=== PATIENT | male | born 1990 | race Two or more races ===

== ENCOUNTER 2023-03-16 21:10 | Inpatient (IN) | payer MEDICAID, SELFPAY ==
[2023-03-16 21:16] VITALS: BP 137/82; RESP 16; TEMP 37.1
[2023-03-16 22:37] LABS: Add Urine Microscopic? NO; Charge for UA Resulting for Rev
[2023-03-16 22:38] VITALS: RESP 16
[2023-03-16 22:39] LABS: Bilirubin Urine Neg (Negative); Blood Urine Neg (Negative); Glucose Urine UA Norm (Normal); Ketones Urine Negative (Negative); Leukocyte Esterase Urine Negative (Negative); Nitrate Urine Negative (Negative); Protein Urine Neg (Negative); Urine Appearance Clear (CLEAR); Urine Color Yellow (Yellow); Urobilinogen Urine Neg (Negative); pH Urine 7 (5-7)
[2023-03-16 22:49] LABS: Amphetamines Screen Urine Negative (Negative); Barbiturates Screen Urine Negative (Negative); Benzodiazepines Screen Urine Positive (Negative); Cocaine Screen Urine Negative (Negative); Opiate Screen Urine Negative (Negative); PCP Screen Urine Negative (Negative); THC Screen Urine Negative (Negative)
[2023-03-16 23:02] VITALS: BP 123/76; PULSE 77; RESP 18; TEMP 36.6; O2SAT 99
[2023-03-16 23:03] LABS: Basophils # 0.1 10^3/uL (0.0-0.1); Basophils % 0.5 %; Eosinophils # 0.3 10^3/uL (0.0-0.8); Eosinophils % 2.7 %; Hematocrit 45.5 % (37-53); Lymphocytes # 1.8 10^3/uL (0.8-4.8); Lymphocytes % 19.5 %; Mean Corpuscular HGB Conc 32.3 g/dL (30-55); Mean Corpuscular Hemoglobin 28.1 pg (27-33); Mean Corpuscular Volume 86.8 fl (82-101); Mean Platelet Volume 9.2 fL (7.4-10.4); Monocytes # 0.5 10^3/uL (0.2-0.9); Monocytes % 5.4 %; Neutrophils # 6.64 10^3/uL (1.8-7.7); Neutrophils % 71.7 %; Nucleated Red Blood Cells % 0 %; Platelet Count 377 10^3/cmm (157-399); Red Blood Count 5.24 10^6/uL (3.85-5.65); Red Cell Distribution Width 11.9 % (12.1-15.1); White Blood Count 9.27 10^3/uL (3.29-11.43)
--- NOTE | 2023-03-16 23:08 | ED.C_ITS ---
HPI - Psych 2 General: Chief Complaint: Psychiatric Symptoms Stated Complaint: MHE Time Seen by Provider: 03/16/23 21:23 History of Present Illness: 32-year-old male patient currently an in patient at a local rehab facility. He presents stating that he became homicidal today after having hallucinations. These hallucinations are auditory hallucinations, and the voices were telling him to hurt people. He has had these before. He has been in rehab for 1 week, and in a psychiatric inpatient facility prior to that. He has no other health problems he says. Review of Systems 2 Const: Denies: fever(s), chills or body aches Eyes: Denies: change in vision Card: Denies: chest pain or palpitations Resp: Denies: dyspnea, productive cough, non-productive cough or wheezing GI: Denies: abdominal pain, nausea, vomiting, diarrhea or hematochezia Skin/Breast: Denies: rash Neuro: Denies: headache(s), weakness in extremities, dizziness or confusion Physical Exam 2 Const: COMMON NORMALS: no acute distress GENERAL APPEARANCE: cooperative; not ill appearing and not frail appearing HENMT: COMMON NORMALS: normocephalic, atraumatic and Normal external nose present HEAD & SCALP: normocephalic and atraumatic FACE & SINUS: normal facial exam and face symmetric NOSE: Normal external nose present Eye: COMMON NORMALS: Equal, round and reactive pupils present and EOMs intact bilaterally PUPIL: Yes Equal, round and reactive pupils present Neck/C-Spine: GENERAL: Yes trachea midline Chest: CHEST: Yes Symmetrical chest wall rise Resp: COMMON NORMALS: normal respiratory effort, No retractions, No use of accessory muscles and clear to auscultation bilaterally AUSCULTATION: clear to auscultation bilaterally Cardio: COMMON NORMALS: regular rate and regular rhythm RATE: regular rate RHYTHM: regular rhythm GI: COMMON NORMALS: Normal to inspection, nondistended, normoactive bowel sounds present Extremity: COMMON NORMALS: no pedal edema Neuro: LAURENCE COMA SCALE: document GCS findings Westley coma scale eye opening: Spontaneous Laurence coma scale verbal response: Orientated Laurence coma scale motor response: Obey commands Laurence coma scale total score: 15 S ENSORY EXAM: Yes extremities (intact) Psych: COMMON NORMALS: speech normal SPEECH: Yes normal speech Skin: COMMON NORMALS: no rashes or lesions noted GENERAL SKIN EXAM: no rashes or lesions noted Course 2 Vital Signs: Vital signs: Vital Signs Temperature 98.7 F 03/16/23 21:16 Respiratory Rate 17 03/16/23 23:19 Blood Pressure 137/82 03/16/23 21:16 [facility] - Psych Medical Decision Making Patient has been calm and cooperative here. He does ask for clonazepam for anxiety. He was offered Zyprexa, but declined. Mildly suspicious about overuse of benzodiazepines, as he is positive on his drug screen despite being in a rehabilitation facility. He is otherwise medically stable. Spoke with psychiatry, they are willing to admit. Lab Data 03/16/23 22:45 03/16/23 22:45 Laboratory Results Urine Color Yellow (Yellow) 03/16/23 21:38 Urine Appearance Clear (CLEAR) 03/16/23 21:38 Urine pH 7 (5-7) 03/16/23 21:38 Ur Specific [place] 1.010 (1.005-1.030) 03/16/23 21:38 Urine Protein Neg (Negative) 03/16/23 21:38 Urine Glucose (UA) Norm (Normal) 03/16/23 21:38 Urine Ketones Negative (Negative) 03/16/23 21:38 Urine Blood Neg (Negative) 03/16/23 21:38 Urine Nitrate Negative (Negative) 03/16/23 21:38 Urine Bilirubin Neg (Negative) 03/16/23 21:38 Urine Urobilinogen Neg mg/dL (Negative) 03/16/23 21:38 Ur Leukocyte Esterase Negative (Negative) 03/16/23 21:38 Urine Opiates Screen Negative ng/mL (Negative) 03/16/23 21:38 Ur Barbiturates Screen Negative ng/mL (Negative) 03/16/23 21:38 Ur Phencyclidine Scrn Negative ng/mL (Negative) 03/16/23 21:38 Ur Amphetamines Screen Negative ng/mL (Negative) 03/16/23 21:38 U Benzodiazepines Scrn Positive ng/mL (Negative) H 03/16/23 21:38 Urine Cocaine Screen Negative ng/mL (Negative) 03/16/23 21:38 U Marijuana (THC) Screen Negative ng/mL (Negative) 03/16/23 21:38 No radiology studies performed this visit Discharge Plan Discharge Patient Disposition: Admitted As Inpatient Admit Provider: Rosas Mendoza Clinical Impression: Homicidal ideation Condition: Stable Coding Level of Care Code ED [employer] for Roxy Ruiz
[2023-03-16 23:19] VITALS: RESP 17
[2023-03-16 23:26] LABS: Alanine Aminotransferase 21 U/L (0-41); Albumin Level 4.7 g/dL (3.5-5.2); Alkaline Phosphatase 82 U/L (40-130); Anion Gap 13.1 (5-19); Aspartate Amino Transferase 18 U/L (0-40); Blood Urea Nitrogen 9 mg/dL (6-20); Calcium 9.8 mg/dL (8.5-10.5); Carbon Dioxide 29 mmol/L (22-29); Chloride 98 mmol/L (98-107); Globulin 2.9 g/dL (1.3-4.6); Glomerular Filtration Rate 97.2 mL/min (90-130); Glucose 90 mg/dL (65-115); Osmolality Calculated 280 mOsm/kg (285-295); Potassium 4.1 mmol/L (3.5-5.1); Sodium 136 mmol/L (136-145); Total Bilirubin 0.2 mg/dL (0.15-1.2); Total Protein 7.6 g/dL (6.6-8.7)
[2023-03-16 23:36] LABS: Acetaminophen < 5.0 ug/mL (10-30); Alcohol Level < 10 mg/dL (0-10); Salicylate < 0.3 mg/dL (3-10)
[2023-03-17] MEDS: trazodone 50 mg Tablet PO (00:03)
[2023-03-17 06:00] VITALS: BP 108/68; PULSE 66; RESP 16; O2SAT 98
--- NOTE | 2023-03-17 11:13 | P.NPUHP_ITS ---
Providers/Chief Complaint 2 Admitting Physician: Rosas Mendoza MD Chief Complaint: MHE HPI NPU History of Present Illness Neto Simpson is a 32 year old male who presented to the emergency department with the following report: Chief Complaint: Psychiatric Symptoms Stated Complaint: MHE Time Seen by Provider: 03/16/23 21:23 History of Present Illness: 32-year-old male patient currently an inpatient at a local rehab facility. He presents stating that he became homicidal today after having hallucinations. These hallucinations are auditory hallucinations, and the voices were telling him to hurt people. He has had these before. He has been in rehab for 1 week, and in a psychiatric inpatient facility prior to that. He has no other health problems he says. The patient was admitted to the neuropsychiatric unit for definitive treatment of those issues. The patient presents today endorsing that he is taking Vraylar and Prozac and would like to start Klonopin again. He reports that he was in drug rehabilitation because he didn?t have a place to go, but that he was ?clean from everything.? The patient reports that he is trying to get his ADHD treated. The patient endorses that he was at a rehab as he was sent there from [facility] in [place]. He reports that when he gets around people, he gets really anxious and starts hearing stuff, and has panic attacks, and he was ?sent away? from that facility. He is looking at getting into a long term house, but currently has nowhere to live. He reports that he is now on disability. He reports that rehab was more like a skilled nursing. He reports that he won?t actually be homeless or on the streets, referring to his mom, who is his guardian helping with that. The patient reports that he has had four psychiatric hospitalizations since January. He reports that, in his life, he has had over a dozen psychiatric hospitalizations. He reports that he was getting outpatient services at [facility] in [place]. He reports that his stepdad kicked him out of the house because he was doing some dumb stuff, and ever since then he has been in and out of hospitals and trying to find a place. He reports that he has an assault charge from a [facility] on his record and no facilities want to take him.? He reports that there is long term house in [place] they are looking into. He endorses that he had some services in [place] for ADHD. He reports that he tested positive for weed so they had to wait on that treatment, and his stepdad kicked him out the same day. He reports that the provider was trying to put him on Vyvanse. He reports that he has post-traumatic stress disorder symptoms which lead to him wanting to get violent and he feels trapped and like he needs to run, like he is in flight or fight mode, survival mode. He reports that he wants Vyvanse and Clonazepam, as they ?level me out and help me focus.? He reports that the Prozac helps with his depression. He reports that he is also on Suboxone which helps with the cravings. The patient reports that he smokes about a pack of cigarettes a day. He denies alcohol use. He reports that he ?dabbles? in marijuana. He denies cocaine. He reports that he did a little bit of methamphetamine about two months ago when he ?slipped.? He endorses that he overdosed on fentanyl last year. The patient reports that he just completed rehab two weeks ago. He reports that he was on 8 mg of the Suboxone two weeks ago, and he was going to [facility] in [place], and they sent him with a five days' supply, and then he couldn?t find a place to get refills. He reports that he went to [facility] and was on Suboxone there, and he did not get any supply when he left, and he was wondering if the Suboxone could be ?jumped up? to where he used to be at the 8 mg. The patient endorses DUI at age 20. He reports that he had one possession charge at 24 years old and went to skilled nursing. The patient reports that he gets panic attacks that last all day, and that goes into a manic episode, and then he starts to ?trip? on if people are actually saying shit to him or implying things, having paranoia, and he wants to fight and gets violent. He reports that he started hearing voices about ten years ago. He did bath salts, when he was 22 years old. He reports that he did them twice and went into psychosis for a year. He reports that his aunt has schizophrenia. He reports that now just the anxiety ramps up the voices. He reports that Vraylar kind of helps but it doesn?t, that is why he takes the Klonopin to calm down. He reports that he does not have depression anymore and thinks the Prozac has helped. He reports that he was diagnosed with major depressive disorder at [facility], recently, but that he does not feel depressed all the time. He endorses low mood, and previous suicidal thoughts but not currently. He reports that the paranoia is prevalent now. The patient endorses nightmares and flashbacks from time in skilled nursing. He reports [facility], longest stint was a year to a year and a half. He has also done county time. He reports that the last time he got out was in December, and that pretty much did him in and he can?t deal with society. PSYCHIATRIC HISTORY: As above. SUBSTANCE ABUSE HISTORY: As above.? FAMILY HISTORY: The patient endorses mental health issues on both sides of the family. He endorses addiction issues on dad?s side of the family. He denies suicide attempts or completions in his family. DEVELOPMENTAL HISTORY: The patient denies any issues with his mother?s or delivery of him. The patient reports learning to walk and talk and meeting developmental milestones on time. The patient denies speech therapy, learning support, emotional support, but maybe special education classes. PSYCHOSOCIAL HISTORY: The patient reports that his mother and father were together at his for about six years. He reports that he has a younger sister and brother from that union. He reports that he has a couple half-sisters through his dad. He describes his childhood as pretty good. He reports that at 15 he had a burglary charge. He endorses that he was in placement for four months. He denies emotional, physical, or sexual abuse. He endorses trauma from being in skilled nursing and from time on the streets. He went to the eleventh grade in high school and did not graduate but got his GED. He denies additional training. He endorses being heterosexual, with no long-term relationships. He has not been or had children. Denies service or a confucianist belief system. He reports that his longest job was three months. He endorses that he is currently homeless. He reports that his mom is his guardian and is working with social work to find him a place. LEGAL HISTORY: The patient reports he has been to penitentiary ten times, the longest time being a year and a half. MEDICAL HISTORY: The patient denies any known allergies to medications. The patient endorses Hepatitis C, that was in remission, and he is unsure of that status now. Meds NPU Home Medications Medication Instructions Recorded Confirmed Last Taken Type chlorpromazine 50 mg tablet 50 mg PO BEDTIME 03/16/23 03/16/23 Unknown History mirtazapine 15 mg tablet 15 mg PO BEDTIME 03/16/23 03/16/23 Unknown History cariprazine 3 mg capsule (Vraylar) 3 mg PO DAILY 03/17/23 03/17/23 Unknown History fluoxetine 60 mg tablet 60 mg PO DAILY 03/17/23 03/17/23 Unknown History prazosin 1 mg capsule 1 mg PO QPM 03/17/23 03/17/23 Unknown History Allergies Allergy/AdvReac Type Severity Reaction Status Date / Time haloperidol [From Haldol] Allergy ALGY-Anaphy Verified 03/17/23 18:02 laxis Mental Status Exam 2 MSE Comments: This is a well-nourished, well-developed, white male, in hospital scrubs, with limited grooming and eye contact. No abnormal movements, except for mild psychomotor retardation. Cooperative with exam in mild distress. Speech was normal rate and volume. Mood described as anxious and overwhelmed; affect congruent. Thought process, organized. Thought content: patient denied any suicidal or homicidal ideation, there were no delusions reported or noted, patient denied any auditory or visual hallucinations. Attention, concentration, and memory appeared intact, but none were formally tested. Alert and oriented times three. Insight and judgment appear limited versus impaired. Impulse control is limited versus impaired. Vitals/I&O/Wt Last Vital Signs Temp 97.8 F 03/16/23 23:02 Pulse 66 03/17/23 06:00 Resp 16 03/17/23 06:00 BP 108/68 03/17/23 06:00 Pulse Ox 98 03/17/23 06:00 O2 Del Method Room Air 03/16/23 23:06 Weight last 48 hrs Weight 90.446 kg Weight 86.183 kg Data NPU 03/16/23 22:45 03/16/23 22:45 A&P Assessment and plan (1) Homicidal ideation: (2) Schizoaffective disorder: (3) Methamphetamine use disorder, severe: (4) Psychosis: Plan This is a 32-year-old white male with a long history of addiction, legal challenges and reported mental health and addiction issues who presents from [facility] with reports that he had failure to adjust their and is with guardian and they are looking for alternative residential situations. 1.? Further evaluate records to determine medications. 2.? Encourage individual, group, and milieu therapy. 3.? Continue q-15-minute checks for safety. 4.? Recommend sober living treatment at the highest level of care to which the patient is willing to commit. Involuntary Hold Information 2 96 Hour Hold: 96 Hour Involuntary Admission: No Attestations NPU 2 Medical Necessity Statement*: Inpatient hospitalization is medically necessary and the clinically appropriate intervention, at this time. We will monitor medications and make changes as indicated. Patient will be in the hospital for over two midnights. Likely length of stay is three to five days. Coding Level of Care Code Acute Code for [facility] Fwd Diagnoses Homicidal ideation R45.850 Schizoaffective disorder F25.9 Methamphetamine use disorder, severe F15.20 Psychosis F29
[2023-03-17] MEDS: nicotine 2 mg Gum BUCCAL (11:29)
[2023-03-17 14:00] VITALS: BP 110/67; PULSE 81; RESP 16; TEMP 36.8; O2SAT 97
[2023-03-17] MEDS: nicotine 4 mg lozenge MUCOUS MEM ×2 (14:37→17:02)
[2023-03-17] MEDS: OLANZapine 5 mg ODT PO (18:08)
[2023-03-17 19:41] VITALS: BP 117/78; PULSE 85; RESP 16; TEMP 36.4; O2SAT 96
[2023-03-17] MEDS: fluoxetine 20 mg Capsule 60 MG PO (21:02)
[2023-03-17] MEDS: mirtazapine 15 mg Tablet PO (21:02)
[2023-03-18 06:00] VITALS: BP 112/68; PULSE 66; RESP 16; O2SAT 97
[2023-03-18] MEDS: nicotine 4 mg lozenge MUCOUS MEM ×5 (07:49→19:35)
[2023-03-18] MEDS: fluoxetine 20 mg Capsule 60 MG PO (07:49)
[2023-03-18 14:00] VITALS: BP 126/78; PULSE 77; RESP 16; TEMP 36.6; O2SAT 98
[2023-03-18] MEDS: hyDROXYzine 25 mg Capsule 50 MG PO (18:37)
--- NOTE | 2023-03-18 18:37 | PC.NURSE ---
PRN VISTARIL 50 MG GIVEN PO PER PT C/O STATED ANXIETY, SPECIFICALLY ASKING FOR ZYPREXA BUT PATIENT DOES NOT APPEAR TO HAVE PSYCHOSIS OR AGGRESSION, WAS CALMLY READING A BOOK IN HIS ROOM.
--- NOTE | 2023-03-18 18:46 | W.PM.NPUPNS ---
Subjective NPU Subjective: Patient presented today reporting that he is doing fine. He continues to lobby for medication adjustments vet will be controlled substances including Klonopin and possible ADHD medication like Vyvanse. We discussed this being a better decision for the place where he is established versus sending him to a place with Klonopin and Suboxone is his medications. He does not seem to understand disposition and suggest that he could just go to a fci if he is not going to get the help and medications that I need and that work. We discussed that prescribing medication also involves the likelihood that this regimen would be supported moving forward or do like he acknowledges has been done before where he is given the medication for several days inpatient and then discharged without that medication. Mental Status Exam MSE Comments: This is a well-nourished, well-developed, white male, in hospital scrubs, with limited grooming and eye contact. No abnormal movements, except for mild psychomotor retardation. Cooperative with exam in mild distress. Speech was normal rate and volume. Mood described as anxious and overwhelmed; affect congruent. Thought process, organized. Thought content: patient denied any suicidal or homicidal ideation, there were no delusions reported or noted, patient denied any auditory or visual hallucinations. Attention, concentration, and memory appeared intact, but none were formally tested. Alert and oriented times three. Insight and judgment appear limited versus impaired. Impulse control is limited versus impaired. Vitals/I&O/Wt Last Vital Signs Temp 97.8 F 03/18/23 14:00 Pulse 77 03/18/23 14:00 Resp 16 03/18/23 14:00 BP 126/78 03/18/23 14:00 Pulse Ox 98 03/18/23 14:00 O2 Del Method Room Air 03/18/23 14:00 Data NPU 03/16/23 22:45 03/16/23 22:45 A&P Assessment and plan (1) Homicidal ideation: (2) Schizoaffective disorder: (3) Methamphetamine use disorder, severe: (4) Psychosis: Plan This is a 32-year-old white male with a long history of addiction, legal challenges and reported mental health and addiction issues who presents from [facility] with reports that he had failure to adjust their and is with guardian and they are looking for alternative residential situations. 1.? Further evaluate records to determine medications. 2.? Encourage individual, group, and milieu therapy. 3.? Continue q-15-minute checks for safety. 4.? Recommend sober living treatment at the highest level of care to which the patient is willing to commit. 5. Speak with guardian about medication options as well as the fact that we will not be able to keep him here while they look for alternative residential settings.. Involuntary Hold Information 96 Hour Hold: 96 Hour Involuntary Admission: No Attestations NPU Medical Necessity Statement*: Inpatient hospitalization is medically necessary and the clinically appropriate intervention, at this time. We will monitor medications and make changes as indicated. Likely length of stay is 2-4 days. Coding Level of Care Code Acute Code for [facility] Fwd Diagnoses Homicidal ideation R45.850 Schizoaffective disorder F25.9 Methamphetamine use disorder, severe F15.20 Psychosis F29
[2023-03-18] MEDS: prazosin 1 mg Capsule PO (19:35)
[2023-03-18] MEDS: trazodone 50 mg Tablet PO (19:35)
[2023-03-18] MEDS: mirtazapine 15 mg Tablet PO (19:35)
[2023-03-18 20:23] VITALS: BP 102/59; PULSE 86; RESP 18; O2SAT 97
[2023-03-19 06:00] VITALS: BP 91/62; PULSE 76; RESP 18; O2SAT 99
[2023-03-19] MEDS: fluoxetine 20 mg Capsule 60 MG PO (07:58)
[2023-03-19] MEDS: nicotine 4 mg lozenge MUCOUS MEM ×6 (07:58→19:54)
[2023-03-19] MEDS: NON-FORMULARY MEDICATION (Cariprazine [Vraylar] 3 mg capsule) 3 EACH PO (09:31)
[2023-03-19 14:00] VITALS: BP 110/73; PULSE 90; RESP 14; TEMP 36.3; O2SAT 97
--- NOTE | 2023-03-19 18:09 | P.NPUPN_ITS ---
Subjective NPU 2 Subjective: Patient presented today continuing to lobby for medications as he sees appropriate. Did receive a Susanna scale done December 14, 2022 with diagnostic impression of ADHD inattentive type. We continue to discuss the challenges that he may face getting someone to move forward with treatment with a stimulant given some of his challenges and identified also that for me people treating him with a stimulant would take the Klonopin and Suboxone off the table. We continue to discuss that we would not be able to allow him to stay here for a prolonged time if the level 2 placement did not move quickly. Mental Status Exam 2 MSE Comments: This is a well-nourished, well-developed, white male, in hospital scrubs, with limited grooming and eye contact. No abnormal movements, except for mild psychomotor retardation. Cooperative with exam in mild distress. Speech was normal rate and volume. Mood described as anxious and overwhelmed; affect congruent. Thought process, organized. Thought content: patient denied any suicidal or homicidal ideation, there were no delusions reported or noted, patient denied any auditory or visual hallucinations. Attention, concentration, and memory appeared intact, but none were formally tested. Alert and oriented times three. Insight and judgment appear limited versus impaired. Impulse control is limited versus impaired. Vitals/I&O/Wt Last Vital Signs Temp 97.9 F 03/19/23 19:57 Pulse 84 03/19/23 19:57 Resp 16 03/19/23 19:57 BP 109/61 03/19/23 19:57 Pulse Ox 97 03/19/23 19:57 O2 Del Method Room Air 03/19/23 19:57 Data NPU 03/16/23 22:45 03/16/23 22:45 A&P Assessment and plan (1) Homicidal ideation: (2) Schizoaffective disorder: (3) Methamphetamine use disorder, severe: (4) Psychosis: Plan This is a 32-year-old white male with a long history of addiction, legal challenges and reported mental health and addiction issues who presents from [facility] with reports that he had failure to adjust their and is with guardian and they are looking for alternative residential situations. 1.? Further evaluate records to determine medications. 2.? Encourage individual, group, and milieu therapy. 3.? Continue q-15-minute checks for safety. 4.? Recommend sober living treatment at the highest level of care to which the patient is willing to commit. 5. Speak with guardian about medication options as well as the fact that we will not be able to keep him here while they look for alternative residential settings. His level 2 paperwork is complete but there is some question of whether they will need significant time for placement and discussing with the mother and discharged home given that possibility Involuntary Hold Information 2 96 Hour Hold: 96 Hour Involuntary Admission: No Attestations NPU 2 Medical Necessity Statement*: Inpatient hospitalization is medically necessary and the clinically appropriate intervention, at this time. We will monitor medications and make changes as indicated. Likely length of stay is 2-4 days. Coding Level of Care Code Acute Code for [facility] Fwd Diagnoses Homicidal ideation R45.850 Schizoaffective disorder F25.9 Methamphetamine use disorder, severe F15.20 Psychosis F29
[2023-03-19] MEDS: prazosin 1 mg Capsule PO (19:55)
[2023-03-19] MEDS: mirtazapine 15 mg Tablet PO (19:55)
[2023-03-19] MEDS: trazodone 50 mg Tablet PO (19:56)
[2023-03-19 19:57] VITALS: BP 109/61; PULSE 84; RESP 16; TEMP 36.6; O2SAT 97
[2023-03-20 06:00] VITALS: BP 133/71; PULSE 82; RESP 16; O2SAT 97
--- NOTE | 2023-03-20 07:14 | P.NPUPN_ITS ---
Subjective NPU 2 Subjective: Patient presented today reporting that he is doing okay. He continues to be frustrated at the lack of movement on medication for ADHD. We discussed the current situation with him being rejected by multiple facilities and the fact that he and his guardian/mother may need to explore some different avenues for placement given some of his history. He endorsed an openness to any options for placement for him to get stable. He denied any side effects to his current medications. Mental Status Exam 2 MSE Comments: This is a well-nourished, well-developed, white male, in hospital scrubs, with limited grooming and eye contact. No abnormal movements, except for mild psychomotor retardation. Cooperative with exam in mild distress. Speech was normal rate and volume. Mood described as anxious and overwhelmed; affect congruent. Thought process, organized. Thought content: patient denied any suicidal or homicidal ideation, there were no delusions reported or noted, patient denied any auditory or visual hallucinations. Attention, concentration, and memory appeared intact, but none were formally tested. Alert and oriented times three. Insight and judgment appear limited versus impaired. Impulse control is limited versus impaired. Vitals/I&O/Wt Last Vital Signs Temp 97.9 F 03/19/23 19:57 Pulse 82 03/20/23 06:00 Resp 16 03/20/23 06:00 BP 133/71 03/20/23 06:00 Pulse Ox 97 03/20/23 06:00 O2 Del Method Room Air 03/20/23 06:00 Data NPU 03/16/23 22:45 03/16/23 22:45 A&P Assessment and plan (1) Homicidal ideation: (2) Schizoaffective disorder: (3) Methamphetamine use disorder, severe: (4) Psychosis: Plan This is a 32-year-old white male with a long history of addiction, legal challenges and reported mental health and addiction issues who presents from [facility] with reports that he had failure to adjust their and is with guardian and they are looking for alternative residential situations. 1.? Further evaluate records to determine medications. 2.? Encourage individual, group, and milieu therapy. 3.? Continue q-15-minute checks for safety. 4.? Recommend sober living treatment at the highest level of care to which the patient is willing to commit. 5. Speak with guardian about medication options as well as the fact that we will not be able to keep him here while they look for alternative residential settings. His level 2 paperwork is complete but there is some question of whether they will need significant time for placement and discussing with the mother and discharged home given that possibility Involuntary Hold Information 2 96 Hour Hold: 96 Hour Involuntary Admission: No Attestations NPU 2 Medical Necessity Statement*: Inpatient hospitalization is medically necessary and the clinically appropriate intervention, at this time. We will monitor medications and make changes as indicated. Likely length of stay is 2-4 days. Coding Level of Care Code Acute Code for [facility] Fwd Diagnoses Homicidal ideation R45.850 Schizoaffective disorder F25.9 Methamphetamine use disorder, severe F15.20 Psychosis F29
[2023-03-20] MEDS: fluoxetine 20 mg Capsule 60 MG PO (07:28)
[2023-03-20] MEDS: NON-FORMULARY MEDICATION (Cariprazine [Vraylar] 3 mg capsule) 3 EACH PO (07:28)
[2023-03-20] MEDS: nicotine 4 mg lozenge MUCOUS MEM (07:28)
[2023-03-20] MEDS: nicotine 21 mg Patch 1 PATCH TRANSDERMA (09:38)
[2023-03-20 14:00] VITALS: BP 111/78; PULSE 80; RESP 14; TEMP 36.4; O2SAT 100
[2023-03-20 19:51] VITALS: BP 103/67; PULSE 83; RESP 18; TEMP 36.5; O2SAT 97
[2023-03-20] MEDS: prazosin 1 mg Capsule PO (20:03)
[2023-03-20] MEDS: mirtazapine 15 mg Tablet PO (20:03)
[2023-03-21] MEDS: NON-FORMULARY MEDICATION (Cariprazine [Vraylar] 3 mg capsule) 3 EACH PO (08:37)
[2023-03-21] MEDS: fluoxetine 20 mg Capsule 60 MG PO (08:37)
[2023-03-21] MEDS: nicotine 4 mg lozenge MUCOUS MEM ×5 (09:03→19:49)
--- NOTE | 2023-03-21 13:47 | W.PM.NPUPNS ---
Subjective NPU Subjective: Patient presented today reporting that things are going okay. He reports that he and his mother have spoken and that [facility] reports having 2 labs available and that no one bed will be available for him if he gets there quickly. We discussed working with the treatment team to find out if that is in fact true #1 and if his guardian is excepting of that as the discharge plan #2. He denies any problems with the medication and was for the first time more focused on this discharge possibility than trying to get 1 of those 3 medications started. He denied any side effects of his current medications. Mental Status Exam MSE Comments: This is a well-nourished, well-developed, white male, in hospital scrubs, with limited grooming and eye contact. No abnormal movements, except for mild psychomotor retardation. Cooperative with exam in mild distress. Speech was normal rate and volume. Mood described as anxious and overwhelmed; affect congruent. Thought process, organized. Thought content: patient denied any suicidal or homicidal ideation, there were no delusions reported or noted, patient denied any auditory or visual hallucinations. Attention, concentration, and memory appeared intact, but none were formally tested. Alert and oriented times three. Insight and judgment appear limited versus impaired. Impulse control is limited versus impaired. Vitals/I&O/Wt Last Vital Signs Temp 97.7 F 03/20/23 19:51 Pulse 83 03/20/23 19:51 Resp 18 03/20/23 19:51 BP 103/67 03/20/23 19:51 Pulse Ox 97 03/20/23 19:51 O2 Del Method Room Air 03/20/23 19:51 Data NPU 03/16/23 22:45 03/16/23 22:45 A&P Assessment and plan (1) Homicidal ideation: (2) Schizoaffective disorder: (3) Methamphetamine use disorder, severe: (4) Psychosis: Plan This is a 32-year-old white male with a long history of addiction, legal challenges and reported mental health and addiction issues who presents from [facility] with reports that he had failure to adjust their and is with guardian and they are looking for alternative residential situations. 1.? Further evaluate records to determine medications. 2.? Encourage individual, group, and milieu therapy. 3.? Continue q-15-minute checks for safety. 4.? Recommend sober living treatment at the highest level of care to which the patient is willing to commit. 5. Speak with guardian about medication options as well as the fact that we will not be able to keep him here while they look for alternative residential settings. His level 2 paperwork is complete but there is some question of whether they will need significant time for placement and discussing with the mother and discharged home given that possibility. Will discuss with mother patient's report of them being open to [facility]. Involuntary Hold Information 96 Hour Hold: 96 Hour Involuntary Admission: No Attestations NPU Medical Necessity Statement*: Inpatient hospitalization is medically necessary and the clinically appropriate intervention, at this time. We will monitor medications and make changes as indicated. Likely length of stay is 1-3 days. Coding Level of Care Code Acute Code for g Fwd Diagnoses Homicidal ideation R45.850 Schizoaffective disorder F25.9 Methamphetamine use disorder, severe F15.20 Psychosis F29
[2023-03-21 14:00] VITALS: BP 117/74; PULSE 78; RESP 14; TEMP 36.6; O2SAT 98
[2023-03-21] MEDS: prazosin 1 mg Capsule PO (20:29)
[2023-03-21] MEDS: mirtazapine 15 mg Tablet PO (20:29)
[2023-03-21] MEDS: trazodone 50 mg Tablet PO (20:30)
[2023-03-21 20:38] VITALS: BP 151/81; PULSE 86; RESP 20; O2SAT 97
[2023-03-22] MEDS: nicotine 4 mg lozenge MUCOUS MEM ×4 (07:27→15:42)
[2023-03-22] MEDS: fluoxetine 20 mg Capsule 60 MG PO (08:31)
[2023-03-22] MEDS: NON-FORMULARY MEDICATION (Cariprazine [Vraylar] 3 mg capsule) 3 EACH PO (08:31)
--- NOTE | 2023-03-22 08:44 | P.NPUPN_ITS ---
Subjective NPU 2 Subjective: Patient reporting that he is hopeful that he will be able to discharge to 1 of these places that maybe he has been before. He continues to have reluctance that we have been unwilling to start any of the controlled substances that he thinks will help. We discussed that Dr. Paula would be here tomorrow and he would take a fresh look at things and decide whether he thinks any of them would be reasonable. He denied any side effects of his current medications. Mental Status Exam 2 MSE Comments: This is a well-nourished, well-developed, white male, in hospital scrubs, with limited grooming and eye contact. No abnormal movements, except for mild psychomotor retardation. Cooperative with exam in mild distress. Speech was normal rate and volume. Mood described as anxious and overwhelmed; affect congruent. Thought process, organized. Thought content: patient denied any suicidal or homicidal ideation, there were no delusions reported or noted, patient denied any auditory or visual hallucinations. Attention, concentration, and memory appeared intact, but none were formally tested. Alert and oriented times three. Insight and judgment appear limited versus impaired. Impulse control is limited versus impaired. Vitals/I&O/Wt Last Vital Signs Temp 98 F 03/21/23 14:00 Pulse 86 03/21/23 20:38 Resp 20 H 03/21/23 20:38 BP 151/81 03/21/23 20:38 Pulse Ox 97 03/21/23 20:38 O2 Del Method Room Air 03/21/23 20:38 Weight last 48 hrs Weight 82.554 kg Data NPU 03/16/23 22:45 03/16/23 22:45 A&P Assessment and plan (1) Homicidal ideation: (2) Schizoaffective disorder: (3) Methamphetamine use disorder, severe: (4) Psychosis: Plan This is a 32-year-old white male with a long history of addiction, legal challenges and reported mental health and addiction issues who presents from [facility] with reports that he had failure to adjust their and is with guardian and they are looking for alternative residential situations. 1.? Further evaluate records to determine medications. 2.? Encourage individual, group, and milieu therapy. 3.? Continue q-15-minute checks for safety. 4.? Recommend sober living treatment at the highest level of care to which the patient is willing to commit. 5. Speak with guardian about medication options as well as the fact that we will not be able to keep him here while they look for alternative residential settings. His level 2 paperwork is complete but there is some question of whether they will need significant time for placement and discussing with the mother and discharged home given that possibility. Will discuss with mother patient's report of them being open to [facility]. Involuntary Hold Information 2 96 Hour Hold: 96 Hour Involuntary Admission: No Attestations NPU 2 Medical Necessity Statement*: Inpatient hospitalization is medically necessary and the clinically appropriate intervention, at this time. We will monitor medications and make changes as indicated. Likely length of stay is 2-3 days. Coding Level of Care Code Acute Code for [facility] Fwd Diagnoses Homicidal ideation R45.850 Schizoaffective disorder F25.9 Methamphetamine use disorder, severe F15.20 Psychosis F29
[2023-03-22 14:00] VITALS: BP 112/78; PULSE 106; RESP 18; TEMP 36.6; O2SAT 97
[2023-03-22] MEDS: mirtazapine 15 mg Tablet PO (20:01)
[2023-03-22] MEDS: prazosin 1 mg Capsule PO (20:01)
[2023-03-22 20:30] VITALS: BP 105/63; PULSE 70; RESP 16; TEMP 36.4; O2SAT 95
[2023-03-23 06:00] VITALS: RESP 16
[2023-03-23] MEDS: NON-FORMULARY MEDICATION (Cariprazine [Vraylar] 3 mg capsule) 3 EACH PO (08:27)
[2023-03-23] MEDS: fluoxetine 20 mg Capsule 60 MG PO (08:27)
[2023-03-23] MEDS: nicotine 4 mg lozenge MUCOUS MEM ×6 (08:28→20:20)
[2023-03-23 14:00] VITALS: BP 127/73; PULSE 102; RESP 18; TEMP 36.6; O2SAT 97
--- NOTE | 2023-03-23 16:19 | P.NPUPN_ITS ---
Subjective NPU 2 Subjective: 32-year-old male admitted with homicidal ideation with a history of psychosis and depression and ADHD. Patient had reported that he continued to have anxiety and requested Klonopin. Patient had also reported having problems with staying on task. He had reported that he was hopeful at the possibility of attending were living in a more formalized treatment facility as he states he had been unable to manage his own self-care. He reported no side effects from his current medication regimen. Patient reports some sleep continuity disruption. Mental Status Exam 2 MSE Comments: This is a well-nourished, well-developed, white male, in hospital scrubs, with limited grooming and eye contact. No abnormal movements, except for mild psychomotor retardation. He was cooperative with exam in mild distress. Speech was normal rate and volume. Mood remained anxious. His affect was mood congruent. Thought process, organized. Thought content: patient denied any suicidal or homicidal ideation, there were no delusions reported or noted, patient denied any auditory or visual hallucinations. Attention, concentration, and memory appeared intact, but none were formally tested. Alert and oriented times three. Insight and judgment appear limited versus impaired. Impulse control is limited versus impaired. Vitals/I&O/Wt Last Vital Signs Temp 97.8 F 03/23/23 14:00 Pulse 102 H 03/23/23 14:00 Resp 18 03/23/23 14:00 BP 127/73 03/23/23 14:00 Pulse Ox 97 03/23/23 14:00 O2 Del Method Room Air 03/23/23 14:00 03/23/23 03/23/23 03/23/23 06:59 14:59 22:59 Intake Total 440 / 440 Balance 440 / 440 Data NPU 03/16/23 22:45 03/16/23 22:45 A&P Assessment and plan (1) Homicidal ideation: (2) Schizoaffective disorder: (3) Methamphetamine use disorder, severe: (4) Psychosis: Plan This is a 32-year-old white male with a long history of addiction, legal challenges and reported mental health and addiction issues who presents from [facility] with reports that he had failure to adjust their and is with guardian and they are looking for alternative residential situations. 1.? Further evaluate records to determine medications. 2.? Encourage individual, group, and milieu therapy. 3.? Continue q-15-minute checks for safety. 4.? Recommend sober living treatment at the highest level of care to which the patient is willing to commit. 5. Speak with guardian about medication options as well as the fact that we will not be able to keep him here while they look for alternative residential settings. His level 2 paperwork is complete but there is some question of whether they will need significant time for placement and discussing with the mother and discharged home given that possibility. Will discuss with mother patient's report of them being open to [facility]. 6. Consider adjustment or change in medications due to concerns of drug drug interactions associated with [id number] substrates including prozac, chlorpromazine, and vraylar. Involuntary Hold Information 2 96 Hour Hold: 96 Hour Involuntary Admission: No Attestations NPU 2 Medical Necessity Statement*: Inpatient hospitalization is medically necessary and the clinically appropriate intervention, at this time. We will monitor medications and make changes as indicated. Likely length of stay is 3-6 days. Coding Level of Care Code Acute Code for g Fwd Diagnoses Homicidal ideation R45.850 Schizoaffective disorder F25.9 Methamphetamine use disorder, severe F15.20 Psychosis F29
[2023-03-23 20:07] VITALS: BP 97/64; PULSE 89; RESP 18; TEMP 36.8; O2SAT 97
[2023-03-23] MEDS: trazodone 50 mg Tablet PO (20:19)
[2023-03-23] MEDS: mirtazapine 15 mg Tablet PO (20:19)
[2023-03-23] MEDS: prazosin 1 mg Capsule PO (20:19)
[2023-03-24 06:00] VITALS: BP 117/72; PULSE 85; RESP 16; TEMP 36.8; O2SAT 98
[2023-03-24] MEDS: fluoxetine 20 mg Capsule 60 MG PO (07:05)
[2023-03-24] MEDS: NON-FORMULARY MEDICATION (Cariprazine [Vraylar] 3 mg capsule) 3 EACH PO (07:05)
[2023-03-24] MEDS: nicotine 4 mg lozenge MUCOUS MEM ×7 (07:05→19:20)
--- NOTE | 2023-03-24 12:22 | W.PM.NPUPNS ---
Subjective NPU Subjective: 32-year-old male admitted with homicidal ideation with a history of psychosis, polysubstance abuse, depression and ADHD. Patient reported no side effects from his medication. He continued to endorse feeling depressed. He appeared easily distracted and continue to report having chronic problems with completing tasks while struggling with having difficulty sitting still as well. Patient had reported having some difficulties with sleep. He had endorsed depressed mood. He denied any racing thoughts. He had reported having continued problems with anxiety but did not endorse any panic symptoms. Mental Status Exam MSE Comments: This is a well-nourished, well-developed, white male, in hospital scrubs, with limited grooming and eye contact. No abnormal movements, except for mild psychomotor retardation. He was cooperative with exam in mild distress. Speech was normal rate and volume. Mood described as anxious. His affect was restricted today. Thought process was organized. Thought content: patient denied any suicidal or homicidal ideation, there were no delusions reported or noted, patient denied any auditory or visual hallucinations. Attention span was poor. Recent and remote memory appeared grossly intact. He was alert and oriented times three. Insight and judgment appear limited versus impaired. Impulse control is limited versus impaired. Vitals/I&O/Wt Last Vital Signs Temp 98.3 F 03/24/23 06:00 Pulse 85 03/24/23 06:00 Resp 16 03/24/23 06:00 BP 117/72 03/24/23 06:00 Pulse Ox 98 03/24/23 06:00 O2 Del Method Room Air 03/24/23 06:00 Weight last 48 hrs Weight 82.554 kg Data NPU 03/16/23 22:45 03/16/23 22:45 A&P Assessment and plan (1) Homicidal ideation: (2) Schizoaffective disorder: (3) Methamphetamine use disorder, severe: (4) Psychosis: Plan This is a 32-year-old white male with a long history of addiction, legal challenges and reported mental health and addiction issues who presents from [facility] with reports that he had failure to adjust their and is with guardian and they are looking for alternative residential situations. 1.? Further evaluate records to determine medications. 2.? Encourage individual, group, and milieu therapy. 3.? Continue q-15-minute checks for safety. 4.? Recommend sober living treatment at the highest level of care to which the patient is willing to commit. 5. Speak with guardian about medication options as well as the fact that we will not be able to keep him here while they look for alternative residential settings. His level 2 paperwork is complete but there is some question of whether they will need significant time for placement and discussing with the mother and discharged home given that possibility. Will discuss with mother patient's report of them being open to [facility]. 6. Consider adjustment or change in medications due to concerns of drug drug interactions associated with [id number] substrates including prozac, chlorpromazine, and vraylar. Will d/c thorazine. Reduce prozac to 40mg daily and increase remeron to 30mg po qhs. Involuntary Hold Information 96 Hour Hold: 96 Hour Involuntary Admission: No Attestations NPU Medical Necessity Statement*: Inpatient hospitalization is medically necessary and the clinically appropriate intervention, at this time. We will monitor medications and make changes as indicated. Likely length of stay is 3-6 days. Coding Level of Care Code Acute Code for g Fwd Diagnoses Homicidal ideation R45.850 Schizoaffective disorder F25.9 Methamphetamine use disorder, severe F15.20 Psychosis F29
[2023-03-24 14:00] VITALS: BP 90/57; PULSE 90; RESP 14; TEMP 36.5; O2SAT 99
[2023-03-24] MEDS: trazodone 50 mg Tablet PO (19:20)
[2023-03-24] MEDS: prazosin 1 mg Capsule PO (19:20)
[2023-03-24] MEDS: mirtazapine 15 mg Tablet 30 MG PO (19:21)
[2023-03-24 19:26] VITALS: BP 113/78; PULSE 85; RESP 18; TEMP 36.4; O2SAT 99
[2023-03-25 06:00] VITALS: BP 107/54; PULSE 82; RESP 16; O2SAT 95
[2023-03-25] MEDS: nicotine 4 mg lozenge MUCOUS MEM ×5 (07:04→19:52)
[2023-03-25] MEDS: fluoxetine 20 mg Capsule 40 MG PO (07:43)
[2023-03-25] MEDS: NON-FORMULARY MEDICATION (Cariprazine [Vraylar] 3 mg capsule) 3 EACH PO (07:44)
[2023-03-25 14:00] VITALS: BP 129/81; PULSE 97; RESP 16; TEMP 36.6; O2SAT 97
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
[2023-03-25 19:46] VITALS: BP 108/69; PULSE 93; RESP 16; TEMP 36.9; O2SAT 96
[2023-03-25] MEDS: trazodone 50 mg Tablet PO (19:51)
[2023-03-25] MEDS: prazosin 1 mg Capsule PO (19:51)
[2023-03-25] MEDS: mirtazapine 15 mg Tablet 30 MG PO (19:51)
[2023-03-25] MEDS: buprenorphine-naloxone 4-1 mg Film 2 EACH SUBLINGUAL (19:52)
[2023-03-26 06:00] VITALS: BP 109/72; PULSE 82; RESP 16; TEMP 36.7; O2SAT 97
[2023-03-26] MEDS: nicotine 4 mg lozenge MUCOUS MEM ×6 (07:36→19:19)
[2023-03-26] MEDS: fluoxetine 20 mg Capsule 40 MG PO (07:36)
[2023-03-26] MEDS: buprenorphine-naloxone 4-1 mg Film 2 EACH SUBLINGUAL ×2 (07:37→19:19)
[2023-03-26] MEDS: NON-FORMULARY MEDICATION (Cariprazine [Vraylar] 3 mg capsule) 3 EACH PO (07:37)
[2023-03-26 14:00] VITALS: BP 136/84; PULSE 102; RESP 18; TEMP 36.6; O2SAT 98
--- NOTE | 2023-03-26 14:57 | W.PM.NPUPNS ---
Subjective NPU Subjective: 32-year-old male admitted with homicidal ideation with a history of psychosis, polysubstance abuse, depression and ADHD. Patient had reported that he felt better while taking the Suboxone. He reported no side effects from his medication. He had endorsed depression and anxiety. He reported no feelings of hopelessness. He had been less isolative on the milieu. He had reported having problems with being able to manage his anxiety and specific rehabilitation centers. He had reported no psychotic symptoms currently. He had endorsed having been under the influence of methamphetamines before and having been psychotic. He reported no suicidal thoughts currently. Mental Status Exam MSE Comments: This is a well-nourished, well-developed, white male, in hospital scrubs, with limited grooming and eye contact. No abnormal movements, except for mild psychomotor retardation. Cooperative with exam in moderate distress. Speech was normal in rate and volume. Mood described as down. His affect was restricted in range and mood congruent. Thought process was linear and organized. Thought content: patient denied any suicidal or homicidal ideation, there were no delusions reported or noted, patient denied any auditory or visual hallucinations. Attention, concentration, and memory appeared intact, but none were formally tested. Alert and oriented times three. Insight and judgment appear limited versus impaired. Impulse control is limited versus impaired. Vitals/I&O/Wt Last Vital Signs Temp 98 F 03/26/23 14:00 Pulse 102 H 03/26/23 14:00 Resp 18 03/26/23 14:00 BP 136/84 03/26/23 14:00 Pulse Ox 98 03/26/23 14:00 O2 Del Method Room Air 03/26/23 06:00 Data NPU 03/16/23 22:45 03/16/23 22:45 A&P Assessment and plan (1) Psychosis: (2) Homicidal ideation: (3) Schizoaffective disorder: (4) Methamphetamine use disorder, severe: Plan This is a 32-year-old white male with a long history of addiction, legal challenges and reported mental health and addiction issues who presents from [facility] with reports that he had failure to adjust their and is with guardian and they are looking for alternative residential situations. 1.? Further evaluate records to determine medications. 2.? Encourage individual, group, and milieu therapy. 3.? Continue q-15-minute checks for safety. 4.? Recommend sober living treatment at the highest level of care to which the patient is willing to commit. 5. Speak with guardian about medication options as well as the fact that we will not be able to keep him here while they look for alternative residential settings. His level 2 paperwork is complete but there is some question of whether they will need significant time for placement and discussing with the mother and discharged home given that possibility. Will discuss with mother patient's report of them being open to [employer] [facility]. 6. Continue Vraylar 3mg daily. Continue prozac to 40mg daily and remeron at 30mg po qhs. 7. Continue suboxone 8mg/2mg bid. Involuntary Hold Information 96 Hour Hold: 96 Hour Involuntary Admission: No Attestations NPU Medical Necessity Statement*: Inpatient hospitalization is medically necessary and the clinically appropriate intervention, at this time. We will monitor medications and make changes as indicated. Likely length of stay is 2-3 days. Coding Level of Care Code Acute Code for [facility] Fwd Diagnoses Psychosis F29 Homicidal ideation R45.850 Schizoaffective disorder F25.9 Methamphetamine use disorder, severe F15.20
--- NOTE | 2023-03-26 15:54 | PC.NURSE ---
Pt has been very cooperative while on the unit, med compliant and very respectful to staff and other pt's on the unit.
[2023-03-26] MEDS: mirtazapine 15 mg Tablet 30 MG PO (19:19)
[2023-03-26] MEDS: trazodone 50 mg Tablet PO (19:20)
[2023-03-26 19:50] VITALS: BP 117/77; PULSE 79; RESP 18; TEMP 36.6; O2SAT 97
[2023-03-27 06:00] VITALS: BP 124/70; PULSE 61; RESP 15; O2SAT 95
[2023-03-27] MEDS: nicotine 4 mg lozenge MUCOUS MEM ×5 (07:28→19:19)
[2023-03-27] MEDS: NON-FORMULARY MEDICATION (Cariprazine [Vraylar] 3 mg capsule) 3 EACH PO (08:07)
[2023-03-27] MEDS: fluoxetine 20 mg Capsule 40 MG PO (08:07)
[2023-03-27] MEDS: clotrimazole 1% cream 30 gm 1 APPLIC TOPICAL ×2 (08:07→17:24)
[2023-03-27] MEDS: buprenorphine-naloxone 4-1 mg Film 2 EACH SUBLINGUAL ×2 (08:07→17:24)
[2023-03-27 14:00] VITALS: BP 124/71; PULSE 73; RESP 18; TEMP 36.7; O2SAT 98
--- NOTE | 2023-03-27 15:40 | P.NPUPN_ITS ---
Subjective NPU 2 Subjective: 32-year-old male admitted with homicidal ideation with a history of psychosis, polysubstance abuse, depression and ADHD. Patient also endorsed some PTSD related symptoms. He had reported occasional nightmares. He stated that he struggled with discussing time he had spent in [facility]. He had stated that he understands that he cannot return to a homeless intermediate according to this p.o. request. The patient had reported that his mood had been more steady with less opiate cravings since starting the Suboxone. He had stated that he had interviewed to be placed into residential facility and would be agreeable to going there. He reported no side effects from his medication. He had reported some continued nightmares. Mental Status Exam 2 MSE Comments: This is a well-nourished, well-developed, white male, in hospital scrubs, with limited grooming and eye contact. No abnormal movements, except for mild psychomotor retardation. Cooperative with exam in moderate distress. Speech was normal in rate and volume. Mood described as allright His affect was restricted in range and mood congruent. Thought process was linear and organized. Thought content: patient denied any suicidal or homicidal ideation, there were no delusions reported or noted, patient denied any auditory or visual hallucinations. Attention, concentration, and memory appeared intact, but none were formally tested. Alert and oriented times three. Insight and judgment appear limited versus impaired. Impulse control is limited versus impaired. Vitals/I&O/Wt Last Vital Signs Temp 98.1 F 03/27/23 14:00 Pulse 73 03/27/23 14:00 Resp 18 03/27/23 14:00 BP 124/71 03/27/23 14:00 Pulse Ox 98 03/27/23 14:00 O2 Del Method Room Air 03/27/23 06:00 Data NPU 03/16/23 22:45 03/16/23 22:45 A&P Assessment and plan (1) Psychosis: (2) Homicidal ideation: (3) Schizoaffective disorder: (4) Methamphetamine use disorder, severe: Plan This is a 32-year-old white male with a long history of addiction, legal challenges and reported mental health and addiction issues who presents from [facility] with reports that he had failure to adjust their and is with guardian and they are looking for alternative residential situations. 1.? Further evaluate records to determine medications. 2.? Encourage individual, group, and milieu therapy. 3.? Continue q-15-minute checks for safety. 4.? Recommend sober living treatment at the highest level of care to which the patient is willing to commit. 5. Speak with guardian about medication options as well as the fact that we will not be able to keep him here while they look for alternative residential settings. His level 2 paperwork is complete but there is some question of whether they will need significant time for placement and discussing with the mother and discharged home given that possibility. Will discuss with mother patient's report of them being open to [employer] [facility]. 6. Continue Vraylar 3mg daily. Continue prozac to 40mg daily and remeron at 30mg po qhs. 7. Continue suboxone 8mg/2mg bid. Increase prazosin to 2mg at night. Involuntary Hold Information 2 96 Hour Hold: 96 Hour Involuntary Admission: No Attestations NPU 2 Medical Necessity Statement*: Inpatient hospitalization is medically necessary and the clinically appropriate intervention, at this time. We will monitor medications and make changes as indicated. Likely length of stay is 2-3 days. Coding Level of Care Code Acute Code for g Fwd Diagnoses Psychosis F29 Homicidal ideation R45.850 Schizoaffective disorder F25.9 Methamphetamine use disorder, severe F15.20
[2023-03-27] MEDS: prazosin 1 mg Capsule 2 MG PO (19:48)
[2023-03-27] MEDS: mirtazapine 15 mg Tablet 30 MG PO (19:48)
[2023-03-27] MEDS: trazodone 50 mg Tablet PO (19:49)
[2023-03-27 20:46] VITALS: BP 129/71; PULSE 69; RESP 16; TEMP 36.4; O2SAT 97
[2023-03-28 06:00] VITALS: RESP 16
[2023-03-28] MEDS: NON-FORMULARY MEDICATION (Cariprazine [Vraylar] 3 mg capsule) 3 EACH PO (08:12)
[2023-03-28] MEDS: buprenorphine-naloxone 4-1 mg Film 2 EACH SUBLINGUAL ×2 (08:12→17:31)
[2023-03-28] MEDS: fluoxetine 20 mg Capsule 40 MG PO (08:12)
[2023-03-28] MEDS: nicotine 4 mg lozenge MUCOUS MEM ×5 (08:13→18:27)
[2023-03-28] MEDS: clotrimazole 1% cream 30 gm 1 APPLIC TOPICAL ×2 (09:53→17:32)
[2023-03-28 14:00] VITALS: BP 113/75; PULSE 83; RESP 14; TEMP 36.4; O2SAT 95
--- NOTE | 2023-03-28 14:45 | W.PM.NPUPNS ---
Subjective NPU Subjective: 32-year-old male admitted with homicidal ideation with a history of psychosis, polysubstance abuse, depression and ADHD. He reported no nightmares last night. He reported some frustration with not being accepted into a [facility]. He stated that he was willing to consider follow-up with a psychiatrist while returning home to live temporarily until a facility became open for the patient to reside in. He had reported some continued concern about use of illicit drugs. He had reported continued worries and flashbacks regarding his trauma in [facility]. He reported that he frequently avoided discussing matters that it occurred in residential. He reported occasional feelings of hopelessness. He had been less isolative on the milieu. He reported no side effects from the increase in prazosin last night. He reported having no suicidal thoughts at this time. He reported having chronic problems with completing tasks and reports being easily distracted while unable to execute throughout his life. Mental Status Exam MSE Comments: This is a well-nourished, well-developed, white male, in hospital scrubs, with limited grooming and eye contact. No abnormal movements, except for mild psychomotor retardation. Cooperative with exam in moderate distress. Speech was normal in rate and volume. Mood described as okay His affect was restricted in range and mood congruent. Thought process was linear and organized. Thought content: patient denied any suicidal or homicidal ideation, there were no delusions reported or noted, patient denied any auditory or visual hallucinations. Attention, concentration, and memory appeared intact, but none were formally tested. Alert and oriented times three. Insight and judgment. Impulse control is improving. Attention span was poor. Vitals/I&O/Wt Last Vital Signs Temp 97.5 F L 03/27/23 20:46 Pulse 69 03/27/23 20:46 Resp 16 03/28/23 06:00 BP 129/71 03/27/23 20:46 Pulse Ox 97 03/27/23 20:46 O2 Del Method Room Air 03/27/23 20:46 Data NPU 03/16/23 22:45 03/16/23 22:45 A&P Assessment and plan (1) Psychosis: (2) Homicidal ideation: (3) Schizoaffective disorder: (4) Methamphetamine use disorder, severe: Plan This is a 32-year-old white male with a long history of addiction, legal challenges and reported mental health and addiction issues who presents from [facility] with reports that he had failure to adjust their and is with guardian and they are looking for alternative residential situations. 1.? Further evaluate records to determine medications. 2.? Encourage individual, group, and milieu therapy. 3.? Continue q-15-minute checks for safety. 4.? Recommend sober living treatment at the highest level of care to which the patient is willing to commit. 5. Speak with guardian about medication options as well as the fact that we will not be able to keep him here while they look for alternative residential settings. His level 2 paperwork is complete but there is some question of whether they will need significant time for placement and discussing with the mother and discharged home given that possibility. Will discuss with mother patient's report of them being open to [employer] [facility]. 6. Continue Vraylar 3mg daily. Continue prozac to 40mg daily and remeron at 30mg po qhs. 7. Continue suboxone 8mg/2mg bid. Continue prazosin at 2mg at night. Involuntary Hold Information 96 Hour Hold: 96 Hour Involuntary Admission: No Attestations NPU Medical Necessity Statement*: Inpatient hospitalization is medically necessary and the clinically appropriate intervention, at this time. We will monitor medications and make changes as indicated. The patient's likely length of stay is 2-3 days. Coding Level of Care Code Acute Code for [facility] Fwd Diagnoses Psychosis F29 Homicidal ideation R45.850 Schizoaffective disorder F25.9 Methamphetamine use disorder, severe F15.20
[2023-03-28] MEDS: mirtazapine 15 mg Tablet 30 MG PO (19:51)
[2023-03-28] MEDS: trazodone 50 mg Tablet PO (19:51)
[2023-03-28] MEDS: prazosin 1 mg Capsule 2 MG PO (19:51)
[2023-03-28 19:54] VITALS: BP 101/48; PULSE 80; RESP 15; TEMP 36.8; O2SAT 95
--- NOTE | 2023-03-29 06:37 | PC.NURSE ---
pt resp documented.
[2023-03-29] MEDS: NON-FORMULARY MEDICATION (Cariprazine [Vraylar] 3 mg capsule) 3 EACH PO (08:24)
[2023-03-29] MEDS: buprenorphine-naloxone 4-1 mg Film 2 EACH SUBLINGUAL (08:24)
[2023-03-29] MEDS: clotrimazole 1% cream 30 gm 1 APPLIC TOPICAL (08:24)
[2023-03-29] MEDS: fluoxetine 20 mg Capsule 40 MG PO (08:24)
[2023-03-29] MEDS: nicotine 4 mg lozenge MUCOUS MEM ×2 (09:28→11:26)
--- NOTE | 2023-03-29 11:55 | W.PM.NPUDCS ---
Diagnoses at Discharge Discharge Diagnosis (1) Psychosis: Status: Acute (2) Homicidal ideation: Status: Acute (3) Schizoaffective disorder: Status: Acute (4) Methamphetamine use disorder, severe: Status: Acute Reason for Visit Reason for Visit: MHE Brief History: History of Present Illness Neto Simpson is a 32 year old male who presented to the emergency department with the following report: Chief Complaint: Psychiatric Symptoms Stated Complaint: MHE Time Seen by Provider: 03/16/23 21:23 History of Present Illness: 32-year-old male patient currently an inpatient at a local rehab facility. He presents stating that he became homicidal today after having hallucinations. These hallucinations are auditory hallucinations, and the voices were telling him to hurt people. He has had these before. He has been in rehab for 1 week, and in a psychiatric inpatient facility prior to that. He has no other health problems he says. The patient was admitted to the neuropsychiatric unit for definitive treatment of those issues. The patient presents today endorsing that he is taking Vraylar and Prozac and would like to start Klonopin again. He reports that he was in drug rehabilitation because he didn?t have a place to go, but that he was ?clean from everything.? The patient reports that he is trying to get his ADHD treated. The patient endorses that he was at a rehab as he was sent there from [facility] in [place]. He reports that when he gets around people, he gets really anxious and starts hearing stuff, and has panic attacks, and he was ?sent away? from that facility. He is looking at getting into a care home house, but currently has nowhere to live. He reports that he is now on disability. He reports that rehab was more like a nursing home. He reports that he won?t actually be homeless or on the streets, referring to his mom, who is his guardian helping with that. The patient reports that he has had four psychiatric hospitalizations since January. He reports that, in his life, he has had over a dozen psychiatric hospitalizations. He reports that he was getting outpatient services at [facility] in [place]. He reports that his stepdad kicked him out of the house because he was doing some dumb stuff, and ever since then he has been in and out of hospitals and trying to find a place. He reports that he has an assault charge from a alf on his record and no facilities want to take him.? He reports that there is care home house in [place] they are looking into. He endorses that he had some services in [place] for ADHD. He reports that he tested positive for weed so they had to wait on that treatment, and his stepdad kicked him out the same day. He reports that the provider was trying to put him on Vyvanse. He reports that he has post-traumatic stress disorder symptoms which lead to him wanting to get violent and he feels trapped and like he needs to run, like he is in flight or fight mode, survival mode. He reports that he wants Vyvanse and Clonazepam, as they ?level me out and help me focus.? He reports that the Prozac helps with his depression. He reports that he is also on Suboxone which helps with the cravings. The patient reports that he smokes about a pack of cigarettes a day. He denies alcohol use. He reports that he ?dabbles? in marijuana. He denies cocaine. He reports that he did a little bit of methamphetamine about two months ago when he ?slipped.? He endorses that he overdosed on fentanyl last year. The patient reports that he just completed rehab two weeks ago. He reports that he was on 8 mg of the Suboxone two weeks ago, and he was going to [facility] in [place], and they sent him with a five days' supply, and then he couldn?t find a place to get refills. He reports that he went to [facility] and was on Suboxone there, and he did not get any supply when he left, and he was wondering if the Suboxone could be ?jumped up? to where he used to be at the 8 mg. The patient endorses DUI at age 20. He reports that he had one possession charge at 24 years old and went to nursing home. The patient reports that he gets panic attacks that last all day, and that goes into a manic episode, and then he starts to ?trip? on if people are actually saying shit to him or implying things, having paranoia, and he wants to fight and gets violent. He reports that he started hearing voices about ten years ago. He did bath salts, when he was 22 years old. He reports that he did them twice and went into psychosis for a year. He reports that his aunt has schizophrenia. He reports that now just the anxiety ramps up the voices. He reports that Vraylar kind of helps but it doesn?t, that is why he takes the Klonopin to calm down. He reports that he does not have depression anymore and thinks the Prozac has helped. He reports that he was diagnosed with major depressive disorder at [facility], recently, but that he does not feel depressed all the time. He endorses low mood, and previous suicidal thoughts but not currently. He reports that the paranoia is prevalent now. The patient endorses nightmares and flashbacks from time in nursing home. He reports that he has been to [facility] three to four different times, longest stint was a year to a year and a half. He has also done county time. He reports that the last time he got out was in December, and that pretty much did him in and he can?t deal with society. PSYCHIATRIC HISTORY: As above. SUBSTANCE ABUSE HISTORY: As above.? FAMILY HISTORY: The patient endorses mental health issues on both sides of the family. He endorses addiction issues on dad?s side of the family. He denies suicide attempts or completions in his family. DEVELOPMENTAL HISTORY: The patient denies any issues with his mother?s or delivery of him. The patient reports learning to walk and talk and meeting developmental milestones on time. The patient denies speech therapy, learning support, emotional support, but maybe special education classes. PSYCHOSOCIAL HISTORY: The patient reports that his mother and father were together at his for about six years. He reports that he has a younger sister and brother from that union. He reports that he has a couple half-sisters through his dad. He describes his childhood as pretty good. He reports that at 15 he had a burglary charge. He endorses that he was in placement for four months. He denies emotional, physical, or sexual abuse. He endorses trauma from being in nursing home and from time on the streets. He went to the eleventh grade in high school and did not graduate but got his GED. He denies additional training. He endorses being heterosexual, with no long-term relationships. He has not been or had children. Denies service or a mosque belief system. He reports that his longest job was three months. He endorses that he is currently homeless. He reports that his mom is his guardian and is working with social work to find him a place. LEGAL HISTORY: The patient reports he has been to senior living ten times, the longest time being a year and a half. MEDICAL HISTORY: The patient denies any known allergies to medications. The patient endorses Hepatitis C, that was in remission, and he is unsure of that status now. Hospital Course Hospital Course During the hospitalization, the patient had routine laboratory studies which were within normal limits except for a few outliers.? Additionally, there was a general medical evaluation which was also within normal limits and revealed no new acute processes.? At the time of discharge, lethality was denied and psychosis was resolving.? Mood and anxiety were well managed.? The patient endorsed a plan to avoid all drugs of abuse and follow up with the aftercare recommendations of the treatment team.? The patient was evaluated and deemed to be absent credible lethality and had achieved the maximum benefit from an inpatient hospitalization, and so was discharged.? The patient is scheduled to go to a intermediate facility in approximately one week and was agreeable to returning home to his mother and remaining on this medication until a bed at the institution became available. Patient was started on Concerta at 27mg to target chronic adhd. Involuntary Hold Information 96 Hour Hold: 96 Hour Involuntary Admission: No Mental Status Exam MSE Comments: This is a well-nourished, well-developed, white male, in hospital scrubs, with limited grooming and eye contact. No abnormal movements, except for mild psychomotor retardation. Cooperative with exam in moderate distress. Speech was normal in rate and volume. Mood described as good. His affect was less restricted on discharge today. Thought process was linear and organized. Thought content: patient denied any suicidal or homicidal ideation, there were no delusions reported or noted, patient denied any auditory or visual hallucinations. Attention, concentration, and memory appeared intact, but none were formally tested. He was alert and oriented x3. Insight and judgment were improved. Impulse control is improving. Attention span was poor. Discharge Data Studies Completed and Pending: Laboratory Results WBC 9.27 10^3/uL (3.2 9-11.43) 03/16/23 22:45 RBC 5.24 10^6/uL (3.8 5-5.65) 03/16/23 22:45 Hgb 14.70 g/dL (11.27 -16.99) 03/16/23 22:45 Hct 45.5 % (37-53) 03/16/23 22:45 MCV 86.8 fl (82-101) 03/16/23 22:45 MCH 28.1 pg (27-33) 03/16/23 22:45 MCHC 32.3 g/dL (30-55) 03/16/23 22:45 RDW 11.9 % (12.1-15.1 ) L 03/16/23 22:45 Plt Count 377 10^3/cmm (157 -399) 03/16/23 22:45 MPV 9.2 fL (7.4-10.4) 03/16/23 22:45 Neut % (Auto) 71.7 % 03/16/23 22:45 Lymph % (Auto) 19.5 % 03/16/23 22:45 [place] % (Auto) 5.4 % 03/16/23 22:45 Eos % (Auto) 2.7 % 03/16/23 22:45 Baso % (Auto) 0.5 % 03/16/23 22:45 Neut # (Auto) 6.64 10^3/uL (1.8 -7.7) 03/16/23 22:45 Lymph # (Auto) 1.8 10^3/uL (0.8- 4.8) 03/16/23 22:45 [place] # (Auto) 0.5 10^3/uL (0.2- 0.9) 03/16/23 22:45 Eos # (Auto) 0.3 10^3/uL (0.0- 0.8) 03/16/23 22:45 Baso # (Auto) 0.1 10^3/uL (0.0- 0.1) 03/16/23 22:45 Nucleated RBC % (a uto) 0 % 03/16/23 22:45 Nucleated RBCs # 0.0 /100WBC 03/16/23 22:45 Sodium 136 mmol/L (136-1 45) 03/16/23 22:45 Potassium 4.1 mmol/L (3.5-5 .1) 03/16/23 22:45 Chloride 98 mmol/L (98-107 ) 03/16/23 22:45 Carbon Dioxide 29 mmol/L (22-29) 03/16/23 22:45 Anion Gap 13.1 (5-19) 03/16/23 22:45 BUN 9 mg/dL (6-20) 03/16/23 22:45 Creatinine 0.9 mg/dL (0.7-1. 2) 03/16/23 22:45 GFR Calculation 97.2 mL/min (90-1 30) 03/16/23 22:45 Glucose 90 mg/dL (65-115) 03/16/23 22:45 Calculated Osmolal ity 280 mOsm/kg (285- 295) L 03/16/23 22:45 Calcium 9.8 mg/dL (8.5-10 .5) 03/16/23 22:45 Total Bilirubin 0.2 mg/dL (0.15-1 .2) 03/16/23 22:45 AST 18 U/L (0-40) 03/16/23 22:45 ALT 21 U/L (0-41) 03/16/23 22:45 Alkaline Phosphata se 82 U/L (40-130) 03/16/23 22:45 Total Protein 7.6 g/dL (6.6-8.7 ) 03/16/23 22:45 Albumin 4.7 g/dL (3.5-5.2 ) 03/16/23 22:45 Globulin 2.9 g/dL (1.3-4.6 ) 03/16/23 22:45 Urine Color Yellow (Yellow) 03/16/23 21:38 Urine Appearance Clear (CLEAR) 03/16/23 21:38 Urine pH 7 (5-7) 03/16/23 21:38 Ur Specific Gravit y 1.010 (1.005-1.0 30) 03/16/23 21:38 Urine Protein Neg (Negative) 03/16/23 21:38 Urine Glucose (UA) Norm (Normal) 03/16/23 21:38 Urine Ketones Negative (Negati ve) 03/16/23 21:38 Urine Blood Neg (Negative) 03/16/23 21:38 Urine Nitrate Negative (Negati ve) 03/16/23 21:38 Urine Bilirubin Neg (Negative) 03/16/23 21:38 Urine Urobilinogen Neg mg/dL (Negati ve) 03/16/23 21:38 Ur Leukocyte Sharon ase Negative (Negati ve) 03/16/23 21:38 Salicylates < 0.3 mg/dL (3-10 ) L 03/16/23 22:45 Urine Opiates Scre en Negative ng/mL (N egative) 03/16/23 21:38 Acetaminophen < 5.0 ug/mL (10-3 0) L 03/16/23 22:45 Ur Barbiturates Sc reen Negative ng/mL (N egative) 03/16/23 21:38 Ur Phencyclidine S crn Negative ng/mL (N egative) 03/16/23 21:38 Ur Amphetamines Sc reen Negative ng/mL (N egative) 03/16/23 21:38 U Benzodiazepines Scrn Positive ng/mL (N egative) H 03/16/23 21:38 Urine Cocaine Scre en Negative ng/mL (N egative) 03/16/23 21:38 U Marijuana (THC) Screen Negative ng/mL (N egative) 03/16/23 21:38 Ethyl Alcohol < 10 mg/dL (0-10) 03/16/23 22:45 Vitals: Last Vital Signs Temp 98.2 F 03/28/23 19:54 Pulse 80 03/28/23 19:54 Resp 15 03/28/23 19:54 BP 101/48 03/28/23 19:54 Pulse Ox 95 03/28/23 19:54 O2 Del Method Room Air 03/28/23 19:54 Discharge Plan Discharge Patient Disposition: Home Condition: Stable Prescriptions: New mirtazapine 30 mg tablet 30 mg PO .qhs 30 Days Qty: 30 1RF prazosin 1 mg Capsule 2 mg PO 2100 30 Days Qty: 60 1RF fluoxetine 20 mg Capsule 40 mg PO DAILY 30 Days Qty: 60 1RF Concerta 27 mg tablet extended release 24hr 27 mg PO DAILY Qty: 30 0RF Continued Vraylar 3 mg capsule 3 mg PO DAILY Qty: 30 1RF Discontinued chlorpromazine 50 mg tablet 50 mg PO BEDTIME mirtazapine 15 mg tablet 15 mg PO BEDTIME fluoxetine 60 mg tablet 60 mg PO DAILY prazosin 1 mg Capsule 1 mg PO QPM Discharge Orders: Discharge Order (Routine); Ordered 03/29/23 Ordered By: Joon Paula Referrals: [facility] [Other] - 04/02/23 12:00 pm Discharge Diet: Usual diet Discharge Activity: Resume usual activity Patient Instructions: Prazosin (By mouth), Fluoxetine (By mouth), Methylphenidate, Regular and Slow Release (By mouth), Mirtazapine (By mouth), Cariprazine (By mouth), Schizoaffective Disorder (DC), Opioid Safety Discharge Attestations NPU Time Spent in Discharge Care*: less than 30 min Specific Discharge Activities: Specific discharge activities: educating patient, documenting/other paperwork and evaluating patient/reviewing data Coding Level of Care Code Acute Code for g Fwd Diagnoses Psychosis F29 Homicidal ideation R45.850 Schizoaffective disorder F25.9 Methamphetamine use disorder, severe F15.20
[2023-03-29 12:11] VITALS: BP 101/48; PULSE 80; RESP 15; TEMP 36.8; O2SAT 95
== END 2023-03-29 12:53 | disposition home or self-care (01) | DRG 885 ==
LOC: ER 22:06 → NP 22:13
PROVIDERS: Admitting Provider Psychiatry & Neurology Psychiatry; Emergency Provider Emergency Medicine; Visit Provider Psychiatry & Neurology Psychiatry
DX: F29 Unspecified psychosis not due to a substance or known physiological condition (principal); Z59.02 Unsheltered homelessness; R45.850 Homicidal ideations; Z86.19 Personal history of other infectious and parasitic diseases; Z81.8 Family history of other mental and behavioral disorders; Z81.3 Family history of other psychoactive substance abuse and dependence; F25.9 Schizoaffective disorder, unspecified; F15.10 Other stimulant abuse, uncomplicated; F90.0 Attention-deficit hyperactivity disorder, predominantly inattentive type; F43.10 Post-traumatic stress disorder, unspecified
CPT/HCPCS: 36415; 80053; 80306; 80307; 81003; 85025; 97150; 97165; 99285; J0573

== ENCOUNTER 2024-07-15 15:06 | Inpatient (IN) | payer MEDICAID, SELFPAY ==
[2024-07-15] VITALS (26 sets, daily range): BP systolic 103–140; BP diastolic 62–110; PULSE 95–124; RESP 11–30; TEMP 36.9; O2SAT 86–98; BMI 28.5
--- NOTE | 2024-07-15 15:10 | XR_ITS ---
WS: [id number] Exam: XR chest 1V portable [id number] Date/Time of Exam: 07/15/2024 3:11 PM Reason For Exam: od No prior studies. Lungs are clear and fully inflated. Normal cardiomediastinal silhouette. Unremarkable bony structures. XR/XR chest 1V portable [id number] IMPRESSION: 1. Negative chest.
--- NOTE | 2024-07-15 15:10 | ECG_ITS ---
[facility] Date: 2024-07-15 Pat Name: Neto Simpson Department: Room: Gender: Male Press Reader: : 1990 Requested By: Yesica Holley Order Number: [id number] Julia MD: Petra Appiah M.D. Measurements Intervals [place] Rate: 121 P: 68 UT: 157 QRS: 52 QRSD: 105 T: 61 QT: 404 QTc: 574 Interpretive Statements SINUS TACHYCARDIA NONSPECIFIC T-WAVE ABNORMALITY ABNORMAL RHYTHM ECG No previous ECG available for comparison Electronically Signed On 07-15-2024 15:56:47 CDT by Petra Appiah M.D. [id number]
[2024-07-15 15:16] LABS: Basophils # 0.1 10^3/uL (0.0-0.1); Basophils % 0.5 %; Eosinophils # 0.1 10^3/uL (0.0-0.8); Eosinophils % 0.5 %; Lymphocytes # 2.3 10^3/uL (0.8-4.8); Lymphocytes % 12.8 %; Mean Corpuscular HGB Conc 31.8 g/dL (30-55); Mean Corpuscular Hemoglobin 27.8 pg (27-33); Mean Corpuscular Volume 87.2 fl (82-101); Mean Platelet Volume 9.3 fL (7.4-10.4); Monocytes # 0.5 10^3/uL (0.2-0.9); Monocytes % 2.8 %; Neutrophils # 14.65 10^3/uL (1.8-7.7); Neutrophils % 82.9 %; Nucleated Red Blood Cells % 0 %; Platelet Count 419 10^3/cmm (157-399); Red Blood Count 5.62 10^6/uL (3.85-5.65); Red Cell Distribution Width 11.8 % (12.1-15.1); White Blood Count 17.67 10^3/uL (3.29-11.43)
--- NOTE | 2024-07-15 15:20 | W.ED.OVERDOS ---
HPI - Overdose General: Chief Complaint: Overdose Stated Complaint: od Time Seen by Provider: 07/15/24 15:07 Source: patient and EMS Mode of arrival: EMS Limitations: no limitations History of Present Illness: 33-year-old male is here after an overdose. Patient had been at [facility] and ran from there per staff patient was placed on 96-hour hold through [facility] for homicidal statements. Patient states that he went and found methadone and used methadone patient was found unresponsive he has been given 8 mg of Narcan he is now awake and alert. EMS states they arrived he was unresponsive with shallow respirations. Patient had made suicidal statements at [facility] and to his mother Related Data Home Medications ?Medication ?Instructions ?Recorded ?Confirmed fluoxetine 40 mg capsule 40 mg PO DAILY 07/15/24 07/15/24 Allergies Allergy/AdvReac Type Severity Reaction Status Date / Time haloperidol (From Haldol) Allergy ALGY-Anaphy Verified 03/17/23 18:02 laxis Review of Systems Const: Denies: fever(s), chills, body aches or change in appetite ENMT: Denies: throat pain or dental pain Card: Denies: chest pain Resp: Denies: dyspnea GI: Denies: abdominal pain, nausea, vomiting or diarrhea Musc: Denies: neck pain or back pain Skin/Breast: Denies: rash Neuro: Denies: headache(s) Psych: Reports: suicidal ideation [facility] ED PFSH: Medical History (Updated 07/15/24 @ 16:51 by Justyn Ontiveros MD) Hypertension Polysubstance abuse Surgical History (Updated 07/15/24 @ 16:49 by Justyn Ontiveros MD) No significant past surgical history Social History (Updated 07/15/24 @ 16:49 by uJstyn Ontiveros MD) Alcohol intake: current Substance/Drug Use: current Physical Exam Const: COMMON NORMALS: patient oriented x3 HENMT: COMMON NORMALS: normocephalic and atraumatic HEAD & SCALP: normocephalic and atraumatic Eye: COMMON NORMALS: Equal, round and reactive pupils present and EOMs intact bilaterally PUPIL: Yes Equal, round and reactive pupils present Neck/C-Spine: COMMON NORMALS: full ROM and supple Chest: COMMONS NORMALS: normal inspection of the chest Resp: COMMON NORMALS: normal respiratory effort, No retractions, No use of accessory muscles and clear to auscultation bilaterally AUSCULTATION: clear to auscultation bilaterally Cardio: COMMON NORMALS: regular rhythm and No murmurs present (Cardio) RATE: tachycardic RHYTHM: regular rhythm GI: COMMON NORMALS: Normal to inspection, nondistended, normoactive bowel sounds present, Soft to palpation, non-tender and no masses PALPATION: Yes Soft to palpation Extremity: COMMON NORMALS: normal to inspection and full ROM Neuro: COMMON NORMALS: patient oriented x3, moves all extremities and no focal motor deficits Psych: COMMON NORMALS: mental status grossly normal, Normal thought process present and cooperative THOUGHT PROCESS: Normal thought process present THOUGHT CONTENT: Yes Suicidality present Skin: COMMON NORMALS: no rashes or lesions noted and no wounds GENERAL SKIN EXAM: no rashes or lesions noted Course Vital Signs: Vital signs: Vital Signs Temperature 98.5 F 07/15/24 15:14 Pulse Rate 124 H 07/15/24 16:00 Respiratory Rate 17 07/15/24 16:00 Blood Pressure 103/74 07/15/24 16:00 Pulse Oximetry 97 07/15/24 16:00 Oxygen Delivery Me thod Room Air 07/15/24 15:14 MDM - Overdose Medical Decision Making Patient presents here after a methadone overdose he is also suicidal he is given Narcan and route had some somnolence here did redosed the Narcan we will start him on Narcan drip spoke to hospitalist will admit to the ICU at this time on a 96-hour hold I will also consult with the psychiatrist. Medical Records I reviewed the patient's medical records. Lab Data I reviewed the patient's lab results. 07/15/24 14:51 07/15/24 14:51 Radiology Impressions Chest X-Ray 07/15/24 15:10 IMPRESSION: 1. Negative chest. Laboratory Results WBC 17.67 10^3/uL (3.29-11.43) H 07/15/24 14:51 RBC 5.62 10^6/uL (3.85-5.65) 07/15/24 14:51 Hgb 15.60 g/dL (11.27-16.99) 07/15/24 14:51 Hct 49.0 % (37-53) 07/15/24 14:51 MCV 87.2 fl (82-101) 07/15/24 14:51 MCH 27.8 pg (27-33) 07/15/24 14:51 MCHC 31.8 g/dL (30-55) 07/15/24 14:51 RDW 11.8 % (12.1-15.1) L 07/15/24 14:51 Plt Count 419 10^3/cmm (157-399) H 07/15/24 14:51 MPV 9.3 fL (7.4-10.4) 07/15/24 14:51 Neut % (Auto) 82.9 % 07/15/24 14:51 Lymph % (Auto) 12.8 % 07/15/24 14:51 [place] % (Auto) 2.8 % 07/15/24 14:51 Eos % (Auto) 0.5 % 07/15/24 14:51 Baso % (Auto) 0.5 % 07/15/24 14:51 Neut # (Auto) 14.65 10^3/uL (1.8-7.7) H 07/15/24 14:51 Lymph # (Auto) 2.3 10^3/uL (0.8-4.8) 07/15/24 14:51 [place] # (Auto) 0.5 10^3/uL (0.2-0.9) 07/15/24 14:51 Eos # (Auto) 0.1 10^3/uL (0.0-0.8) 07/15/24 14:51 Baso # (Auto) 0.1 10^3/uL (0.0-0.1) 07/15/24 14:51 Nucleated RBC % (auto) 0 % 07/15/24 14:51 Nucleated RBCs # 0.0 /100WBC 07/15/24 14:51 Sodium 141 mmol/L (136-145) 07/15/24 14:51 Potassium 3.3 mmol/L (3.5-5.1) L 07/15/24 14:51 Chloride 101 mmol/L (98-107) 07/15/24 14:51 Carbon Dioxide 23 mmol/L (22-29) 07/15/24 14:51 Anion Gap 20.3 (5-19) H 07/15/24 14:51 BUN 17 mg/dL (6-20) 07/15/24 14:51 Creatinine 1.4 mg/dL (0.7-1.2) H 07/15/24 14:51 GFR Calculation 58.0 mL/min (90-130) L 07/15/24 14:51 Glucose 162 mg/dL (65-115) H 07/15/24 14:51 Calculated Osmolality 297 mOsm/kg (285-295) H 07/15/24 14:51 Calcium 9.1 mg/dL (8.5-10.5) 07/15/24 14:51 Total Bilirubin 0.3 mg/dL (0.15-1.2) 07/15/24 14:51 AST 22 U/L (0-40) 07/15/24 14:51 ALT 19 U/L (0-41) 07/15/24 14:51 Alkaline Phosphatase 96 U/L (40-130) 07/15/24 14:51 Total Protein 8.2 g/dL (6.6-8.7) 07/15/24 14:51 Albumin 4.9 g/dL (3.5-5.2) 07/15/24 14:51 Globulin 3.3 g/dL (1.3-4.6) 07/15/24 14:51 Salicylates < 0.3 mg/dL (3-10) L 07/15/24 14:51 Acetaminophen < 5.0 ug/mL (10-30) L 07/15/24 14:51 Ethyl Alcohol 159 mg/dL (0-10) H 07/15/24 14:51 All radiology interpretation(s) finalized by discharge EKG Data EKG 1: I personally reviewed and interpreted this EKG as follows: EKG interpretation date: 07/15/24 EKG interpretation time: 15:10 Interpretation: sinus tach hr [address] elevation qrs 105 qtc 475 Critical Care Time Critical Care Time: Critical Care Time: Yes Total Critical Care Time: 40 Attestation: The high probability of a clinically significant, sudden or life threatening deterioration of the patient's overdose system(s) required my full and direct attention, intervention and personal management. The critical care time is as shown. This time is in addition to time spent performing any reported procedures but includes the following: [x] Data and vital sign review and interpretation [x] Patient assessment, examination and intervention [x] Documentation [x] Medication orders and management Discharge Plan Discharge Patient Disposition: Admitted As Inpatient Clinical Impression: Drug overdose, Suicidal ideation Condition: Stable Coding Level of Care Code ED [employer] for Roxy Ruiz
[2024-07-15 15:33] LABS: Alanine Aminotransferase 19 U/L (0-41); Albumin Level 4.9 g/dL (3.5-5.2); Alcohol Level 159 mg/dL (0-10); Alkaline Phosphatase 96 U/L (40-130); Anion Gap 20.3 (5-19); Aspartate Amino Transferase 22 U/L (0-40); Blood Urea Nitrogen 17 mg/dL (6-20); Calcium 9.1 mg/dL (8.5-10.5); Carbon Dioxide 23 mmol/L (22-29); Chloride 101 mmol/L (98-107); Globulin 3.3 g/dL (1.3-4.6); Glucose 162 mg/dL (65-115); Osmolality Calculated 297 mOsm/kg (285-295); Potassium 3.3 mmol/L (3.5-5.1); Sodium 141 mmol/L (136-145); Total Bilirubin 0.3 mg/dL (0.15-1.2); Total Protein 8.2 g/dL (6.6-8.7)
[2024-07-15 15:34] LABS: Acetaminophen < 5.0 ug/mL (10-30); Salicylate < 0.3 mg/dL (3-10)
--- NOTE | 2024-07-15 15:35 | PC.NURSE ---
96 hour hold rights read and reviewed with patient. Patient does appear to under the influence at this. Patient verbalized that her understood rights. Copy of rights was given to patient. Reshma GENTILE charge was present during reading of rights. Shortly after [facility] deputy arrived to ER and served patient with 96 hour hold.
--- NOTE | 2024-07-15 15:47 | PC.PHAR ---
called [facility] at [phone] where he left from to get med list since patient isnt in right mind got sent to [facility], left a detailed message for them to call me back
--- NOTE | 2024-07-15 15:55 | PC.NURSE ---
Spoke with Maisha RN at Poison control. Her advice was the patient needed to be closely watched for 24 hours since we are not clearly sure what might have been in the street methadone the patient took and the 8 mg of narcan that was administered to the patient by the police and EMS. Patient has been placed on a 96 [address] hold by the court in [facility] and he will have to be placed in ICU with a sitter to be observed prior to going to the psychiatric unit.
--- NOTE | 2024-07-15 15:57 | P.HP_ITS ---
Providers/Chief Complaint 2 Chief Complaint: od History of Present Illness Neto Simpson is a 33 year old male with a past medical history significant for depression, hypertension, polysubstance abuse, and multiple psychiatric illnesses who presents emergency department with intentional drug overdose with methadone. Onset was today prior to arrival. He reportedly ran away from [facility] after making homicidal and suicidal statements. He was reportedly found unresponsive and treated with Narcan with improvement. On emergency department, he currently denies any symptoms. He is lethargic but arousable. Denies fevers, chills, nausea or headache. Denies alleviating or aggravating factors. ER physician reports 96 hours hold is been initiated. Dr. Holley agrees to consult psychiatry. Review of Systems 2 Narrative: A complete review of systems was obtained and is negative except as stated in HPI. Medications/Allergies Home Medications ?Medication ?Instructions ?Recorded ?Confirmed ?Last Taken ?Type fluoxetine 40 mg capsule 40 mg PO DAILY 07/15/24 0412/3107/15/24 History Allergies Allergy/AdvReac Type Severity Reaction Status Date / Time haloperidol (From Haldol) Allergy ALGY-Anaphy Verified 03/17/23 18:02 laxis PFSH Acute 2 PFSH: Medical History (Updated 07/15/24 @ 16:51 by Justyn Ontiveros MD) Hypertension Polysubstance abuse Surgical History (Updated 07/15/24 @ 16:49 by Justyn Ontiveros MD) No significant past surgical history Social History (Updated 07/15/24 @ 16:49 by Justyn Ontiveros MD) Alcohol intake: current Substance/Drug Use: current Vitals/I&O/Wt Last Vital Signs Temp 98.5 F 07/15/24 15:14 Pulse 117 H 07/15/24 15:14 Resp 30 H 07/15/24 15:14 BP 134/78 07/15/24 15:14 Pulse Ox 95 07/15/24 15:14 O2 Del Method Room Air 07/15/24 15:14 Physical Exam 2 Narrative: General: Patient is slightly antalgic. Arouses. Head: Normocephalic. Atraumatic. EOM intact. Neck: No JVD. Cardiovascular: Tachycardic with regular rhythm. No gallops. No murmurs. No peripheral edema. Lungs: Breath sounds are diminished in bases, no use of accessory muscles, no crackles or wheezes. On room air. Skin: No jaundice. No rashes. Abdomen: Normal bowel sounds, abdomen soft and nontender. Extremities: No cyanosis or clubbing. Musculoskeletal: No swollen or erythematous joints. Neurological: Moves all 4 extremities. No myoclonus. Data 07/15/24 14:51 07/15/24 14:51 A&P Assessment and plan (1) Opioid overdose: (2) Homicidal ideation: (3) Polysubstance abuse: (4) Suicidal ideation: (5) Drug overdose: (6) Hypertension: (7) Hypokalemia: (8) Leukocytosis: (9) Thrombocytosis: (10) Renal insufficiency: (11) Alcohol intoxication: Plan Intentional drug overdose with opiate methadone - Received Narcan prior to presentation - Narcan is wearing off on evaluation, will start Narcan drip - Continuous cardiopulmonary monitoring - Admit to the intensive care unit Homicidal and suicidal ideation History of multiple psychiatric illnesses - Patient's under 96-hour hold - Psychiatry evaluation Leukocytosis - Suspect stress-induced - Monitor for evidence of infection - Check procalcitonin Hypokalemia - Replace potassium Alcohol intoxication History of alcohol abuse - Start CIWA protocol - Thiamine, folic acid, vitamin Tachycardia - Monitor Renal insufficiency - No recent baseline - IV fluids DVT prophylaxis: Low risk CODE STATUS: Full code PDMP PDMP Reviewed: Not Reviewed Attestations 2 Medical Necessity Statement*: Admit to the intensive care unit with expected hospitalization to cross 2 midnights for alcohol withdrawal treatment, opioid overdose dose, and psychiatric care. Coding Level of Care Code Acute Code for [facility] Fwd Diagnoses Opioid overdose T40.2X1A Homicidal ideation R45.850 Polysubstance abuse F19.10 Suicidal ideation R45.851 Drug overdose T50.901A Hypertension I10 Hypokalemia E87.6 Leukocytosis D72.829 Thrombocytosis D75.839 Renal insufficiency N28.9 Alcohol intoxication F10.929
--- NOTE | 2024-07-15 16:00 | PC.NURSE ---
Patient was placed on 2 liters of oxygen while sleeping, his oxygen saturation continued to drop to 86-87% while sleeping.
--- NOTE | 2024-07-15 16:15 | PC.PHAR ---
turning moni called back and verified meds, she also stated he has a legal guardian names shelli sanchez and her number is [phone] if we need it
[2024-07-15] MEDS: naloxone 2 MG in sodium chloride 0.9% (100 ml) 100 ML 21 MG IV (16:16)
[2024-07-15] MEDS: naloxone 0.4 mg/ml SDV IVP ×2 (16:19→23:39)
[2024-07-15 17:50] LABS: Procalcitonin 0.03 ng/mL (0-0.5)
[2024-07-15] MEDS: potassium chloride ER 20 mEq Tablet 40 MEQ PO (18:08)
[2024-07-15 18:17] LABS: Amphetamines Screen Urine Negative (Negative); Barbiturates Screen Urine Negative (Negative); Benzodiazepines Screen Urine Negative (Negative); Cocaine Screen Urine Negative (Negative); Opiate Screen Urine Negative (Negative); PCP Screen Urine Negative (Negative); THC Screen Urine Negative (Negative)
[2024-07-15] MEDS: CLONazepam 0.5 mg Tablet 1 MG PO (18:22)
[2024-07-15] MEDS: dextrose 5%-ns 0.45% + KCl 40 1,000 ML 75 MEQ IV (18:27)
--- NOTE | 2024-07-15 18:44 | PC.NURSE ---
Assumed care from Lyudmila GENTILE at this time.
--- NOTE | 2024-07-15 19:16 | PC.NURSE ---
Patient was rounded on to check neuro status and IV status. Patient was spontaneously alert to nurse entering into room. IVs patent at this time.
--- NOTE | 2024-07-15 19:54 | PC.NURSE ---
Report was called to Luba GENTILE in ICU. All questions and concerns were addressed at time of report.
[2024-07-15] MEDS: CLONazepam 0.5 mg Tablet PO (21:21)
--- NOTE | 2024-07-15 23:30 | PC.NURSE ---
Pt lethrgic, oxygen saturation 81% on 2 liters nasal cannula, RR 10. Dr. Malin notified, new order for 0.4 mg Narcan IVP Q4H PRN.
[2024-07-16] VITALS (78 sets, daily range): BP systolic 96–152; BP diastolic 57–112; PULSE 41–132; RESP 6–24; TEMP 37.5–38.6; O2SAT 82–100
[2024-07-16] MEDS: LORazepam 2 mg/mL INJ 1 mL IVP ×2 (00:15→04:18)
[2024-07-16] MEDS: naloxone 0.4 mg/ml SDV IVP ×6 (01:42→20:50)
--- NOTE | 2024-07-16 01:42 | PC.NURSE ---
Dr Malin notified again of pt status requiring Narcan. Telephone order per Dr. Malin to change Narcan order to 0.4 mg IVP narcan Q1H prn.
--- NOTE | 2024-07-16 08:45 | PC.NURSE ---
Narcan administration. Since mornnig shift change, patient has been lethargic, but protecting his airway and maintaining an oxygen saturation of about 92% and breathing 10-12 times per minute. Around 8am patient became more lethargic, respiratory rate dropped to approximately 6-8 braths per minute. Oxygen saturations had dropped in to the 80's as well. Nurse administered Narcan. Within a minute of administration patient became awake, alert. Oriented to person, and place but not situation. WHen nurse explains his hospitalization, the patient disputes the events. Doesn't remember making any homicidal or suicidal statementsand says he has taken 80mg of methadone before with no issue. Nurse explained that since it has been so long since he last took it and he likely can't handle as high of a dose since he no longer has the same tolerance. Patient seemed to accept this explanation, at a small amount of breakfast and went back to sleep.
[2024-07-16] MEDS: dextrose 5%-ns 0.45% + KCl 40 1,000 ML 75 MEQ IV (09:32)
[2024-07-16] MEDS: thiamine 100 mg Tablet PO (09:33)
[2024-07-16] MEDS: folic acid 1 mg Tablet PO (09:33)
[2024-07-16] MEDS: acetaminophen 325 mg Tablet 650 MG PO (09:33)
[2024-07-16] MEDS: multivitamin therapeutic Tablet 1 TAB PO (09:33)
--- NOTE | 2024-07-16 10:59 | PC.NURSE ---
Neto Simpson SR ([facility])- [phone]
--- NOTE | 2024-07-16 11:08 | PM.PN ---
Subjective Subjective: Narcan drip discontinued overnight. This morning he has borderline bradycardia pending. Still requiring intermittent Narcan doses. Not medically ready for NPU yet. He is arousable. Discussed plan of care. He denies any new complaints. Medications: Reviewed: Yes Vitals/I&O/Wt Last Vital Signs Temp 101.5 F H 07/16/24 08:45 Pulse 114 H 07/16/24 09:30 Resp 12 07/16/24 09:30 BP 137/84 07/16/24 09:30 Pulse Ox 93 07/16/24 09:30 O2 Del Method Nasal Cannula 07/16/24 08:45 O2 Flow Rate 3 07/16/24 08:45 FiO2 2 07/16/24 06:45 07/15/24 07/16/24 07/16/24 22:59 06:59 14:59 Intake Total 345 / 345 240 / 585 1000 / 1000 Output Total 600 / 600 Balance 345 / 345 240 / 585 400 / 400 Weight last 48 hrs Weight 87.952 kg Weight 87.815 kg Weight 87.815 kg Physical Exam Narrative: General: Patient is slightly lethargic. Head: Normocephalic. Atraumatic. EOM intact. Neck: No JVD. Cardiovascular: RRR. No gallops. No murmurs. No peripheral edema. Lungs: Clear to auscultation, no use of accessory muscles, no crackles or wheezes. Skin: No jaundice. No rashes. Abdomen: Normal bowel sounds, abdomen soft and nontender. Extremities: No cyanosis or clubbing. Musculoskeletal: No swollen or erythematous joints. Neurological: Moves all 4 extremities. No myoclonus. Data 07/15/24 14:51 07/15/24 14:51 A&P Assessment and plan (1) Opioid overdose: (2) Homicidal ideation: (3) Polysubstance abuse: (4) Suicidal ideation: (5) Drug overdose: (6) Hypertension: (7) Hypokalemia: (8) Leukocytosis: (9) Thrombocytosis: (10) Renal insufficiency: (11) Alcohol intoxication: Plan Intentional drug overdose with opiate methadone - Continuous cardiopulmonary monitoring - Continue Narcan treatment Homicidal and suicidal ideation History of multiple psychiatric illnesses - Patient's under 96-hour hold - Psychiatry consulted, appreciate assistance Febrile Leukocytosis - Repeat labs pending - Tylenol PRN for fever Hypokalemia - Repeat labs pending Alcohol intoxication History of alcohol abuse - [facility] protocol - Thiamine, folic acid, vitamin Tachycardia - Monitor Renal insufficiency - Repeat labs pending DVT prophylaxis: Low risk CODE STATUS: Full code PDMP PDMP Reviewed: Not Reviewed Attestations Medical Necessity Statement*: Patient requires ongoing hospitalization for continuous cardiopulmonary monitoring, repeat Narcan doses, and supportive Critical Care Time: The high probability of a clinically significant, sudden or life threatening deterioration of the patient's cardiopulmonary system(s) required my full and direct attention, intervention and personal management. The critical care time is as shown. This time is in addition to time spent performing any reported procedures but includes the following: [x] Data and vital sign review and interpretation [x] Patient assessment, examination and intervention [x] Documentation [x] Medication orders and management Critical Care Time (min): 35 Coding Level of Care Code Acute Code for [facility] Fwd Diagnoses Opioid overdose T40.2X1A Homicidal ideation R45.850 Polysubstance abuse F19.10 Suicidal ideation R45.851 Drug overdose T50.901A Hypertension I10 Hypokalemia E87.6 Leukocytosis D72.829 Thrombocytosis D75.839 Renal insufficiency N28.9 Alcohol intoxication F10.929
[2024-07-16 13:11] LABS: Glucose Point of Care 107 mg/dL (70-110)
--- NOTE | 2024-07-16 13:15 | ECG_ITS ---
[facility]: 2024-07-16 Pat Name: Neto Simpson Department: Room: [facility] Gender: Male [employer]: : 1990 Requested By: Justyn Carmichael Order Number: [id number] Julia MD: Petra Appiah M.D. Measurements Intervals [place] Rate: 109 P: 28 MO: 139 QRS: 35 QRSD: 93 T: 3 QT: 313 QTc: 422 Interpretive Statements SINUS TACHYCARDIA NONSPECIFIC T-WAVE ABNORMALITY ABNORMAL RHYTHM ECG Compared to ECG 07/15/2024 15:10:23 No significant changes Electronically Signed On 07-18-2024 13:28:12 CDT by Petra Appiah M.D. [email or web address]
--- NOTE | 2024-07-16 15:20 | PC.NURSE ---
at 1345, patient required another dose of narcan. With this administration he became agitated upon waking. Is paranoid that the nursing staff is providing him with a faulty phone sine whenever he calls his mom it goes straight to voicemail. Is concerned about going to longterm after he is medically stable. Patient is pacing about the room, asking questions indicating he is suspicious of the staff, is pacing about the room. Agitated but not aggressive with staff. WIth just observation, patient started to calm down and eventually went back to bed.
[2024-07-16] MEDS: CLONazepam 0.5 mg Tablet PO (19:37)
--- NOTE | 2024-07-16 21:40 | PC.NURSE ---
Nicotine Gum Patient requesting to smoke. Education provided on smoking cessation and alternatives while in hospital. Patient requesting nicotine gum. Dr. Malin contacted; order received for nicotine gum.
[2024-07-16] MEDS: nicotine 2 mg Gum 4 MG BUCCAL (21:58)
[2024-07-17] VITALS (39 sets, daily range): BP systolic 91–135; BP diastolic 60–89; PULSE 70–128; RESP 9–22; TEMP 36.6–37.9; O2SAT 86–100; BMI 29.4
[2024-07-17] MEDS: LORazepam 2 mg/mL INJ 1 mL IVP (03:59)
[2024-07-17] MEDS: multivitamin therapeutic Tablet 1 TAB PO (08:00)
[2024-07-17] MEDS: CLONazepam 0.5 mg Tablet PO (08:00)
[2024-07-17] MEDS: folic acid 1 mg Tablet PO (08:00)
[2024-07-17] MEDS: thiamine 100 mg Tablet PO (08:00)
--- NOTE | 2024-07-17 08:10 | PC.NURSE ---
Last night the patient called his mom and got into an argument with her. Became very agitated and the phone had to be taken away since his behaviors continued to escalate while on the phone. Patient asked to use the phone this morning. Nurse explained to the patient that last night he had to have the phone taken away because of his agitated state, and if his behaviors escalated again we would have to take the phone away. Patient agreed to remain calm while on the phone. Phone was provided to the patient and he called his mom. Almost immediately he started raising his voice to her and arguing. Nurse reminded the patient of his need to remain calm, but he ignored the nurse and continued to raise his voice and was becoming increasingly agitated. Nurse then removed phone form room and patient calmed down almost immediately.
--- NOTE | 2024-07-17 08:32 | P.PN_ITS ---
Subjective 2 Subjective: Received Narcan last at 2049 yesterday. Overnight there was concern for probable sleep apnea. He likely benefit from an outpatient sleep study. This morning he is sleeping but arouses to voice. Denies any complaints. Discussed plan of care. Medications: Reviewed: Yes Vitals/I&O/Wt Last Vital Signs Temp 98.8 F 07/17/24 07:45 Pulse 97 07/17/24 07:45 Resp 11 L 07/17/24 07:45 BP 103/79 07/17/24 08:00 Pulse Ox 95 07/17/24 07:45 O2 Del Method Room Air 07/17/24 07:45 O2 Flow Rate 3 07/17/24 04:00 FiO2 2 07/16/24 06:45 07/16/24 07/17/24 07/17/24 22:59 06:59 14:59 Intake Total 710 / 1710 300 / 300 Output Total 575 / 1175 Balance 135 / 535 300 / 300 Weight last 48 hrs Weight 89.403 kg Weight 87.952 kg Weight 87.815 kg Weight 87.815 kg Physical Exam 2 Narrative: General: Patient is sleeping, awakens to voice. Head: Normocephalic. Atraumatic. EOM intact. Neck: No JVD. Cardiovascular: RRR. No gallops. No murmurs. No peripheral edema. Lungs: Clear to auscultation, no use of accessory muscles, no crackles or wheezes. Skin: No jaundice. No rashes. Abdomen: Normal bowel sounds, abdomen soft and nontender. Extremities: No cyanosis or clubbing. Musculoskeletal: No swollen or erythematous joints. Neurological: Moves all 4 extremities. No myoclonus. Data 07/15/24 14:51 07/15/24 14:51 A&P Assessment and plan (1) Opioid overdose: (2) Homicidal ideation: (3) Polysubstance abuse: (4) Suicidal ideation: (5) Drug overdose: (6) Hypertension: (7) Hypokalemia: (8) Leukocytosis: (9) Thrombocytosis: (10) Renal insufficiency: (11) Alcohol intoxication: Plan Intentional drug overdose with opiate methadone - Continuous cardiopulmonary monitoring - Has been about 12 hours since last Narcan dose, continue to monitor closely - Follow-up with psychiatry Homicidal and suicidal ideation History of multiple psychiatric illnesses - Patient's under 96-hour hold - Psychiatry following Febrile Leukocytosis - Fevers improved - Tylenol PRN for fever Hypokalemia - Status post replacement Alcohol intoxication History of alcohol abuse - [facility] protocol - Thiamine, folic acid, vitamin Tachycardia, resolved Renal insufficiency - Status post IV fluids Suspected sleep apnea - Would benefit from outpatient sleep study DVT prophylaxis: Low risk CODE STATUS: Full code PDMP PDMP Reviewed: Not Reviewed Attestations 2 Medical Necessity Statement*: Patient requires ongoing hospitalization for continuous cardiopulmonary monitoring, psychiatric care, and supportive care. Coding Level of Care Code Acute Code for [facility] Fwd Diagnoses Opioid overdose T40.2X1A Homicidal ideation R45.850 Polysubstance abuse F19.10 Suicidal ideation R45.851 Drug overdose T50.901A Hypertension I10 Hypokalemia E87.6 Leukocytosis D72.829 Thrombocytosis D75.839 Renal insufficiency N28.9 Alcohol intoxication F10.929
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
--- NOTE | 2024-07-17 08:48 | PC.NURSE ---
A significant source of anxiety for the patient has been potential warrants/charges. He is afraid that him leaving the treatment facility ([facility]) without authorization is a violation of his parole and he will be arrested upon discharge. Nurse explained that we have no knowledge of pending charges or warrants. Nurse called security to investigate this further. Security came to room and told the patient that they contacted [place] police and there are no active warrants for him at this time. Security emphasized to the patient they they cannot guarantee that there are no warrants as they are working off of current information and things may change. We will keep the patient informed if we get any more information. This seems to have calmed the patient at this time, but he continues to focus on this.
[2024-07-17] MEDS: LORazepam 1 mg Tablet PO ×2 (09:03→10:37)
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
--- NOTE | 2024-07-17 12:29 | PC.NURSE ---
Report given to Britany in NPU. Nurse and security escorted patient to NPU. All belongings brought and given to nurse for inventory.
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
--- NOTE | 2024-07-17 14:48 | PC.NURSE ---
Dr. Chai pichardoed psychiatric medication order set.
[2024-07-17] MEDS: LORazepam 2 mg Tablet PO (15:29)
--- NOTE | 2024-07-17 16:36 | PC.OT ---
OT EVAL ATTEMPTED WITH PT AGITATED. WILL ATTEMPT AGAIN AT LATER TIME.
--- NOTE | 2024-07-17 17:35 | PC.NURSE ---
PT CONTINUES TO COME TO DESK WITH VARIOUS ISSUES AND STATING I'M ALLERGIC TO EVERYTHING SO WHY IS HYDROXYZINE ON MY LIST. PT WAS INFORMED THAT THERE IS NO DOCUMENTATION HE IS ALLERGIC TO THAT MEDICATION, ONLY ALLERGY THAT IS LISTED IS HALDOL. RN SPOKE WITH PTS MOTHER AND SHE STATED THE PT WAS ONLY ALLERGIC TO HALDOL AND HAD NO OTHER KNOWLEDGE ABOUT THE HYDROXYZINE. MOTHER STATE I'M SURE HE JUST DOESN'T WANT TO TAKE THAT MEDICATIONS. PT CONTINUES TO REQUEST THE NUMBER FOR THE STATE SO I CAN FILE A COMPLAINT. PT WAS EDUCATED THAT ALL THE NUMBERS TO SPEAK WITH ADMINISTRATION IS IN PTS ADMISSION PAPER WORK AND HE CAN CALL ANY TIME BETWEEN [phone]. BAR SUPERVISOR WAS NOTIFIED OF PT DEMANDING TO SPEAK TO SOMEONE HIGHER UP THAN YOU GUYS. PT IS NOTED TO COME TO NURSES STATION AND RUDE TO STAFF. PT VERBALLY REDIRECTED WITH LITTLE RESOLVE. BAR SUPERVISOR CURRENTLY ON UNIT.
--- NOTE | 2024-07-17 17:35 | PC.NURSE ---
Spoke with pt mother on the phone. She stated that she was not accepting his phone calls, because it's usually not good for her to speak with him as it causes him to escalate. I advised her that pt was already escalating and I was attempting to get him to use a prescribed PRN of Zyprexa or Vistaril. Pt declined Vistaril stating I don't take that and when I offered Vistaril he stated I am allergic to that I asked his mother, pt guardian, if pt was allergic to Vistaril and she stated that he was not. She did confirm his allergy to haldol stating something weird happened when he took that in the past . She went on to ask about the d/c plan for the pt stating that he needed to have a level 2 assessment done. She believes if he is not in a locked unit he will ultimately elope and end up having to go to senior care. I informed her that she could speak with case managment on Saturday and they would help her to work through those processes. She instructed that we call if we needed anything. Mother also noted that she spoke with [facility] and they assured her that pt belongings were locked up and everything was safe until they could be picked up. She stated that she lives 3 hours away and wasn't able to drive down and collect them to just take them home and need to drop them off again soon.
--- NOTE | 2024-07-17 18:09 | PC.NURSE ---
NEW ORDERS RECEIVED FROM DR. NAQVI FOR GEODON 20 MG IM NOW. PT STATED I WILL TAKE THE GEODON, FUCK YEAH BUT NOT A FUCKING SHOT. DR. NAQVI INFORMED OF PT STATEMENTS AND WISHES. NEW ORDERS RECEIVED BY DR. NAQVI TO GIVE GEODON 40 MG PO NOW. PT EDUCATED THAT IF HE IS NOT ABLE TO CALM DOWN, STOP GOING INTO OTHER PT ROOMS AND STOP THROWING ITEMS AROUND IN HIS ROOM STAFF WILL NEED TO GIVE HIM INJECTIONS. PT STATES HE WILL TAKE THE GEODON BY MOUTH. SECURITY NOTIFIED OF PT BEHAVIORS AND AGGRESSION TOWARDS STAFF. DIET ASSISTANT ALSO NOTIFIED. AWAITING GEODON 40 MG PO TO BE VERIFIED BY PHARMACY AND WILL GO WITH SECURITY TO GIVE. SUPPORT VOICED.
[2024-07-17] MEDS: ziprasidone hcl 40 mg Capsule PO (18:16)
[2024-07-18 04:00] VITALS: BP 124/87; PULSE 96; RESP 16; TEMP 36.8; O2SAT 97
[2024-07-18 08:00] VITALS: BP 144/106; PULSE 97; RESP 18; TEMP 36.6; O2SAT 94
[2024-07-18] MEDS: methylphenidate 10 mg Tablet PO ×3 (08:50→15:53)
[2024-07-18] MEDS: folic acid 1 mg Tablet PO (08:51)
[2024-07-18] MEDS: OLANZapine 5 mg ODT PO (08:51)
[2024-07-18] MEDS: CLONazepam 0.5 mg Tablet PO ×2 (08:51→20:49)
[2024-07-18] MEDS: multivitamin therapeutic Tablet 1 TAB PO (08:51)
[2024-07-18] MEDS: escitalopram 10 mg Tablet PO (08:51)
[2024-07-18] MEDS: thiamine 100 mg Tablet PO (08:51)
--- NOTE | 2024-07-18 10:16 | W.PM.NPUPNS ---
Subjective NPU Subjective: 32-year-old male admitted with homicidal ideation with a history of psychosis, polysubstance abuse, depression and ADHD. The patient continued to endorse general suspiciousness towards others. She he continued to perseverate about the potential of potentially going to senior care. Patient states that all he wanted to do was get some help. He had reported that he wished to restart his Suboxone due to opiate cravings. He had reported that he had spoken to his mother and stated that he wished to go to an [facility]. He had reported having struggles with frequently running away and stated that he had difficulty sitting in one place for long periods of time. He had minimized thoughts of suicide today. Mental Status Exam MSE Comments: The patient was lying in the hospital bed and recognized the teletypewriter installer of this note. He had multiple tattoos on his body with fair eye contact and limited grooming. There was no evidence of any abnormal involuntary motor movements tics or tremors appreciated. There was evidence of mild psychomotor retardation. His speech was normal in regards to rate rhythm and volume. His mood was described as frustrated. His affect was anxious and mood congruent. His thought process was linear, logical and goal-directed. His thought content had revealed no suicidal ideation today with no homicidal ideation. He had acknowledged the potential danger of having overdosed on his medication. There was no evidence of delusional thinking. He did not appear to be responding to internal stimuli. His attention span appeared poor. His recent and remote memory appeared fair at best. He was alert and oriented to person place and time. His insight was poor. His judgment was poor. His impulse control appeared impaired. Vitals/I&O/Wt Last Vital Signs Temp 98 F 07/18/24 08:00 Pulse 97 07/18/24 08:00 Resp 18 07/18/24 08:00 BP 144/106 07/18/24 08:00 Pulse Ox 94 07/18/24 08:00 O2 Del Method Room Air 07/18/24 08:00 O2 Flow Rate 3 07/17/24 04:00 FiO2 2 07/16/24 06:45 07/17/24 07/18/24 07/18/24 22:59 06:59 14:59 Intake Total 300 / 600 Output Total 575 / 575 Balance -275 / 25 Weight last 48 hrs Weight 90.378 kg Weight 89.403 kg Data NPU 07/15/24 14:51 07/15/24 14:51 A&P Assessment and plan (1) Depression, unspecified: (2) Opioid dependence: (3) Suicidal ideation: (4) Alcohol intoxication: (5) Polysubstance abuse: Plan 33-year-old male currently admitted to the ICU after significant overdose on methadone, liquid cough medicine containing dextromethorphan with potential suicidal intent who will be admitted to the psychiatric unit once medically stabilized.. #1. Engage patient in individual milieu and group therapy. #2 Recommend sober living treatment at the highest level of care to which the patient is willing to commit #3 CIWA for alcohol withdrawal #4 TO-15 minute checks when admitted to inpatient psychiatric unit. #5 Will attempt to gather collateral information and make medication changes. Increase ritalin 10mg tid, add Suboxone 07/07 SL bid. PDMP PDMP Reviewed: Not Reviewed Involuntary Hold Information Hold Status: Legal Status: 96 Hour Hold Date/Time Hold Expires: 07/21/24 @ 1530 96 Hour Hold: 96 Hour Involuntary Admission: No Attestations NPU Medical Necessity Statement*: Inpatient psychiatric hospitalization is medically necessary and the clinically appropriate intervention at this time. We will monitor medications and make changes as indicated. The patient's likely length of stay is three to five days. Coding Level of Care Code Acute Code for [facility] Diagnoses Depression, unspecified F32.A Opioid dependence F11.20 Suicidal ideation R45.851 Alcohol intoxication F10.929 Polysubstance abuse F19.10
[2024-07-18 12:00] VITALS: BP 138/84; PULSE 136; RESP 18; TEMP 36.6; O2SAT 97
--- NOTE | 2024-07-18 14:16 | PC.NURSE ---
Pt requested that we fax a letter to his mother at [phone]. I completed this task for pt and made a copy of the letter along with the fax number we were given and placed in pt chart.
[2024-07-18 15:52] VITALS: BP 114/72; PULSE 136; RESP 18; TEMP 36.6; O2SAT 97
--- NOTE | 2024-07-18 16:02 | PC.NURSE ---
Pt has not scored in 24 hours on CIWA. No s/s of withdraw at this time. Back on current meds. CIWA protocol stopped per Dr. Paula at this time.
[2024-07-18] MEDS: nicotine 2 mg Gum 4 MG BUCCAL (16:21)
[2024-07-18] MEDS: buprenorphine-naloxone 4-1 mg Film 1 EACH SUBLINGUAL (17:22)
--- NOTE | 2024-07-18 18:20 | PC.NURSE ---
Pt was in dayroom watching tv and writing, This nurse, Jody GENTILE and Teressa Ramirez were sitting at nurses station, when I looked over at security camera of the dayroom pt was standing in a chair reaching up to the ceiling. From the view of the camera we could not tell exactly what pt was doing. The mentioned above quickly made our way to the dayroom and pt was found over by sink trying to wash a filter that he had removed from an air unit in the ceiling. Pt stated that the room was really hot and the filter was dirty We took the filter to the nurses station and closed the cover on the air unit. Pt was instructed to not be climbing in the chairs for safety purposes and he agreed. snow removing supervisor Gay, nurse deputy program manager notified.
--- NOTE | 2024-07-18 18:49 | PC.NURSE ---
PT UP TO NURSES STATION AT SEVERAL TIMES THIS SHIFT STATING I'M REALLY ANXIOUS AND AMPING UP I NEED MY KLONIPIN OR SOME ATIVAN. PT WAS INFORMED HE CAN TAKE VISTARIL OR ZYDIS. PT STATED I'M ALLERGIC TO VISTARIL AND ZYDIS, I CAN'T TAKE ANTI-PSYCHOTICS GOD I'M SICK OF SAYING THAT. PT WAS INFORMED AGAIN THAT THIS RN AND ARLENE RN HAVE SPOKE TO HIS GUARDIAN AND SHE CONFIRMS PTS ONLY ALLERGY IS HALDOL. PT STATES ITS IN MY RECORD JUST LOOK. RN INFORMED PT HIS CHART HAS BEEN REVIEWED AND THERE IS NO DOCUMENTATION TO THAT. PT HAS MADE SEVERAL COMPLAINTS OF THE HEAT AND HOW IT IS MAKING HIM MISERABLE. PT WAS INFORMED THAT THIS RN ATTEMPTED TO USE THE REMOTES TO TURN THE AIR ON BUT IT WAS NOT WORKING AND THE APPROPRIATE STAFF WAS NOTIFIED EARLIER. AT 1735 PT WAS OBSERVED ON CAMERA STANDING IN CHAIR IN THE DAY ROOM MESSING WITH CEILING TILES AND MESSING WITH THE AC. STAFF IMMEDIATELY RESPONDED AND PT HAD TAKEN OUT THE FILTER AND ATTEMPTED TO CLEAN IT STATING IT THE FILTER IS DIRTY AND I'M TRYING TO GET THE AIR TO WORK. PT ASSURED THAT WE DO NOT NEED HELP WITH THE AC UNIT AT THIS TIME. THIS RN WENT UP IN THE CHAIR AND SHUT THE AC UNIT AND TOOK THE FILTER TO THE BACK OF THE NURSES STATION. DRAWER WAXER, DR. NAQVI AND MOLD WASHER NOTIFIED. PT VERBALLY REDIRECTED. SUPPORT VOICED.
[2024-07-18 20:00] VITALS: BP 153/100; PULSE 126; RESP 17; TEMP 36.6; O2SAT 98
[2024-07-19 04:00] VITALS: BP 130/75; PULSE 85; RESP 17; TEMP 37.6; O2SAT 95
--- NOTE | 2024-07-19 05:42 | PC.NURSE ---
vs not taken per charge nurse resp 16
[2024-07-19 06:00] VITALS: BMI 29.0
[2024-07-19] MEDS: nicotine 2 mg Gum 4 MG BUCCAL ×3 (06:42→12:56)
[2024-07-19] MEDS: multivitamin therapeutic Tablet 1 TAB PO (08:27)
[2024-07-19] MEDS: buprenorphine-naloxone 4-1 mg Film 1 EACH SUBLINGUAL ×2 (08:27→17:12)
[2024-07-19] MEDS: thiamine 100 mg Tablet PO (08:27)
[2024-07-19] MEDS: folic acid 1 mg Tablet PO (08:27)
[2024-07-19] MEDS: escitalopram 10 mg Tablet PO (08:27)
[2024-07-19] MEDS: methylphenidate 10 mg Tablet PO (08:28)
--- NOTE | 2024-07-19 08:44 | PC.NURSE ---
Pt states that he slept well last night. Rates his anxiety a 7/10 and Depression a 6/10. No hallucinations reported. Denies SI/HI. No pain reported. Pt came up for his morning meds which includes ritalin and then requested his Klonapin. Yesterday is was observed that with each dose of Ritalin pt became more paranoid, irritable, and pace increased. He is already using the phone this am to call his mother, but states that she has blocked his number again.
[2024-07-19] MEDS: CLONazepam 0.5 mg Tablet PO ×2 (09:14→21:31)
--- NOTE | 2024-07-19 12:15 | PC.NURSE ---
Spoke with Dr. Paula about pt having increased paranoia and irritable with every dose of Ritalin he takes. I also informed him that he requested Klonopin with his Ritalin this morning. Dr. Paula gave a verbal order to stop all further doses of medication. I have called and left a message for guardian to informed of this change.
--- NOTE | 2024-07-19 12:22 | PC.NURSE ---
PT CONTINUES TO BE INTRUSIVE AT THE NURSES STATION AND MAKING DEMANDS TO STAFF. DEMANDS THAT STAFF SHOW HIM THE COMPUTER AND WHAT THEY ARE CHARTING ABOUT HIM, ALSO DEMANDS STAFF FAX MY PAPERS TO THE [employer], I FORGOT TO WRITE SOME STUFF IN THERE. PT WAS INFORMED THAT THE STAFF FAXED HIS LETTER SEVERAL TIMES TO HIS GUARDIAN REQUESTED AND HE WILL NEED TO WAIT FOR THE CASE WORKERS ON SATURDAY TO ADDRESS THOSE ISSUES. PT STOMPED OFF THEN CAME BACK HAVING INCREASED PARANOIA MAKING STATEMENTS THAT YOU ALL KEEP TALKING ABOUT, WHY ARE YOU TALKING ABOUT ME. PT WAS INFORMED SEVERAL TIMES THAT NO ONE IS SPEAKING ABOUT HIM AND WHEN WE ARE SPEAKING ON THE PHONE HE NEEDS TO GO TO THE DAY ROOM OR ROOM BECAUSE WE HAVE TO KEEP ALL PTS INFORMATION PRIVATE. PT CONTINUES TO COME TO DESK STATING HE'S AMPED UP, THEN ASKS WHEN HE CAN HAVE HIS RITALIN NEXT. THIS RN AND ARLENE RN SPOKE TO DR. NAQVI AND INFORMED HIM OF INCREASED PARANOIA AND IRRITABILITY. DR. NAQVI DISCONTINUED THE RITALIN DUE TO INCREASED PARANOIA AND IRRITABILITY.
[2024-07-19 14:00] VITALS: BP 97/57; PULSE 89; RESP 18; TEMP 37.4; O2SAT 97
--- NOTE | 2024-07-19 14:14 | PC.NURSE ---
PT WAS INFORMED OF RITALIN 10 MG TID BEING DISCONTINUED BY DR. NAQVI. PT WAS VERY UPSET AND MADE STATEMENTS YOU ALL ARE LYING ABOUT ME ON THE COMPUTER AND NOW I DON'T GET MY MEDICINE. JAVA GOLDEN GATE DEVELOPER AND SECURITY WAS CALLED DUE TO PT ESCALATING AND BEING ANGRY WITH STAFF. ONCE THEY ARRIVED PT GEARED MAJORITY OF STATEMENTS TO JAVA GOLDEN GATE DEVELOPER. PT STATED HOW DID DR. NAQVI KNOW HOW I WAS ACTING AND KNOW I PULLED THAT FILTER OUT IF YOU GUYS DIDN'T TELL HIM. THIS RN INFORMED PT THAT DR. NAQVI DOES READ THE CHART AND NURSES ARE TO CHART EVERY TWO HOURS PTS BEHAVIORS. PTS CONTINUES TO DEFLECT HIS CURRENT AND PAST BEHAVIORS ON THE UNIT DOWN PLAYING THE SEVERITY OF THE BEHAVIORS. PT WAS INFORMED THAT HE HAS BEEN MORE PARANOID AND AGITATED SINCE RECEIVING THE RITALIN. PT CONTINUED TO DENY PARANOIA AND AGITATION EVEN THOUGH IT HAS BEEN OBSERVED THE PAST TWO DAYS. RN REMINDED PT OF REQUEST FOR KLONIPIN THIS MORNING AFTER RECEIVING RITALIN BECAUSE IN HIS WORDS I'M TOO AMPED UP RIGHT NOW. PT THEN MADE STATEMENTS HE WAS CALLING STATE AND REPORTING ALL YOU DAMN NURSES THAT ARE LYING ON ME. PT WAS OBSERVED ON THE PHONE YELLING AT THE NURSES AND ASKING FOR NAMES. PT WAS INFORMED HE HAS BEEN GIVEN THE NURSES NAMES SEVERAL TIMES THROUGH HIS STAY AND RN WILL ADDRESS HIM WHEN FINISHED ASSISTING ANOTHER PT. IT IS UNCLEAR WHO PT WAS SPEAKING TO ON THE PHONE BUT HE DID STAY ON THE PHONE ANSWERING QUESTIONS FOR AT LEAST 30 MINUTES. PT CONTINUES TO BE UPSET THAT HIS MOTHER BLOCKED HIS CALLS TODAY AND IRRITATED WITH NURSING STAFF. OVERHEARD PT MAKING STATEMENTS THAT ITS THE NURSES FAULT THEY TOOK MY RITALIN AWAY NOT THE DOCTORS. AFTER PT GOT OFF THE PHONE HE WAS OBSERVED GOING TO ROOM AND SLAMMED THE DOOR. WHEN RN WAS GOING DOWN TO OPEN DOOR PTS DAD CALLED SO RN OPENED THE DOOR AND WAS INFORMED HIS DAD WAS ON THE PHONE TO SPEAK TO HIM. AT 1430 PT CONTINUES TO SPEAK ON THE PHONE TO DAD WHILE MAKING NEGATIVE COMMENTS TOWARDS NURSING STAFF. WHEN PT GOT OFF THE PHONE HE STOMPED OFF TO ROOM AND SLAMMED THE DOOR. SECURITY CRACKED THE DOOR, PT WENT AND SLAMMED IT AGAIN. PT WAS INFORMED THE DOORS MUST BE CRACKED SO STAFF CAN OBSERVE.
--- NOTE | 2024-07-19 14:25 | PC.NURSE ---
Pt came to the nurses station to request his noon medication. I informed pt that his noon medication had been d/c by the provider. Pt questioned why and we informed him that he would need to discuss that with Dr. Paula. Pt became very irritable and stated that we were lying about him on our computers and saying things about him that wasn't true. Pt wanted to speak with Bonbon Dipper. We let Daksha speak with pt and security was in his presence as well. Pt asked for numbers for state He spent roughly 30-45 min on phone giving someone information. He walked around numerous times and asked for names of staff. He has tried all day to speak with his mother (guardian) but she has called to the nurses station and informed us that she is not taking his calls. He did receive and take a call from his dad.
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
[2024-07-19 19:55] VITALS: BP 116/67; PULSE 79; RESP 17; TEMP 37; O2SAT 96
[2024-07-19] MEDS: mirtazapine 15 mg Tablet PO (21:31)
[2024-07-20 06:00] VITALS: BP 103/63; PULSE 80; RESP 18; TEMP 36.5; O2SAT 95
[2024-07-20] MEDS: nicotine 2 mg Gum 4 MG BUCCAL ×2 (08:02→13:12)
[2024-07-20] MEDS: folic acid 1 mg Tablet PO (08:02)
[2024-07-20] MEDS: multivitamin therapeutic Tablet 1 TAB PO (08:02)
[2024-07-20] MEDS: buprenorphine-naloxone 4-1 mg Film 1 EACH SUBLINGUAL ×2 (08:02→18:01)
[2024-07-20] MEDS: fluoxetine 20 mg Capsule PO (08:02)
[2024-07-20] MEDS: thiamine 100 mg Tablet PO (08:02)
[2024-07-20] MEDS: CLONazepam 0.5 mg Tablet PO ×2 (08:07→17:47)
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
[2024-07-20 14:00] VITALS: BP 119/76; PULSE 81; RESP 16; O2SAT 99
--- NOTE | 2024-07-20 17:13 | PC.NURSE ---
Dr. Paula had stated that he wanted to obtain an OP medication to initiate prior to patient being d/c'd. He states that he ordered Concerta to start on 07/21 but needed to obtain the medication somehow. I called and spoke with Amy Moran, Director of Outpatient Pharmacy and informed her of this information. She states that this medication has already been approved and is ready at [facility]. She states that they will deliver it to the hospital and ask the IP pharmacy to label it as a home medication to administer beginning on 07/21. Amy called back and was looking at the orders with Greg, Pharmacist and stated that he was unable to see the order for the medication in the active IP orders and he needed a non-formulary order placed and would label it and make space in the Pyxis for nursing to pull it and administer it from the bottle. I placed the non-formulary order per Dr. Paula and informed Brenda Schneider RN primary nurse of this update.
--- NOTE | 2024-07-20 17:35 | P.NPUPN_ITS ---
Subjective NPU 2 Subjective: 32-year-old male admitted with suicidal ideation with a history of psychosis, polysubstance abuse, depression and ADHD admitted after overdose. The patient minimized any suicidal ideation at this time. The patient's guardian had stated that she wished for the patient to be placed in a locked RTF. The patient had reported that he would like to be restarted on Concerta. The patient reported no feelings of hopelessness. He had been placed on a one-to-one after he had allegedly engaged in some destruction of property in his room. The patient had denied that he had done this. He had continued report excessive worry about going to senior care at this time. He had acknowledged that he had violated the rules and may be forced to return back to senior care. The patient had reported difficulties with attention and concentration and described being bored easily. He had reported problems with managing frustration and stated that he continued to struggle with PTSD related symptoms as well but stated that Prozac had been helpful for depression and anxiety for him. Mental Status Exam 2 MSE Comments: The patient was pacing the hallway during our discussion today. He was fidgety. He had multiple tattoos on his body with fair eye contact and limited grooming. There was no evidence of any abnormal involuntary motor movements tics or tremors appreciated. There was evidence of mild psychomotor retardation. His speech was normal in regards to rate, rhythm and volume. His mood was described as anxious. His affect was subdued today. His thought process was linear, logical and goal-directed. His thought content had revealed no suicidal ideation today with no homicidal ideation. He had acknowledged the potential danger of having overdosed on his medication. There was no evidence of delusional thinking although he was distrustful of others. He did not appear to be responding to internal stimuli. His attention span appeared poor. His recent and remote memory appeared fair at best. He was alert and oriented to person place and time. His insight was poor. His judgment was poor. His impulse control appeared impaired. Vitals/I&O/Wt Last Vital Signs Temp 97.7 F 07/20/24 06:00 Pulse 81 07/20/24 14:00 Resp 16 07/20/24 14:00 BP 119/76 07/20/24 14:00 Pulse Ox 99 07/20/24 14:00 O2 Del Method Room Air 07/20/24 06:00 O2 Flow Rate 3 07/17/24 04:00 FiO2 2 07/16/24 06:45 Weight last 48 hrs Weight 89.086 kg Data NPU 07/15/24 14:51 07/15/24 14:51 A&P Assessment and plan (1) Depression, unspecified: (2) ADHD (attention deficit hyperactivity disorder), combined type: (3) Opioid dependence: (4) Suicidal ideation: (5) Alcohol intoxication: (6) Polysubstance abuse: Plan 33-year-old male currently admitted to the ICU after significant overdose on methadone, liquid cough medicine containing dextromethorphan with potential suicidal intent who will be admitted to the psychiatric unit once medically stabilized.. #1. Engage patient in individual milieu and group therapy. #2 Recommend sober living treatment at the highest level of care to which the patient is willing to commit #3 CIWA for alcohol withdrawal #4 TO-15 minute checks when admitted to inpatient psychiatric unit. #5 Will attempt to gather collateral information and make medication changes. Continue Suboxone 8mg/day, hold ritalin at this time. Increase Prozac to 40mg daily to target anxiety and depression. Continue Remeron 15mg at night. Begin Concerta 27mg in am for adhd. PDMP PDMP Reviewed: Last Reviewed 07/20/24 12:52 EDT by Joon Paula MD Involuntary Hold Information 2 Hold Status: Legal Status: 96 Hour Hold Date/Time Hold Expires: 07/21/24 @ 1530 96 Hour Hold: 96 Hour Involuntary Admission: No Attestations NPU 2 Medical Necessity Statement*: Inpatient psychiatric hospitalization is medically necessary and the clinically appropriate intervention at this time. We will monitor medications and make changes as indicated. The patient's likely length of stay is 5-7 days. Coding Level of Care Code Acute Code for [facility] Diagnoses Depression, unspecified F32.A ADHD (attention deficit hyperactivity disorder), combined type F90.2 Opioid dependence F11.20 Suicidal ideation R45.851 Alcohol intoxication F10.929 Polysubstance abuse F19.10
[2024-07-20 19:48] VITALS: BP 102/61; PULSE 84; RESP 17; TEMP 36.5; O2SAT 94
[2024-07-20] MEDS: mirtazapine 15 mg Tablet PO (20:29)
[2024-07-21 06:23] VITALS: BP 123/76; PULSE 84; RESP 18; O2SAT 96
[2024-07-21] MEDS: nicotine 2 mg Gum 4 MG BUCCAL ×3 (07:43→15:40)
[2024-07-21] MEDS: multivitamin therapeutic Tablet 1 TAB PO (08:13)
[2024-07-21] MEDS: fluoxetine 20 mg Capsule PO (08:13)
[2024-07-21] MEDS: METHYLPHENIDATE 27 MG 1 EACH PO (08:13)
[2024-07-21] MEDS: folic acid 1 mg Tablet PO (08:13)
[2024-07-21] MEDS: buprenorphine-naloxone 4-1 mg Film 1 EACH SUBLINGUAL (08:13)
[2024-07-21] MEDS: thiamine 100 mg Tablet PO (08:13)
[2024-07-21] MEDS: CLONazepam 0.5 mg Tablet PO ×2 (08:50→19:20)
--- NOTE | 2024-07-21 11:07 | PC.NURSE ---
1:1 order stopped, per Dr. Paula at approximately 1051
[2024-07-21 14:00] VITALS: BP 137/90; PULSE 115; RESP 17; TEMP 36.7; O2SAT 99
--- NOTE | 2024-07-21 17:25 | W.PM.NPUPNS ---
Subjective NPU Subjective: 33-year-old male admitted with suicidal ideation with a history of psychosis, polysubstance abuse, depression and ADHD admitted after overdose. Records were reviewed. The patient appears to have a significant history of ADHD, depression, antisocial personality traits and substance abuse. He continued to engage in some perplexing behaviors here on the unit. He did not engage in any destruction of property but had been more isolative with no evidence of increased irritability with the initiation of Concerta 27 mg daily. He had reported having continued worries about [facility]. He had continued to show evidence of poor frustration tolerance. He had been able to engage in self-care. He had continued to show evidence of difficulties with impulsivity and reported some difficulties with sleep although he reported it was better with the addition of Remeron. Mental Status Exam MSE Comments: The patient was seen in his room today. He was less fidgety. He had multiple tattoos on his body with fair eye contact and limited grooming. There was no evidence of any abnormal involuntary motor movements tics or tremors appreciated. There was evidence of mild psychomotor retardation. His speech was normal in regards to rate, rhythm and volume. His mood was described as anxious. His affect remained subdued today. His thought process was linear, logical and goal-directed. His thought content had revealed no suicidal ideation today with no homicidal ideation. He had acknowledged the potential danger of having overdosed on his medication. There was no evidence of delusional thinking although he was distrustful of others. He did not appear to be responding to internal stimuli. His attention span appeared poor. His recent and remote memory appeared fair at best. He was alert and oriented to person place and time. His insight was poor. His judgment was poor. His impulse control appeared impaired. Vitals/I&O/Wt Last Vital Signs Temp 98.0 F 07/21/24 14:00 Pulse 115 H 07/21/24 14:00 Resp 17 07/21/24 14:00 BP 137/90 07/21/24 14:00 Pulse Ox 99 07/21/24 14:00 O2 Del Method Room Air 07/21/24 06:23 O2 Flow Rate 3 07/17/24 04:00 FiO2 2 07/16/24 06:45 Data NPU 07/15/24 14:51 07/15/24 14:51 A&P Assessment and plan (1) Depression, unspecified: (2) ADHD (attention deficit hyperactivity disorder), combined type: (3) Opioid dependence: (4) Suicidal ideation: (5) Alcohol intoxication: (6) Polysubstance abuse: Plan 33-year-old male currently admitted to the ICU after significant overdose on methadone, liquid cough medicine containing dextromethorphan with potential suicidal intent who will be admitted to the psychiatric unit once medically stabilized.. #1. Engage patient in individual milieu and group therapy. #2 Recommend sober living treatment at the highest level of care to which the patient is willing to commit #3 CIWA for alcohol withdrawal #4 TO-15 minute checks when admitted to inpatient psychiatric unit. #5 Will attempt to gather collateral information and make medication changes. Increase Suboxone 8mg/day bid, hold ritalin at this time. Increase Prozac to 40mg daily to target anxiety and depression. Continue Remeron 15mg at night. Continue Concerta 27mg in am for adhd. #6 Will file level 2, and complete letter regarding necessity of placement of patient in locked facility where he may remain on his medications prescribed. PDMP PDMP Reviewed: Last Reviewed 07/20/24 12:52 EDT by Joon Paula MD Involuntary Hold Information Hold Status: Legal Status: 96 Hour Hold Date/Time Hold Expires: 07/21/24 @ 1530 96 Hour Hold: 96 Hour Involuntary Admission: No Attestations NPU Medical Necessity Statement*: Inpatient psychiatric hospitalization is medically necessary and the clinically appropriate intervention at this time. We will monitor medications and make changes as indicated. The patient's likely length of stay is 5-7 days. Coding Level of Care Code Acute Code for [facility] Diagnoses Depression, unspecified F32.A ADHD (attention deficit hyperactivity disorder), combined type F90.2 Opioid dependence F11.20 Suicidal ideation R45.851 Alcohol intoxication F10.929 Polysubstance abuse F19.10
[2024-07-21] MEDS: buprenorphine-naloxone 4-1 mg Film 2 EACH SUBLINGUAL (18:06)
--- NOTE | 2024-07-21 18:25 | PC.NURSE ---
This nurse gave pt his scheduled suboxone and made him put it in his mouth in front of me. Security and I observed him in the dayroom camera take the suboxone out of his and then appeared to put it back in. When confronted the pt stated that he was just putting it under his tongue I informed pt that he was going to have to now stand and the nurses station and show us that it was desolved before he could leave anymore. Pt agreed. He is concerned about the behavior and how that may effect him. I assured him it was a safety thing and not to stress on it. He verbalized understanding.
[2024-07-21 20:36] VITALS: BP 128/81; PULSE 88; RESP 17; O2SAT 97
[2024-07-21] MEDS: mirtazapine 15 mg Tablet PO (22:09)
[2024-07-22 06:00] VITALS: BP 122/82; PULSE 72; RESP 18; O2SAT 100
[2024-07-22] MEDS: nicotine 2 mg Gum 4 MG BUCCAL ×3 (06:18→15:07)
[2024-07-22] MEDS: buprenorphine-naloxone 4-1 mg Film 2 EACH SUBLINGUAL ×2 (08:14→17:33)
[2024-07-22] MEDS: CLONazepam 0.5 mg Tablet PO ×2 (08:14→17:33)
[2024-07-22] MEDS: fluoxetine 20 mg Capsule 40 MG PO (08:14)
[2024-07-22] MEDS: multivitamin therapeutic Tablet 1 TAB PO (08:14)
[2024-07-22] MEDS: thiamine 100 mg Tablet PO (08:15)
[2024-07-22] MEDS: folic acid 1 mg Tablet PO (08:15)
[2024-07-22] MEDS: METHYLPHENIDATE 27 MG 1 EACH PO (08:15)
[2024-07-22 13:45] VITALS: BP 130/89; PULSE 104; RESP 16; TEMP 36.6; O2SAT 99
--- NOTE | 2024-07-22 17:07 | P.NPUPN_ITS ---
Subjective NPU 2 Subjective: 33-year-old male admitted with suicidal ideation with a history of psychosis, polysubstance abuse, depression and ADHD admitted after overdose. Records were reviewed. The patient had appeared much less irritable and more focused while taking Concerta. He had been friendly and cooperative today. He had reported that he felt calmer and more focused. He had described feeling less bored. He had reported improved sleep on Remeron. He continued to report feeling anxious about the future and stated that he was struggling with worries about being placed back in [facility] stating that he had significant time that he had accrued in custodial. He had described having had a traumatic experience in custodial and was hopeful about avoiding it. He had again stated that he would be appreciative if placed in a locked facility where he could take his medications as prescribed. Patient endorsed occasional flashbacks and nightmares regarding trauma here. Mental Status Exam 2 MSE Comments: The patient was lying in the hospital bed and recognized the residential mortgage underwriter of this note. He had multiple tattoos on his body with fair eye contact and limited grooming. There was no evidence of any abnormal involuntary motor movements tics or tremors appreciated. There was evidence of mild psychomotor retardation. His speech was normal in regards to rate, rhythm, and volume. His mood was described as okay. His affect was mildly restricted. His thought process was linear, logica, and goal-directed. His thought content had revealed no suicidal ideation with no homicidal ideation. There was no evidence of delusional thinking. He did not appear to be responding to internal stimuli. His attention span appeared poor. His recent and remote memory appeared fair at best. He was alert and oriented to person, place, and time. His insight was poor. His judgment was poor. His impulse control appeared impaired. Vitals/I&O/Wt Last Vital Signs Temp 97.8 F 07/22/24 13:45 Pulse 104 H 07/22/24 13:45 Resp 16 07/22/24 13:45 BP 130/89 07/22/24 13:45 Pulse Ox 99 07/22/24 13:45 O2 Del Method Room Air 07/22/24 13:45 O2 Flow Rate 3 07/17/24 04:00 FiO2 2 07/16/24 06:45 Data NPU 07/15/24 14:51 07/15/24 14:51 A&P Assessment and plan (1) Depression, unspecified: (2) Suicidal ideation: (3) ADHD (attention deficit hyperactivity disorder), combined type: (4) Opioid dependence: (5) Polysubstance abuse: (6) PTSD (post-traumatic stress disorder): Plan 33-year-old male currently admitted to the ICU after significant overdose on methadone, liquid cough medicine containing dextromethorphan with potential suicidal intent who will be admitted to the psychiatric unit once medically stabilized.. #1. Engage patient in individual milieu and group therapy. #2 Recommend sober living treatment at the highest level of care to which the patient is willing to commit #3 CIWA for alcohol withdrawal #4 TO-15 minute checks when admitted to inpatient psychiatric unit. #5 Will attempt to gather collateral information and make medication changes. PDMP PDMP Reviewed: Last Reviewed 07/22/24 11:29 EDT by Joon Paula MD Involuntary Hold Information 2 Hold Status: Legal Status: 96 Hour Hold Date/Time Hold Expires: 07/21/24 @ 1530 96 Hour Hold: 96 Hour Involuntary Admission: No Attestations NPU 2 Medical Necessity Statement*: Inpatient psychiatric hospitalization is medically necessary and the clinically appropriate intervention at this time. We will monitor medications and make changes as indicated. The patient's likely length of stay is 5-7 days. Coding Level of Care Code Acute Code for [facility] Diagnoses Depression, unspecified F32.A Suicidal ideation R45.851 ADHD (attention deficit hyperactivity disorder), combined type F90.2 Opioid dependence F11.20 Polysubstance abuse F19.10 PTSD (post-traumatic stress disorder) F43.10
[2024-07-22] MEDS: mirtazapine 15 mg Tablet PO (19:51)
[2024-07-22] MEDS: calcium carbonate 500 mg Chew Tablet 1000 MG PO (19:51)
[2024-07-22] MEDS: trazodone 50 mg Tablet PO (19:51)
[2024-07-22 20:11] VITALS: BP 136/92; PULSE 116; RESP 18; TEMP 36.4; O2SAT 97
[2024-07-23 06:00] VITALS: BP 126/89; PULSE 89; RESP 17; TEMP 36.3; O2SAT 97
[2024-07-23] MEDS: nicotine 2 mg Gum 4 MG BUCCAL ×2 (06:14→11:41)
--- NOTE | 2024-07-23 08:11 | PC.NURSE ---
Pt states that he slept off and on last night. Rates his anxiety a 7/10 and depression a 6/10 this morning. Reports no hallucinations and denies SI/HI. Denies pain at this time. Pt is currently up in [place] walking with a peer after eating breakfast.
[2024-07-23] MEDS: METHYLPHENIDATE 36 MG 1 EACH PO (08:17)
[2024-07-23] MEDS: thiamine 100 mg Tablet PO (08:18)
[2024-07-23] MEDS: CLONazepam 0.5 mg Tablet PO ×2 (08:18→18:19)
[2024-07-23] MEDS: multivitamin therapeutic Tablet 1 TAB PO (08:18)
[2024-07-23] MEDS: fluoxetine 20 mg Capsule 40 MG PO (08:18)
[2024-07-23] MEDS: buprenorphine-naloxone 4-1 mg Film 2 EACH SUBLINGUAL ×2 (08:18→17:31)
[2024-07-23] MEDS: folic acid 1 mg Tablet PO (08:18)
[2024-07-23] MEDS: calcium carbonate 500 mg Chew Tablet 1000 MG PO ×2 (11:41→23:01)
--- NOTE | 2024-07-23 13:37 | PC.NURSE ---
Room Checks While doing room checks today pt was noted to have a cup of cold coffee in the back bottom corner of the nightstand. A pair of long sleeves that had been removed from a shirt. Numerous creamer and sugar packets. As we were leaving the room and pt saw us with the cup of coffee he insisted on keeping it, stating that he was still drinking on it. We informed him that we take and dispose of what we find during room checks. Pt cont to be adamant that we let him keep the cup of coffee and tried removing it from the hands of the aid. Pt stated you guys are being so wall Pt educated on daily room checks.
[2024-07-23 14:00] VITALS: BP 146/91; PULSE 88; RESP 16; TEMP 36.6; O2SAT 99
--- NOTE | 2024-07-23 14:16 | P.NPUPN_ITS ---
Subjective NPU 2 Subjective: 33-year-old male admitted with suicidal ideation with a history of psychosis, polysubstance abuse, depression and ADHD admitted after overdose.Patient reported concern that he would be [facility] and continued to remain anxious regarding this matter. He had continued to engage in some destructive behavior here on the unit. He had continued to report distrust of others as he stated that the nursing staff was constantly speaking about him. When questioned regarding this matter on interview, the patient had stated that he knew this to not be true but stated that it was something to do to keep from getting bored. He had endorsed chronic PTSD symptoms reporting occasional nightmares. He had reported improved focus on the Concerta which was increased today. Patient had no side effects reported from his medication regimen. Mental Status Exam 2 MSE Comments: The patient was lying in the hospital bed and recognized the automatic typewriter inspector of this note. He had multiple tattoos on his body with fair eye contact and limited grooming. There was no evidence of any abnormal involuntary motor movements tics or tremors appreciated. There was evidence of mild psychomotor retardation. His speech was normal in regards to rate, rhythm, and volume. His mood was described as okay. His affect was flat today. His thought process was linear, logica, and goal-directed. His thought content had revealed no suicidal ideation with no homicidal ideation. There was no evidence of delusional thinking. He did not appear to be responding to internal stimuli. His attention span appeared improved. His recent and remote memory appeared fair at best. He was alert and oriented to person, place, and time. His insight was poor. His judgment was poor. His impulse control appeared limited. Vitals/I&O/Wt Last Vital Signs Temp 97.8 F 07/23/24 14:00 Pulse 88 07/23/24 14:00 Resp 16 07/23/24 14:00 BP 146/91 07/23/24 14:00 Pulse Ox 99 07/23/24 14:00 O2 Del Method Room Air 07/23/24 14:00 O2 Flow Rate 3 07/17/24 04:00 FiO2 2 07/16/24 06:45 Data NPU 07/15/24 14:51 07/15/24 14:51 A&P Assessment and plan (1) Depression, unspecified: (2) Suicidal ideation: (3) ADHD (attention deficit hyperactivity disorder), combined type: (4) Opioid dependence: (5) Polysubstance abuse: (6) PTSD (post-traumatic stress disorder): Plan 33-year-old male currently admitted to the ICU after significant overdose on methadone, liquid cough medicine containing dextromethorphan with potential suicidal intent who will be admitted to the psychiatric unit once medically stabilized.. #1. Engage patient in individual milieu and group therapy. #2 Recommend sober living treatment at the highest level of care to which the patient is willing to commit #3 CIWA for alcohol withdrawal #4 TO-15 minute checks when admitted to inpatient psychiatric unit. #5 Will attempt to gather collateral information and make medication changes. Continue Concerta 36mg in am, Klonopin and suboxone as prescribed. PDMP PDMP Reviewed: Last Reviewed 07/22/24 11:29 EDT by Joon Paula MD Involuntary Hold Information 2 Hold Status: Legal Status: Active Guardianship Date/Time Hold Expires: @ 1530 96 Hour Hold: 96 Hour Involuntary Admission: No Attestations NPU 2 Medical Necessity Statement*: Inpatient psychiatric hospitalization is medically necessary and the clinically appropriate intervention at this time. We will monitor medications and make changes as indicated. The patient's likely length of stay is 5-7 days. Coding Level of Care Code Acute Code for [facility] Diagnoses Depression, unspecified F32.A Suicidal ideation R45.851 ADHD (attention deficit hyperactivity disorder), combined type F90.2 Opioid dependence F11.20 Polysubstance abuse F19.10 PTSD (post-traumatic stress disorder) F43.10
--- NOTE | 2024-07-23 17:23 | PC.NURSE ---
CONTINUES TO EXHIBIT PARANOID BEHAVIORS THROUGHOUT THE SHIFT. PT STATES THESE NURSES ARE AGAINST ME AND MY MEDICATIONS. I KNOW THEY ARE. THIS RN ATTEMPTED TO EDUCATE PT THAT WHEN THE NURSES ARE ON THE PHONE THEY ARE NOT ALWAYS SPEAKING ABOUT HIM. PT STATES HE KNOW THEY ARE AND THERE IS NOTHING I CAN SAY TO MAKE HIM THINK DIFFERENT. PT WAS INTRUSIVE THE MAJORITY OF THE MORNING BUT AT THE END OF THE SHIFT DID STOP COMING TO THE NURSES STATION. PT CURRENTLY IN DAY ROOM PLAYING CARDS WITH PEERS. SUPPORT VOICED.
--- NOTE | 2024-07-23 17:54 | PC.NURSE ---
Pt found a fall mat from another pt room and placed it in his. RICHI Guardado found the mat and removed it. He attempted to argue with aid and tried to keep. The mat was ultimately removed.
--- NOTE | 2024-07-23 18:13 | PC.NURSE ---
Pt refused his 1800 Klonopin. States that he talked to Chai about rescheduling it to bedtime. I told pt that we would have to obtain a new order for that. Pt verbalized understanding.
[2024-07-23 20:04] VITALS: BP 125/82; PULSE 92; RESP 17; TEMP 36.7; O2SAT 96
[2024-07-23] MEDS: mirtazapine 15 mg Tablet PO (20:40)
[2024-07-24 06:00] VITALS: BP 107/66; PULSE 88; RESP 17; TEMP 36.8; O2SAT 96
[2024-07-24] MEDS: fluoxetine 20 mg Capsule 40 MG PO (07:16)
[2024-07-24] MEDS: multivitamin therapeutic Tablet 1 TAB PO ×2 (07:16→07:20)
[2024-07-24] MEDS: thiamine 100 mg Tablet PO (07:16)
[2024-07-24] MEDS: buprenorphine-naloxone 4-1 mg Film 2 EACH SUBLINGUAL ×2 (07:16→17:25)
[2024-07-24] MEDS: CLONazepam 0.5 mg Tablet PO ×2 (07:16→17:25)
[2024-07-24] MEDS: METHYLPHENIDATE 36 MG 1 EACH PO (07:22)
[2024-07-24] MEDS: calcium carbonate 500 mg Chew Tablet 1000 MG PO ×2 (08:58→21:01)
[2024-07-24 14:00] VITALS: BP 128/79; PULSE 93; RESP 18; TEMP 36.6; O2SAT 99
[2024-07-24] MEDS: nicotine 2 mg Gum 4 MG BUCCAL ×2 (14:14→21:02)
--- NOTE | 2024-07-24 15:07 | P.NPUPN_ITS ---
Subjective NPU 2 Subjective: Patient presented today reporting he is doing okay. We had a lengthy discussion about the challenges that he is creating by having his medications be Klonopin, Concerta and Suboxone. We discussed the clear clinical indication for Suboxone and its safety implications for people use it. We discussed the effectiveness of extended release ADHD medication or people for whom it is indicated. Then we discussed the lack of clinical evidence for long-term use of benzodiazepines and that he would be hard pressed to find a provider once he was discharged and even if he went to a level 2 treatment facility that would be happy about the idea of prescribing those 3 agents to 1 person. We discussed the possibility of tapering off his Klonopin and putting the risks, benefits and alternatives he understood and agreed to proceed as is documented in this note. He also talked about the possibility of utilizing Ambien for sleep which she reports worked well. We discussed the fact that it is not a benzodiazepine and the full assistance but that it is often classified under the sedative hypnotics with benzodiazepines. And that there might be some people that have concerns with that but certainly that would be better than having an escalating dose of Klonopin for him moving forward. He denied any side effects of the medication. Mental Status Exam 2 MSE Comments: The patient was lying in the hospital bed and recognized the automobile and property underwriter of this note. He had multiple tattoos on his body with fair eye contact and limited grooming. There was no evidence of any abnormal involuntary motor movements tics or tremors appreciated. There was evidence of mild psychomotor retardation. His speech was normal in regards to rate, rhythm, and volume. His mood was described as okay. His affect was flat today. His thought process was linear, logica, and goal-directed. His thought content had revealed no suicidal ideation with no homicidal ideation. There was no evidence of delusional thinking. He did not appear to be responding to internal stimuli. His attention span appeared improved. His recent and remote memory appeared fair at best. He was alert and oriented to person, place, and time. His insight was poor. His judgment was poor. His impulse control appeared limited. Vitals/I&O/Wt Last Vital Signs Temp 97.8 F 07/24/24 14:00 Pulse 93 07/24/24 14:00 Resp 18 07/24/24 14:00 BP 128/79 07/24/24 14:00 Pulse Ox 99 07/24/24 14:00 O2 Del Method Room Air 07/24/24 06:00 O2 Flow Rate 3 07/17/24 04:00 FiO2 2 07/16/24 06:45 Data NPU 07/15/24 14:51 07/15/24 14:51 A&P Assessment and plan (1) Depression, unspecified: (2) Suicidal ideation: (3) ADHD (attention deficit hyperactivity disorder), combined type: (4) Opioid dependence: (5) Polysubstance abuse: (6) PTSD (post-traumatic stress disorder): Plan 33-year-old male who was admitted to the ICU after significant overdose on methadone, liquid cough medicine containing dextromethorphan with suicidal intent and later admitted to the psychiatric unit once medically stabilized. 1. Continue current medication. Including Concerta and Suboxone. We discussed decreasing the Klonopin and possibly considering Ambien to assist with sleep. 2. Recommend sober living treatment after discharge at the highest level of care to which the patient is willing to commit 3. CIWA for alcohol withdrawal 4. Continue every 15 minute checks for safety. 5. Will attempt to gather collateral information. PDMP PDMP Reviewed: Not Reviewed Involuntary Hold Information 2 Hold Status: Legal Status: Active Guardianship Date/Time Hold Expires: @ 1530 96 Hour Hold: 96 Hour Involuntary Admission: No Attestations NPU 2 Medical Necessity Statement*: Inpatient psychiatric hospitalization is medically necessary and the clinically appropriate intervention at this time. We will monitor medications and make changes as indicated. The patient's likely length of stay is 4-6 days. Coding Level of Care Code Acute Code for [facility] Diagnoses Depression, unspecified F32.A Suicidal ideation R45.851 ADHD (attention deficit hyperactivity disorder), combined type F90.2 Opioid dependence F11.20 Polysubstance abuse F19.10 PTSD (post-traumatic stress disorder) F43.10
[2024-07-24 20:10] VITALS: BP 122/77; PULSE 95; RESP 17; TEMP 37.4; O2SAT 95
[2024-07-24] MEDS: mirtazapine 15 mg Tablet PO (21:01)
[2024-07-25 06:00] VITALS: BP 130/91; PULSE 84; RESP 18; TEMP 37.6; O2SAT 97
[2024-07-25] MEDS: nicotine 2 mg Gum 4 MG BUCCAL ×3 (06:47→20:52)
[2024-07-25] MEDS: buprenorphine-naloxone 4-1 mg Film 2 EACH SUBLINGUAL ×2 (08:08→17:05)
[2024-07-25] MEDS: fluoxetine 20 mg Capsule 40 MG PO (08:09)
[2024-07-25] MEDS: METHYLPHENIDATE 36 MG 1 EACH PO (08:09)
[2024-07-25] MEDS: thiamine 100 mg Tablet PO (08:09)
[2024-07-25] MEDS: folic acid 1 mg Tablet PO (08:09)
[2024-07-25 14:00] VITALS: BP 115/72; PULSE 116; RESP 16; TEMP 37.1; O2SAT 100
--- NOTE | 2024-07-25 14:10 | P.NPUPN_ITS ---
Subjective NPU 2 Subjective: Patient presented today reporting things are going okay. He was in the day room doing a quite involved chalk design on the chalk board. He reports that he is worried about what is going to happen next in the situation related to his possible incarceration. He reports his mother has been communicating with people and he is trying to write some letters that could be supportive and maybe keep him out of retirement. He reports that he prefer to go to a level 2 facility. He is tolerating the decrease in the Klonopin fine and we talked about continuing that possibly starting Ambien after discussion of the risks, benefits and alternatives he understood and agreed to proceed as is documented in his note. We discussed the fact that we would have some better sense of what was going to happen next at the beginning of the week. He denied any side effects of medication. Mental Status Exam 2 MSE Comments: This an overweight versus obese white male in hospital scrubs with adequate grooming and eye contact. He had multiple tattoos on his body with fair eye contact and limited grooming. There was no evidence of any abnormal involuntary motor movements tics or tremors appreciated. There was evidence of mild psychomotor retardation. His speech was normal in regards to rate, rhythm, and volume. His mood was described as okay. His affect was flat today. His thought process was linear, logica, and goal-directed. His thought content had revealed no suicidal ideation with no homicidal ideation. There was no evidence of delusional thinking. He did not appear to be responding to internal stimuli. His attention span appeared improved. His recent and remote memory appeared fair at best. He was alert and oriented to person, place, and time. His insight was poor. His judgment was poor. His impulse control appeared limited. Vitals/I&O/Wt Last Vital Signs Temp 99.6 F 07/25/24 06:00 Pulse 84 07/25/24 06:00 Resp 18 07/25/24 06:00 BP 130/91 07/25/24 06:00 Pulse Ox 97 07/25/24 06:00 O2 Del Method Room Air 07/25/24 06:00 O2 Flow Rate 3 07/17/24 04:00 FiO2 2 07/16/24 06:45 07/24/24 07/25/24 07/25/24 22:59 06:59 14:59 Intake Total 300 / 300 Output Total 575 / 575 Balance -275 / -275 Data NPU 07/15/24 14:51 07/15/24 14:51 A&P Assessment and plan (1) Depression, unspecified: (2) Suicidal ideation: (3) ADHD (attention deficit hyperactivity disorder), combined type: (4) Opioid dependence: (5) Polysubstance abuse: (6) PTSD (post-traumatic stress disorder): Plan 33-year-old male who was admitted to the ICU after significant overdose on methadone, liquid cough medicine containing dextromethorphan with suicidal intent and later admitted to the psychiatric unit once medically stabilized. 1. Continue current medication. Including Concerta and Suboxone. We discussed decreasing the Klonopin and possibly considering Ambien to assist with sleep. 2. Recommend sober living treatment after discharge at the highest level of care to which the patient is willing to commit 3. CIWA for alcohol withdrawal 4. Continue every 15 minute checks for safety. 5. Will attempt to gather collateral information. PDMP PDMP Reviewed: Not Reviewed Involuntary Hold Information 2 Hold Status: Legal Status: Active Guardianship Date/Time Hold Expires: @ 1530 96 Hour Hold: 96 Hour Involuntary Admission: No Attestations NPU 2 Medical Necessity Statement*: Inpatient psychiatric hospitalization is medically necessary and the clinically appropriate intervention at this time. We will monitor medications and make changes as indicated. The patient's likely length of stay is 3-5 days. Coding Level of Care Code Acute Code for [facility] Fwd Diagnoses Depression, unspecified F32.A Suicidal ideation R45.851 ADHD (attention deficit hyperactivity disorder), combined type F90.2 Opioid dependence F11.20 Polysubstance abuse F19.10 PTSD (post-traumatic stress disorder) F43.10
[2024-07-25 20:02] VITALS: BP 114/81; PULSE 100; RESP 18; O2SAT 96
[2024-07-25] MEDS: mirtazapine 15 mg Tablet PO (20:51)
[2024-07-25] MEDS: CLONazepam 0.5 mg Tablet PO (20:51)
[2024-07-25] MEDS: calcium carbonate 500 mg Chew Tablet 1000 MG PO (20:53)
[2024-07-26 06:00] VITALS: BP 120/67; PULSE 100; RESP 16; O2SAT 98
[2024-07-26] MEDS: nicotine 2 mg Gum 4 MG BUCCAL ×3 (06:48→21:14)
[2024-07-26] MEDS: calcium carbonate 500 mg Chew Tablet 1000 MG PO ×2 (06:48→18:20)
[2024-07-26] MEDS: fluoxetine 20 mg Capsule 40 MG PO (08:19)
[2024-07-26] MEDS: folic acid 1 mg Tablet PO (08:19)
[2024-07-26] MEDS: multivitamin therapeutic Tablet 1 TAB PO (08:19)
[2024-07-26] MEDS: buprenorphine-naloxone 4-1 mg Film 2 EACH SUBLINGUAL ×2 (08:19→17:39)
[2024-07-26] MEDS: METHYLPHENIDATE 36 MG 1 EACH PO (08:19)
[2024-07-26] MEDS: thiamine 100 mg Tablet PO (08:19)
--- NOTE | 2024-07-26 08:29 | P.NPUPN_ITS ---
Subjective NPU 2 Subjective: Patient presented today reporting that things are going fine. He continue to focus on his trying to create this alternate possibility at discharge. He reports concern that things not working out at [facility] could lead to him going [facility] to present. We discussed that we have a treatment team in the morning and I will get a full picture of this plan for level 2 and how it is supposed to work. We discussed that after that we would have a better idea of how things would go and how the timeline for discharge will look. We discussed discontinuing his Klonopin including the risks, benefits and alternatives and starting Ambien at bedtime and he understood and agreed to proceed as is documented in this note. He denied any side effects to the medication. Mental Status Exam 2 MSE Comments: This an overweight versus obese white male in hospital scrubs with adequate grooming and eye contact. He had multiple tattoos on his body with fair eye contact and limited grooming. There was no evidence of any abnormal involuntary motor movements tics or tremors appreciated. There was evidence of mild psychomotor retardation. His speech was normal in regards to rate, rhythm, and volume. His mood was described as okay. His affect was flat today. His thought process was linear, logica, and goal-directed. His thought content had revealed no suicidal ideation with no homicidal ideation. There was no evidence of delusional thinking. He did not appear to be responding to internal stimuli. His attention span appeared improved. His recent and remote memory appeared fair at best. He was alert and oriented to person, place, and time. His insight was poor. His judgment was poor. His impulse control appeared limited. Vitals/I&O/Wt Last Vital Signs Temp 98.7 F 07/25/24 14:00 Pulse 100 07/26/24 06:00 Resp 16 07/26/24 06:00 BP 120/67 07/26/24 06:00 Pulse Ox 98 07/26/24 06:00 O2 Del Method Room Air 07/25/24 14:00 O2 Flow Rate 3 07/17/24 04:00 FiO2 2 07/16/24 06:45 07/25/24 07/26/24 07/26/24 22:59 06:59 14:59 Intake Total 300 / 600 Output Total 575 / 1150 Balance -275 / -550 Weight last 48 hrs Weight 89.981 kg Data NPU 07/15/24 14:51 04/09/25 14:51 A&P Assessment and plan (1) Depression, unspecified: (2) Suicidal ideation: (3) ADHD (attention deficit hyperactivity disorder), combined type: (4) Opioid dependence: (5) Polysubstance abuse: (6) PTSD (post-traumatic stress disorder): Plan 33-year-old male who was admitted to the ICU after significant overdose on methadone, liquid cough medicine containing dextromethorphan with suicidal intent and later admitted to the psychiatric unit once medically stabilized. 1. Continue current medication. Including Concerta and Suboxone. We discussed decreasing the Klonopin and possibly considering Ambien to assist with sleep. Discontinued Klonopin and started Ambien 10 mg p.o. nightly. Also will consider increasing Concerta to 54 mg p.o. daily. 2. Recommend sober living treatment after discharge at the highest level of care to which the patient is willing to commit 3. CIWA for alcohol withdrawal 4. Continue every 15 minute checks for safety. 5. Will attempt to gather collateral information. PDMP PDMP Reviewed: Not Reviewed Involuntary Hold Information 2 Hold Status: Legal Status: Active Guardianship Date/Time Hold Expires: @ 1530 96 Hour Hold: 96 Hour Involuntary Admission: No Attestations NPU 2 Medical Necessity Statement*: Inpatient psychiatric hospitalization is medically necessary and the clinically appropriate intervention at this time. We will monitor medications and make changes as indicated. The patient's likely length of stay is 2-4 days. Coding Level of Care Code Acute Code for [facility] Fwd Diagnoses Depression, unspecified F32.A Suicidal ideation R45.851 ADHD (attention deficit hyperactivity disorder), combined type F90.2 Opioid dependence F11.20 Polysubstance abuse F19.10 PTSD (post-traumatic stress disorder) F43.10
[2024-07-26 14:00] VITALS: BP 112/76; PULSE 91; RESP 17; TEMP 37.2; O2SAT 99
[2024-07-26 19:29] VITALS: BP 112/73; PULSE 90; RESP 16; TEMP 37.2; O2SAT 97
[2024-07-26] MEDS: mirtazapine 15 mg Tablet PO (21:15)
[2024-07-26] MEDS: zolpidem 5 mg Tablet 10 MG PO (21:15)
[2024-07-27 06:00] VITALS: BP 122/85; PULSE 79; RESP 17; TEMP 36.4; O2SAT 99
[2024-07-27] MEDS: nicotine 2 mg Gum 4 MG BUCCAL ×2 (06:25→12:42)
[2024-07-27] MEDS: fluoxetine 20 mg Capsule 40 MG PO (07:52)
[2024-07-27] MEDS: multivitamin therapeutic Tablet 1 TAB PO (07:53)
[2024-07-27] MEDS: thiamine 100 mg Tablet PO (07:53)
[2024-07-27] MEDS: buprenorphine-naloxone 4-1 mg Film 2 EACH SUBLINGUAL ×2 (07:53→17:02)
[2024-07-27] MEDS: folic acid 1 mg Tablet PO (07:53)
[2024-07-27] MEDS: METHYLPHENIDATE 36 MG 1 EACH PO (07:53)
--- NOTE | 2024-07-27 13:52 | P.NPUPN_ITS ---
Subjective NPU 2 Subjective: Patient presented today reporting that things are going fine. He continued to report stressing about his placement and fear of incarceration. He continued to focus on his medication and reported that he did sleep well with the Ambien last night. We discussed the likelihood of increasing his Concerta to 54 mg p.o. daily after discussion of the risks, benefits and alternatives and he understood and agreed to proceed as is documented in this note. Mental Status Exam 2 MSE Comments: This an overweight versus obese white male in hospital scrubs with adequate grooming and eye contact. He had multiple tattoos on his body with fair eye contact and limited grooming. There was no evidence of any abnormal involuntary motor movements tics or tremors appreciated. There was evidence of mild psychomotor retardation. His speech was normal in regards to rate, rhythm, and volume. His mood was described as okay. His affect was flat today. His thought process was linear, logica, and goal-directed. His thought content had revealed no suicidal ideation with no homicidal ideation. There was no evidence of delusional thinking. He did not appear to be responding to internal stimuli. His attention span appeared improved. His recent and remote memory appeared fair at best. He was alert and oriented to person, place, and time. His insight was poor. His judgment was poor. His impulse control appeared limited. Vitals/I&O/Wt Last Vital Signs Temp 97.6 F 07/27/24 06:00 Pulse 79 07/27/24 06:00 Resp 17 07/27/24 06:00 BP 122/85 07/27/24 06:00 Pulse Ox 99 07/27/24 06:00 O2 Del Method Room Air 07/27/24 06:00 O2 Flow Rate 3 07/17/24 04:00 FiO2 2 07/16/24 06:45 Weight last 48 hrs Weight 89.981 kg Data NPU 07/15/24 14:51 07/15/24 14:51 A&P Assessment and plan (1) Depression, unspecified: (2) Suicidal ideation: (3) ADHD (attention deficit hyperactivity disorder), combined type: (4) Opioid dependence: (5) Polysubstance abuse: (6) PTSD (post-traumatic stress disorder): Plan 33-year-old male who was admitted to the ICU after significant overdose on methadone, liquid cough medicine containing dextromethorphan with suicidal intent and later admitted to the psychiatric unit once medically stabilized. 1. Continue current medication. Including Concerta and Suboxone. We discussed decreasing the Klonopin and possibly considering Ambien to assist with sleep. Discontinued Klonopin and started Ambien 10 mg p.o. nightly. Also will consider increasing Concerta to 54 mg p.o. daily. 2. Recommend sober living treatment after discharge at the highest level of care to which the patient is willing to commit 3. CIWA for alcohol withdrawal 4. Continue every 15 minute checks for safety. 5. Will attempt to gather collateral information. PDMP PDMP Reviewed: Not Reviewed Involuntary Hold Information 2 Hold Status: Legal Status: Active Guardianship Date/Time Hold Expires: @ 1530 96 Hour Hold: 96 Hour Involuntary Admission: No Attestations NPU 2 Medical Necessity Statement*: Inpatient psychiatric hospitalization is medically necessary and the clinically appropriate intervention at this time. We will monitor medications and make changes as indicated. The patient's likely length of stay is 2-4 days. Coding Level of Care Code Acute Code for [facility] Fwd Diagnoses Depression, unspecified F32.A Suicidal ideation R45.851 ADHD (attention deficit hyperactivity disorder), combined type F90.2 Opioid dependence F11.20 Polysubstance abuse F19.10 PTSD (post-traumatic stress disorder) F43.10
[2024-07-27 14:00] VITALS: BP 126/73; PULSE 102; RESP 18; TEMP 36.6; O2SAT 98
[2024-07-27 20:18] VITALS: BP 114/74; PULSE 99; RESP 18; O2SAT 96
[2024-07-27] MEDS: mirtazapine 15 mg Tablet PO (20:24)
[2024-07-27] MEDS: zolpidem 5 mg Tablet 10 MG PO (20:24)
[2024-07-28] MEDS: calcium carbonate 500 mg Chew Tablet 1000 MG PO ×2 (02:37→09:02)
[2024-07-28 06:00] VITALS: BP 107/73; PULSE 94; RESP 20; O2SAT 100
[2024-07-28] MEDS: folic acid 1 mg Tablet PO (08:23)
[2024-07-28] MEDS: multivitamin therapeutic Tablet 1 TAB PO (08:23)
[2024-07-28] MEDS: fluoxetine 20 mg Capsule 40 MG PO (08:23)
[2024-07-28] MEDS: buprenorphine-naloxone 4-1 mg Film 2 EACH SUBLINGUAL ×2 (08:23→17:30)
[2024-07-28] MEDS: METHYLPHENIDATE 36 MG 1 EACH PO (08:23)
[2024-07-28] MEDS: thiamine 100 mg Tablet PO (08:23)
[2024-07-28 14:00] VITALS: BP 127/88; PULSE 91; RESP 18; TEMP 36.6; O2SAT 94
[2024-07-28] MEDS: nicotine 2 mg Gum 4 MG BUCCAL (15:10)
--- NOTE | 2024-07-28 16:01 | W.PM.NPUPNS ---
Subjective NPU Subjective: Patient presented today reporting that things are going okay. He was very focused on his Concerta increasing versus he did talk about switching to Vyvanse and we discussed the fact that that would be barking up a totally different tree. That it would be appropriate to increase his Concerta to see if that is beneficial but switching medications to the medication is only had 1 other time for a week would not be a good move given that we are trying to increase stability. He continues to report that he is doing fine with the Klonopin being discontinued on the Ambien for sleep. He denied any side effects of medication. Mental Status Exam MSE Comments: This an overweight versus obese white male in hospital scrubs with adequate grooming and eye contact. He had multiple tattoos on his body with fair eye contact and limited grooming. There was no evidence of any abnormal involuntary motor movements tics or tremors appreciated. There was evidence of mild psychomotor retardation. His speech was normal in regards to rate, rhythm, and volume. His mood was described as okay. His affect was flat today. His thought process was linear, logica, and goal-directed. His thought content had revealed no suicidal ideation with no homicidal ideation. There was no evidence of delusional thinking. He did not appear to be responding to internal stimuli. His attention span appeared improved. His recent and remote memory appeared fair at best. He was alert and oriented to person, place, and time. His insight was poor. His judgment was poor. His impulse control appeared limited. Vitals/I&O/Wt Last Vital Signs Temp 98 F 07/27/24 14:00 Pulse 94 07/28/24 06:00 Resp 20 H 07/28/24 06:00 BP 107/73 07/28/24 06:00 Pulse Ox 100 07/28/24 06:00 O2 Del Method Room Air 07/27/24 06:00 O2 Flow Rate 3 07/17/24 04:00 FiO2 2 07/16/24 06:45 Data NPU 07/15/24 14:51 07/15/24 14:51 A&P Assessment and plan (1) Depression, unspecified: (2) Suicidal ideation: (3) ADHD (attention deficit hyperactivity disorder), combined type: (4) Opioid dependence: (5) Polysubstance abuse: (6) PTSD (post-traumatic stress disorder): Plan 33-year-old male who was admitted to the ICU after significant overdose on methadone, liquid cough medicine containing dextromethorphan with suicidal intent and later admitted to the psychiatric unit once medically stabilized. 1. Continue current medication. Including Concerta and Suboxone. We discussed decreasing the Klonopin and possibly considering Ambien to assist with sleep. Discontinued Klonopin and started Ambien 10 mg p.o. nightly. Also will consider increasing Concerta to 54 mg p.o. daily. 2. Recommend sober living treatment after discharge at the highest level of care to which the patient is willing to commit 3. CIWA for alcohol withdrawal 4. Continue every 15 minute checks for safety. 5. Will attempt to gather collateral information. PDMP PDMP Reviewed: Not Reviewed Involuntary Hold Information Hold Status: Legal Status: Active Guardianship Date/Time Hold Expires: 07/21/24 @ 1530 96 Hour Hold: 96 Hour Involuntary Admission: No Attestations NPU Medical Necessity Statement*: Inpatient psychiatric hospitalization is medically necessary and the clinically appropriate intervention at this time. We will monitor medications and make changes as indicated. The patient's likely length of stay is 2-4 days. Coding Level of Care Code Acute Code for [facility] Fwd Diagnoses Depression, unspecified F32.A Suicidal ideation R45.851 ADHD (attention deficit hyperactivity disorder), combined type F90.2 Opioid dependence F11.20 Polysubstance abuse F19.10 PTSD (post-traumatic stress disorder) F43.10
[2024-07-28 19:59] VITALS: BP 119/74; PULSE 74; RESP 18; O2SAT 96
[2024-07-28] MEDS: zolpidem 5 mg Tablet 10 MG PO (20:27)
[2024-07-29 05:46] VITALS: RESP 16
--- NOTE | 2024-07-29 05:46 | PC.NURSE ---
pt requested for vitals not to be taken in the morning pt stated he would like to sleep and not be woke up. Charge Mary GENTILE notified
[2024-07-29] MEDS: multivitamin therapeutic Tablet 1 TAB PO (08:19)
[2024-07-29] MEDS: fluoxetine 20 mg Capsule 40 MG PO (08:19)
[2024-07-29] MEDS: buprenorphine-naloxone 4-1 mg Film 2 EACH SUBLINGUAL ×2 (08:19→17:07)
[2024-07-29] MEDS: METHYLPHENIDATE 36 MG 1 EACH PO (08:20)
[2024-07-29] MEDS: nicotine 2 mg Gum 4 MG BUCCAL (12:25)
[2024-07-29 14:00] VITALS: BP 109/76; PULSE 72; RESP 16; TEMP 36.3; O2SAT 99
--- NOTE | 2024-07-29 15:17 | W.PM.NPUPNS ---
Subjective NPU Subjective: Patient presented today reporting that he is doing all right. We discussed the risks, benefits and alternatives of increasing his Concerta 54 mg p.o. every morning tomorrow and he understood and agreed to proceed as documented in this note. We discussed his discontinuation of the Remeron and our continued discussion about his affinity for controlled substances as his solutions versus some of the other very good options that exist. We discussed how this might impact him in dealing with other providers in the future. We discussed his likely discharge next week if everything goes as expected with the administrative portion of the level 2 process. He denied any side effects of the medication and reported that the combination of the Remeron and Ambien left him feeling more sedated that he would want to feel and that the Ambien only last night left him feeling better this morning. Mental Status Exam MSE Comments: This an overweight versus obese white male in hospital scrubs with adequate grooming and eye contact. He had multiple tattoos on his body with fair eye contact and limited grooming. There was no evidence of any abnormal involuntary motor movements tics or tremors appreciated. There was evidence of mild psychomotor retardation. His speech was normal in regards to rate, rhythm, and volume. His mood was described as okay. His affect was flat today. His thought process was linear, logica, and goal-directed. His thought content had revealed no suicidal ideation with no homicidal ideation. There was no evidence of delusional thinking. He did not appear to be responding to internal stimuli. His attention span appeared improved. His recent and remote memory appeared fair at best. He was alert and oriented to person, place, and time. His insight was poor. His judgment was poor. His impulse control appeared limited. Vitals/I&O/Wt Last Vital Signs Temp 97.9 F 07/28/24 14:00 Pulse 74 07/28/24 19:59 Resp 16 07/29/24 05:46 BP 119/74 07/28/24 19:59 Pulse Ox 96 07/28/24 19:59 O2 Del Method Room Air 07/27/24 06:00 O2 Flow Rate 3 07/17/24 04:00 FiO2 2 07/16/24 06:45 Data NPU 07/15/24 14:51 07/15/24 14:51 A&P Assessment and plan (1) Depression, unspecified: (2) Suicidal ideation: (3) ADHD (attention deficit hyperactivity disorder), combined type: (4) Opioid dependence: (5) Polysubstance abuse: (6) PTSD (post-traumatic stress disorder): Plan 33-year-old male who was admitted to the ICU after significant overdose on methadone, liquid cough medicine containing dextromethorphan with suicidal intent and later admitted to the psychiatric unit once medically stabilized. 1. Continue current medication. Including Concerta and Suboxone. We discussed decreasing the Klonopin and possibly considering Ambien to assist with sleep. Discontinued Klonopin and started Ambien 10 mg p.o. nightly. Increasing Concerta to 54 mg p.o. daily. 2. Recommend sober living treatment after discharge at the highest level of care to which the patient is willing to commit 3. CIWA for alcohol withdrawal 4. Continue every 15 minute checks for safety. 5. Will attempt to gather collateral information. 6. Level 2 has been completed and is awaiting upload to his system. Pursuing options for hopeful placement next week. PDMP PDMP Reviewed: Last Reviewed 07/29/24 16:35 EDT by Rosas Mendoza MD Involuntary Hold Information Hold Status: Legal Status: Active Guardianship Date/Time Hold Expires: 07/21/24 @ 1530 96 Hour Hold: 96 Hour Involuntary Admission: No Attestations NPU Medical Necessity Statement*: Inpatient psychiatric hospitalization is medically necessary and the clinically appropriate intervention at this time. We will monitor medications and make changes as indicated. The patient's likely length of stay is 2-4 days. Coding Level of Care Code Acute Code for [facility] Fwd Diagnoses Depression, unspecified F32.A Suicidal ideation R45.851 ADHD (attention deficit hyperactivity disorder), combined type F90.2 Opioid dependence F11.20 Polysubstance abuse F19.10 PTSD (post-traumatic stress disorder) F43.10
[2024-07-29 19:39] VITALS: BP 117/70; PULSE 73; RESP 18; TEMP 36.9; O2SAT 97
[2024-07-29] MEDS: mirtazapine 15 mg Tablet PO (20:09)
[2024-07-29] MEDS: zolpidem 5 mg Tablet 10 MG PO (20:09)
[2024-07-29] MEDS: trazodone 50 mg Tablet PO (20:09)
[2024-07-30 06:00] VITALS: BP 103/66; PULSE 68; RESP 16; O2SAT 96
[2024-07-30] MEDS: multivitamin therapeutic Tablet 1 TAB PO (08:10)
[2024-07-30] MEDS: thiamine 100 mg Tablet PO (08:10)
[2024-07-30] MEDS: folic acid 1 mg Tablet PO (08:10)
[2024-07-30] MEDS: fluoxetine 20 mg Capsule 40 MG PO (08:11)
[2024-07-30] MEDS: buprenorphine-naloxone 4-1 mg Film 2 EACH SUBLINGUAL ×2 (08:11→17:36)
--- NOTE | 2024-07-30 09:13 | PC.NURSE ---
when changing room this comic writer observed pt having 4 flex pens one which was wrapped up to make it firmer. removed inkpens from pt pt became upset stating it was his right to have a pen and he wanted it back, informed pt at group time he will be allowed to use a pen then return it. pt continued to be argumenative with staff, stating who are you to put rules on me. when attempted to let pt know he has always had rules while he has been here at this facility. pt continued to attempt to argue at that time melania ross went to patient and talked with him.
[2024-07-30] MEDS: METHYLPHENIDATE 54 MG 1 EACH PO (13:36)
[2024-07-30 14:00] VITALS: BP 134/93; PULSE 82; RESP 18; TEMP 36.6; O2SAT 96
--- NOTE | 2024-07-30 17:20 | P.NPUPN_ITS ---
Subjective NPU 2 Subjective: Patient presented today reporting that life is good. He reports that he was very pleased to hear that the level 2 went through and at this point we are simply exploring options for placement. He continued to manage himself reasonably well on the unit per staff reports and direct observation. He did inquire about whether anyone had actually excepted him. We discussed that the process will now commence with people getting records and reviewing his situation and we are hopeful for discharge by next week. He reports tolerating the increase in the Concerta and denied any other issues or side effects. Mental Status Exam 2 MSE Comments: This an overweight versus obese white male in hospital scrubs with adequate grooming and eye contact. He had multiple tattoos on his body with fair eye contact and limited grooming. There was no evidence of any abnormal involuntary motor movements tics or tremors appreciated. There was evidence of mild psychomotor retardation. His speech was normal in regards to rate, rhythm, and volume. His mood was described as okay. His affect was flat today. His thought process was linear, logica, and goal-directed. His thought content had revealed no suicidal ideation with no homicidal ideation. There was no evidence of delusional thinking. He did not appear to be responding to internal stimuli. His attention span appeared improved. His recent and remote memory appeared fair at best. He was alert and oriented to person, place, and time. His insight was poor. His judgment was poor. His impulse control appeared limited. Vitals/I&O/Wt Last Vital Signs Temp 97.9 F 07/30/24 14:00 Pulse 82 07/30/24 14:00 Resp 18 07/30/24 14:00 BP 134/93 07/30/24 14:00 Pulse Ox 96 07/30/24 14:00 O2 Del Method Room Air 07/30/24 14:00 O2 Flow Rate 3 07/17/24 04:00 FiO2 2 07/16/24 06:45 07/30/24 07/30/24 07/30/24 06:59 14:59 22:59 Intake Total 300 / 300 Output Total 575 / 575 Balance -275 / -275 Data NPU 07/15/24 14:51 07/15/24 14:51 A&P Assessment and plan (1) Depression, unspecified: (2) Suicidal ideation: (3) ADHD (attention deficit hyperactivity disorder), combined type: (4) Opioid dependence: (5) Polysubstance abuse: (6) PTSD (post-traumatic stress disorder): Plan 33-year-old male who was admitted to the ICU after significant overdose on methadone, liquid cough medicine containing dextromethorphan with suicidal intent and later admitted to the psychiatric unit once medically stabilized. 1. Continue current medication. Including Concerta and Suboxone. We discussed decreasing the Klonopin and possibly considering Ambien to assist with sleep. Discontinued Klonopin and started Ambien 10 mg p.o. nightly. Increasing Concerta to 54 mg p.o. daily. 2. Recommend sober living treatment after discharge at the highest level of care to which the patient is willing to commit 3. CIWA for alcohol withdrawal 4. Continue every 15 minute checks for safety. 5. Will attempt to gather collateral information. 6. Level 2 has been completed and is awaiting upload to his system. Pursuing options for hopeful placement next week. PDMP PDMP Reviewed: Last Reviewed 07/30/24 12:27 EDT by Rosas Mendoza MD Involuntary Hold Information 2 Hold Status: Legal Status: Active Guardianship Date/Time Hold Expires: @ 1530 96 Hour Hold: 96 Hour Involuntary Admission: No Attestations NPU 2 Medical Necessity Statement*: Inpatient psychiatric hospitalization is medically necessary and the clinically appropriate intervention at this time. We will monitor medications and make changes as indicated. The patient's likely length of stay is 2-4 days. Coding Level of Care Code Acute Code for [facility] Fwd Diagnoses Depression, unspecified F32.A Suicidal ideation R45.851 ADHD (attention deficit hyperactivity disorder), combined type F90.2 Opioid dependence F11.20 Polysubstance abuse F19.10 PTSD (post-traumatic stress disorder) F43.10
[2024-07-30] MEDS: mirtazapine 15 mg Tablet PO (20:22)
[2024-07-30] MEDS: zolpidem 5 mg Tablet 10 MG PO (21:03)
[2024-07-30 21:07] VITALS: BP 138/85; PULSE 81; RESP 18; TEMP 36.7; O2SAT 100
[2024-07-31 06:00] VITALS: BP 121/73; PULSE 146; RESP 22; TEMP 38.1; O2SAT 97
[2024-07-31] MEDS: buprenorphine-naloxone 4-1 mg Film 2 EACH SUBLINGUAL ×2 (08:47→17:16)
[2024-07-31] MEDS: fluoxetine 20 mg Capsule 40 MG PO (08:47)
[2024-07-31] MEDS: multivitamin therapeutic Tablet 1 TAB PO (08:48)
[2024-07-31] MEDS: METHYLPHENIDATE 54 MG 1 EACH PO (08:48)
[2024-07-31 13:51] VITALS: BP 135/87; PULSE 105; RESP 16; TEMP 36.6; O2SAT 97
--- NOTE | 2024-07-31 18:15 | W.PM.NPUPNS ---
Subjective NPU Subjective: Patient presents today reporting that he is doing okay. He reported that he tolerated the increase in his Concerta but was discussing whether or not a move to 72 mg or adding some afternoon Ritalin will be appropriate. We discussed the fact that he just had the medication increased and needs to take some time to acclimate to the medication. We discussed the fact that he did get accepted to a facility with plan for discharge on Saturday and we will prefer not to have to change any of his medications prior to discharge. We discussed some going to his new location, getting working relationship with his provider and exploring any changes in that environment. He denied any side effects of medication. Mental Status Exam MSE Comments: This an overweight versus obese white male in hospital scrubs with adequate grooming and eye contact. He had multiple tattoos on his body with fair eye contact and limited grooming. There was no evidence of any abnormal involuntary motor movements tics or tremors appreciated. There was evidence of mild psychomotor retardation. His speech was normal in regards to rate, rhythm, and volume. His mood was described as okay. His affect was flat today. His thought process was linear, logica, and goal-directed. His thought content had revealed no suicidal ideation with no homicidal ideation. There was no evidence of delusional thinking. He did not appear to be responding to internal stimuli. His attention span appeared improved. His recent and remote memory appeared fair at best. He was alert and oriented to person, place, and time. His insight was poor. His judgment was poor. His impulse control appeared limited. Vitals/I&O/Wt Last Vital Signs Temp 98.1 F 07/31/24 20:55 Pulse 82 07/31/24 20:55 Resp 18 07/31/24 20:55 BP 140/93 07/31/24 20:55 Pulse Ox 100 07/31/24 20:55 O2 Del Method Room Air 07/31/24 20:55 O2 Flow Rate 3 07/17/24 04:00 FiO2 2 07/16/24 06:45 Data NPU 08/01/24 03:17 08/01/24 03:17 A&P Assessment and plan (1) Depression, unspecified: (2) Suicidal ideation: (3) ADHD (attention deficit hyperactivity disorder), combined type: (4) Opioid dependence: (5) Polysubstance abuse: (6) PTSD (post-traumatic stress disorder): Plan 33-year-old male who was admitted to the ICU after significant overdose on methadone, liquid cough medicine containing dextromethorphan with suicidal intent and later admitted to the psychiatric unit once medically stabilized. 1. Continue current medication. Including Concerta and Suboxone. We discussed decreasing the Klonopin and possibly considering Ambien to assist with sleep. Discontinued Klonopin and started Ambien 10 mg p.o. nightly. Increased Concerta to 54 mg p.o. daily. 2. Recommend sober living treatment after discharge at the highest level of care to which the patient is willing to commit 3. CIWA for alcohol withdrawal 4. Continue every 15 minute checks for safety. 5. Will attempt to gather collateral information. 6. Level 2 has been completed and is awaiting upload to his system. Pursuing options for hopeful placement next week. PDMP PDMP Reviewed: Last Reviewed 07/30/24 12:27 EDT by Rosas Mendoza MD Involuntary Hold Information Hold Status: Legal Status: Active Guardianship Date/Time Hold Expires: 07/21/24 @ 1530 96 Hour Hold: 96 Hour Involuntary Admission: No Attestations NPU Medical Necessity Statement*: Inpatient psychiatric hospitalization is medically necessary and the clinically appropriate intervention at this time. We will monitor medications and make changes as indicated. The patient's likely length of stay is 3 days. Coding Level of Care Code Acute Code for [facility] Fwd Diagnoses Depression, unspecified F32.A Suicidal ideation R45.851 ADHD (attention deficit hyperactivity disorder), combined type F90.2 Opioid dependence F11.20 Polysubstance abuse F19.10 PTSD (post-traumatic stress disorder) F43.10
[2024-07-31] MEDS: zolpidem 5 mg Tablet 10 MG PO (20:13)
[2024-07-31] MEDS: mirtazapine 15 mg Tablet PO (20:13)
[2024-07-31 20:55] VITALS: BP 140/93; PULSE 82; RESP 18; TEMP 36.7; O2SAT 100
[2024-08-01] VITALS (11 sets, daily range): BP systolic 56–133; BP diastolic 31–91; PULSE 64–108; RESP 14–24; TEMP 36.6–37.2; O2SAT 94–100
--- NOTE | 2024-08-01 03:02 | ECG_ITS ---
eEye Test Date: 2024-08-01 Pat Name: Neto Simpson Department: Room: 127 Gender: Male [employer] Technician: : 1990 Requested By: Justyn Carmichael Order Number: [id number] Julia MD: BLAZE GOODMAN Measurements Intervals [place] Rate: 60 P: 1 LA: 137 QRS: 30 QRSD: 109 T: 13 QT: 427 QTc: 429 Interpretive Statements SINUS RHYTHM LOW QRS VOLTAGE IN PRECORDIAL LEADS [QRS DEFLECTION < 1.0 mV IN CHEST LEADS] INTERPRETATION BASED ON A DEFAULT AGE OF 40 YEARS Compared to ECG 07/16/2024 13:15:48 Low QRS voltage now present Sinus tachycardia no longer present T-wave abnormality no longer present Electronically Signed On 08-03-2024 21:00:00 CDT by BLAZE GOODMAN [id number]
--- NOTE | 2024-08-01 03:20 | P.EN_ITS ---
Event Note Event Note: Rapid Response Note Rapid response called for reported syncope. Nursing reported patient came to window on NPU complaining of unwell sensation followed by syncopal episode. No reported falling or head trauma. He was reportedly found to be initially be bradycardic and hypotensive. Patient seen and evaluated. He is now awake. Denies prior history of similar events. Expresses concern about possible medication interactions. Notes his Prozac was a dissolvable tablet today which he has never seen it like that before. He also reportedly received Ambien and Remeron. He currently endorses tremulous state which is new since event. Vitals checked and now unremarkable. EKG obtained and reviewed. No cardiac block. Normal sinus rhythm. Orthostatic vitals obtained bedside and unremarkable. Labs ordered A/P: Suspect vasovagal event. Not orthostatic. No block on EKG. Will rule o ut any contributing electrolyte abnormality. Labs ordered.
[2024-08-01 03:23] LABS: Glucose Point of Care 97 mg/dL (70-110)
[2024-08-01 03:27] LABS: Basophils # 0.1 10^3/uL (0.0-0.1); Basophils % 0.7 %; Eosinophils # 0.5 10^3/uL (0.0-0.8); Eosinophils % 5.3 %; Hematocrit 46.6 % (37-53); Lymphocytes # 3.2 10^3/uL (0.8-4.8); Lymphocytes % 35.3 %; Mean Corpuscular HGB Conc 31.8 g/dL (30-55); Mean Corpuscular Hemoglobin 27.6 pg (27-33); Mean Corpuscular Volume 86.8 fl (82-101); Mean Platelet Volume 9.1 fL (7.4-10.4); Monocytes # 0.7 10^3/uL (0.2-0.9); Monocytes % 8.1 %; Neutrophils # 4.53 10^3/uL (1.8-7.7); Neutrophils % 50.4 %; Nucleated Red Blood Cells % 0 %; Platelet Count 436 10^3/cmm (157-399); Red Blood Count 5.37 10^6/uL (3.85-5.65); Red Cell Distribution Width 11.3 % (12.1-15.1); White Blood Count 8.99 10^3/uL (3.29-11.43)
[2024-08-01 03:50] LABS: Alanine Aminotransferase 23 U/L (0-41); Albumin Level 4.2 g/dL (3.5-5.2); Alkaline Phosphatase 79 U/L (40-130); Anion Gap 12.7 (5-19); Aspartate Amino Transferase 22 U/L (0-40); Blood Urea Nitrogen 10 mg/dL (6-20); Carbon Dioxide 28 mmol/L (22-29); Chloride 105 mmol/L (98-107); Creatinine Clr Calc Pharmacy 104.9459; Globulin 3.3 g/dL (1.3-4.6); Glomerular Filtration Rate 76.6 mL/min (90-130); Glucose 86 mg/dL (65-115); Magnesium 2.5 mg/dL (1.7-2.3); Osmolality Calculated 292 mOsm/kg (285-295); Phosphorus 3.3 mg/dL (2.5-4.5); Potassium 3.7 mmol/L (3.5-5.1); Sodium 142 mmol/L (136-145); Total Bilirubin 0.5 mg/dL (0.15-1.2); Total Protein 7.5 g/dL (6.6-8.7)
[2024-08-01] MEDS: sodium chloride 0.9% 1,000 ML 999 ML IV (05:51)
[2024-08-01] MEDS: LORazepam 1 mg Tablet PO (08:48)
--- NOTE | 2024-08-01 09:49 | PC.NURSE ---
pt states while trying to rest he feels like there is a jolt/a feeling in his head then when ask to describe the jolt he stated better described as a nerve- anxiety ( no pain) like a panic feeling. don't you know I am suppose to be leaving Saturday and the doctor hasn't come to see me are you trying to make it so I cant leave Saturday this nurse reassured pt that our intention is have him Saturday. pt then stated I have to be stable to leave you know that right and I am not stable. reassured pt his vital signs are still in normal range.
--- NOTE | 2024-08-01 10:27 | PC.NURSE ---
pt came up to nurses station stating the jolt feeling described in earlier note started happening when he took Ambien. last night when he fell asleep he started to feel panic and then when he fell asleep he felt the jolt.
--- NOTE | 2024-08-01 11:04 | PC.NURSE ---
07/31/24 Rapid Response 257 Neto came to the nursing station et stated he didn't feel right . He was escorted to sit on the bench nearby him, et nsg began to assess him/ vital signs. While attempting to obtain vital signs, Neto lost consciousness, fell forward et began snoring respirations. Consciousness returned in approximately 2 seconds et nsg was able to support his weight to avoid him falling onto the floor. Rapid response was initiated. Vital signs included a blood pressure of 56/31. Patient was alert et resistant of care, however nsg was able to assist him to sit in a wheel chair et he was wheeled to his bed to safely obtain EKG et continue triaging. Dr. Ontiveros ordered IV NS bolus et this nurse obtained IV access via left A/C space via 22g catheter. Neto remained uncooperative et continued to lash out toward staff, including physician. While NS was running, Neto accelerated behaviors repeatedly, attempting to engage staff in conflict. When staff attempted to help him with his requests, he changed requests et handiapped physician/staff's ability to improve his compaints. I need you to give me medicine to help me sleep right now and I don't want to go to sleep so get me something to wake me up too and you all just stand there and watch me lay in here in a bed in nowhere to and don't care... I know what the problem is, it's my suboxone I took today at five and now I feel weird and you can't give it to me again and I need it but don't tell let the doctor that was just in here (Rama) put that in a note to my doctor or he'll take away my concerta... (Repeatedly throughout the NOC, then in the early AM- Can you please go get my suboxone for me early right now because I know that it wasn't it and I need it and it's not from that and if you knew what it's like for ADHD you'd go get it right now because I'm hurting and my chest feels tight like panic and you can't take away my Concerta because I need it for the rest of my life and go get the suboxone what are you waiting for you're (expletives....) Neto stood up from the bed et stated I'm done here with this place you're going to let me and I'm leaving right now you can't stop me and I'm calling state because I can say anything I want and you have to do it or they'll never know why and if you don't right now I'm going to and you can't what are you going to do stop me.. Security was summoned to assist et Neto laid back down to let his IV fluids continue to run while complaining to Kevan Jasso. When infusion was complete, IV tubing was removed et site secured without concern. VS obtained et Dr. Mendoza contacted to obtain further order. Continuing to monitor until oncoming physician psychology teacher et Dr. Mendoza advise futher. Neto continues to approach staff repeatedly with aggressive demands et hostile language/ unreasonable, unobtainable requests/ demands.
[2024-08-01] MEDS: fluoxetine 20 mg Capsule 40 MG PO (11:09)
[2024-08-01] MEDS: buprenorphine-naloxone 4-1 mg Film 2 EACH SUBLINGUAL ×2 (11:09→17:23)
[2024-08-01] MEDS: METHYLPHENIDATE 54 MG 1 EACH PO (11:10)
[2024-08-01] MEDS: thiamine 100 mg Tablet PO (11:10)
[2024-08-01] MEDS: folic acid 1 mg Tablet PO (11:10)
[2024-08-01] MEDS: multivitamin therapeutic Tablet 1 TAB PO (11:10)
--- NOTE | 2024-08-01 19:30 | P.NPUPN_ITS ---
Subjective NPU 2 Subjective: Patient presented today reporting that he is doing fine. He continued to ask questions about medication changes and we discussed the fact that he is leaving in 2 days and that we would prefer not to make any changes allow his new landing spot to the the determined there is of any additional or changes in medication. He continued to be happy about the fact that he was going to this new facility and denied any side effects to his current medication. We discussed the episode this morning and he thought it might be secondary to anxiety or something of that nature we talked about his hydration status and making sure he was staying hydrated. Mental Status Exam 2 MSE Comments: This an overweight versus obese white male in hospital scrubs with adequate grooming and eye contact. He had multiple tattoos on his body with fair eye contact and limited grooming. There was no evidence of any abnormal involuntary motor movements tics or tremors appreciated. There was evidence of mild psychomotor retardation. His speech was normal in regards to rate, rhythm, and volume. His mood was described as okay. His affect was flat today. His thought process was linear, logica, and goal-directed. His thought content had revealed no suicidal ideation with no homicidal ideation. There was no evidence of delusional thinking. He did not appear to be responding to internal stimuli. His attention span appeared improved. His recent and remote memory appeared fair at best. He was alert and oriented to person, place, and time. His insight was poor. His judgment was poor. His impulse control appeared limited. Vitals/I&O/Wt Last Vital Signs Temp 99.0 F 08/01/24 14:00 Pulse 108 H 08/01/24 14:00 Resp 16 08/01/24 14:00 BP 119/73 08/01/24 14:00 Pulse Ox 98 08/01/24 14:00 O2 Del Method Room Air 08/01/24 09:49 O2 Flow Rate 3 07/17/24 04:00 FiO2 2 07/16/24 06:45 08/01/24 08/01/24 08/01/24 06:59 14:59 22:59 Intake Total 300 / 300 Output Total 575 / 575 Balance -275 / -275 Data NPU 08/01/24 03:17 08/01/24 03:17 A&P Assessment and plan (1) Depression, unspecified: (2) Suicidal ideation: (3) ADHD (attention deficit hyperactivity disorder), combined type: (4) Opioid dependence: (5) Polysubstance abuse: (6) PTSD (post-traumatic stress disorder): Plan 33-year-old male who was admitted to the ICU after significant overdose on methadone, liquid cough medicine containing dextromethorphan with suicidal intent and later admitted to the psychiatric unit once medically stabilized. 1. Continue current medication. Including Concerta and Suboxone. We discussed decreasing the Klonopin and possibly considering Ambien to assist with sleep. Discontinued Klonopin and started Ambien 10 mg p.o. nightly. Increased Concerta to 54 mg p.o. daily. 2. Recommend sober living treatment after discharge at the highest level of care to which the patient is willing to commit 3. CIWA for alcohol withdrawal 4. Continue every 15 minute checks for safety. 5. Will attempt to gather collateral information. 6. Level 2 has been completed and is awaiting upload to his system. Pursuing options for hopeful placement next week. PDMP PDMP Reviewed: Last Reviewed 07/30/24 12:27 EDT by Rosas Mendoza MD Involuntary Hold Information 2 Hold Status: Legal Status: Active Guardianship Date/Time Hold Expires: @ 1530 96 Hour Hold: 96 Hour Involuntary Admission: No Attestations NPU 2 Medical Necessity Statement*: Inpatient psychiatric hospitalization is medically necessary and the clinically appropriate intervention at this time. We will monitor medications and make changes as indicated. The patient's likely length of stay is 2 days. Coding Level of Care Code Acute Code for [facility] Fwd Diagnoses Depression, unspecified F32.A Suicidal ideation R45.851 ADHD (attention deficit hyperactivity disorder), combined type F90.2 Opioid dependence F11.20 Polysubstance abuse F19.10 PTSD (post-traumatic stress disorder) F43.10
[2024-08-01] MEDS: mirtazapine 15 mg Tablet PO (20:17)
[2024-08-01] MEDS: zolpidem 5 mg Tablet 10 MG PO (20:18)
--- NOTE | 2024-08-01 22:15 | PC.NURSE ---
PATIENT CAME TO DESK REQUESTING HIS BLOOD PRESSURE BE CHECKED. STATED HE WAS HAVING THE SAME KIND OF FEELING WHEN HE FAINTED EARLIER . I DON'T KNOW HOW TO EXPLAIN IT TO YOU CAUSE YOU WOULDN'T KNOW. LIKE I'M GOING INTO A COMA. BLOOD PRESSURE OBTAINED OF 133/91. PATIENT ADVISED TO TELL THE DOCTOR TOMORROW ABOUT THE FEELING.
[2024-08-02 06:00] VITALS: BP 113/73; PULSE 79; RESP 18; O2SAT 99
[2024-08-02] MEDS: thiamine 100 mg Tablet PO (08:59)
[2024-08-02] MEDS: folic acid 1 mg Tablet PO (08:59)
[2024-08-02] MEDS: METHYLPHENIDATE 54 MG 1 EACH PO (08:59)
[2024-08-02] MEDS: multivitamin therapeutic Tablet 1 TAB PO (09:00)
[2024-08-02] MEDS: fluoxetine 20 mg Capsule 40 MG PO (09:01)
[2024-08-02] MEDS: buprenorphine-naloxone 4-1 mg Film 2 EACH SUBLINGUAL (09:01)
[2024-08-02 14:00] VITALS: BP 130/82; PULSE 75; RESP 18; TEMP 36.4; O2SAT 97
--- NOTE | 2024-08-02 16:22 | P.NPUPN_ITS ---
Subjective NPU 2 Subjective: Patient presented today reporting that life is going okay. We discussed the risks, benefits and alternatives of making any medication changes this late in the game given he is discharging tomorrow. He continued to report wanting to have things teed up for when he gets there so that he does not have to ask for any changes there. We discussed that we agreed that he should get there and allow things to settle before he starts making any requests for changes or anything of that nature. He continued to report that he felt good about things getting resolved and him having a place to go to. We continued to discuss how significant it is that this occurred so quickly. He denied any side effects to his medication. His blood pressure has remained without incident after the concerns several days ago. Mental Status Exam 2 MSE Comments: This an overweight versus obese white male in hospital scrubs with adequate grooming and eye contact. He had multiple tattoos on his body with fair eye contact and limited grooming. There was no evidence of any abnormal involuntary motor movements tics or tremors appreciated. There was evidence of mild psychomotor retardation. His speech was normal in regards to rate, rhythm, and volume. His mood was described as okay. His affect was flat today. His thought process was linear, logical, and goal-directed. His thought content had revealed no suicidal ideation with no homicidal ideation. There was no evidence of delusional thinking. He did not appear to be responding to internal stimuli. His attention span appeared improved. His recent and remote memory appeared fair at best. He was alert and oriented to person, place, and time. His insight was poor. His judgment was poor. His impulse control appeared limited. Vitals/I&O/Wt Last Vital Signs Temp 98.0 F 08/02/24 21:25 Pulse 81 08/02/24 21:25 Resp 18 08/02/24 21:25 BP 113/73 08/02/24 21:25 Pulse Ox 97 08/02/24 21:25 O2 Del Method Room Air 08/01/24 09:49 O2 Flow Rate 3 07/17/24 04:00 FiO2 2 07/16/24 06:45 Weight last 48 hrs Weight 92.442 kg Data NPU 08/01/24 03:17 08/01/24 03:17 A&P Assessment and plan (1) Depression, unspecified: (2) Suicidal ideation: (3) ADHD (attention deficit hyperactivity disorder), combined type: (4) Opioid dependence: (5) Polysubstance abuse: (6) PTSD (post-traumatic stress disorder): Plan 33-year-old male who was admitted to the ICU after significant overdose on methadone, liquid cough medicine containing dextromethorphan with suicidal intent and later admitted to the psychiatric unit once medically stabilized. 1. Continue current medication. Including Concerta and Suboxone. We discussed decreasing the Klonopin and possibly considering Ambien to assist with sleep. Discontinued Klonopin and started Ambien 10 mg p.o. nightly. Increased Concerta to 54 mg p.o. daily. 2. Recommend sober living treatment after discharge at the highest level of care to which the patient is willing to commit 3. CIWA for alcohol withdrawal 4. Continue every 15 minute checks for safety. 5. Will attempt to gather collateral information. 6. Level 2 has been completed and is awaiting upload to his system. Level to complete in system. He has been accepted by the program and will discharge tomorrow. PDMP PDMP Reviewed: Last Reviewed 07/30/24 12:27 EDT by Rosas Mendoza MD Involuntary Hold Information 2 Hold Status: Legal Status: Active Guardianship Date/Time Hold Expires: @ 1530 96 Hour Hold: 96 Hour Involuntary Admission: No Attestations NPU 2 Medical Necessity Statement*: Inpatient psychiatric hospitalization is medically necessary and the clinically appropriate intervention at this time. We will monitor medications and make changes as indicated. The patient's likely length of stay is 1 day. Coding Level of Care Code Acute Code for [facility] Fwd Diagnoses Depression, unspecified F32.A Suicidal ideation R45.851 ADHD (attention deficit hyperactivity disorder), combined type F90.2 Opioid dependence F11.20 Polysubstance abuse F19.10 PTSD (post-traumatic stress disorder) F43.10
--- NOTE | 2024-08-02 18:15 | PC.NURSE ---
this level vial marker attempted to administer suboxone pt stated he no longer wants to take it in the evening. pt also states he does not want it to look like her refused when he had informed me he did not want to take it in the evenings any more.
[2024-08-02] MEDS: OLANZapine 5 mg ODT PO (20:06)
[2024-08-02] MEDS: mirtazapine 15 mg Tablet PO (20:06)
[2024-08-02] MEDS: zolpidem 5 mg Tablet 10 MG PO (20:08)
[2024-08-02 21:25] VITALS: BP 113/73; PULSE 81; RESP 18; TEMP 36.7; O2SAT 97
[2024-08-03 06:00] VITALS: BP 117/73; PULSE 77; RESP 18; O2SAT 94
[2024-08-03] MEDS: folic acid 1 mg Tablet PO (08:41)
[2024-08-03] MEDS: multivitamin therapeutic Tablet 1 TAB PO (08:41)
[2024-08-03] MEDS: buprenorphine-naloxone 4-1 mg Film 2 EACH SUBLINGUAL (08:41)
[2024-08-03] MEDS: thiamine 100 mg Tablet PO (08:41)
[2024-08-03] MEDS: fluoxetine 20 mg Capsule 40 MG PO (08:41)
[2024-08-03] MEDS: METHYLPHENIDATE 54 MG 1 EACH PO (08:42)
--- NOTE | 2024-08-03 09:08 | PC.NURSE ---
Signee called report to [facility] to Rafael PEREZ. Signee called in a 30 day supply of medication to [facility] in [facility]. Pt. will need a hard copy script for his concerta.
--- NOTE | 2024-08-03 10:47 | PC.NURSE ---
Pt. called the pharmacy and was upset because the pharmacy said they have not received a script for his medication and wanted to know why this nurse said the meds had been called in. Signee told pt. not to worry about it that the had not written the DC orders as of yet. Pt. wanted to know why. Signee informed pt. he would have to ask the Dr. Pt. has been up at the nurses station window about 20 times this am attempting to listen to conversations and has been difficult this am.
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
[2024-08-03 11:48] VITALS: BP 117/73; PULSE 77; RESP 18; TEMP 36.6; O2SAT 94
== END 2024-08-03 11:57 | disposition home or self-care (01) | DRG 918 ==
LOC: ER 16:25 → ER IP 17:39 → ICU 19:49 → NP 07-17 12:02
PROVIDERS: Admitting Provider Internal Medicine; Emergency Provider Emergency Medicine; Visit Provider Psychiatry & Neurology Psychiatry
DX: T40.3X2A Poisoning by methadone, intentional self-harm, initial encounter (principal); R45.851 Suicidal ideations; F10.129 Alcohol abuse with intoxication, unspecified; F19.10 Other psychoactive substance abuse, uncomplicated; Y90.6 Blood alcohol level of 120-199 mg/100 ml; F32.A Depression, unspecified; F90.9 Attention-deficit hyperactivity disorder, unspecified type; F43.10 Post-traumatic stress disorder, unspecified; Z91.51 Personal history of suicidal behavior; Z87.820 Personal history of traumatic brain injury; E66.9 Obesity, unspecified; Z68.30 Body mass index [BMI] 30.0-30.9, adult; I10 Essential (primary) hypertension; R45.850 Homicidal ideations; E87.6 Hypokalemia; D75.839 Thrombocytosis, unspecified; N28.9 Disorder of kidney and ureter, unspecified; R00.1 Bradycardia, unspecified; G47.33 Obstructive sleep apnea (adult) (pediatric); I95.9 Hypotension, unspecified
CPT/HCPCS: 36415; 36416; 71045; 80053; 80306; 80307; 82962; 83735; 84100; 84145; 85025; 93005; 96376; 97150; 97165; 99285; J0573; J2060; J2310; J7030; J9999